=== PATIENT | male | born 1965 | race Caucasian/White ===

== ENCOUNTER 2019-03-22 14:48 | Inpatient (IN) | payer MEDICAID ==
[~2019-03-22] VITALS: Ht 182.9 cm; Wt 105.2 kg
[2019-03-22 15:35] LABS: BASOPHILS % (AUTO) 0.5 % (0.0-2.0); EOSINOPHILS % (AUTO) 0.4 % (1.0-6.0); HEMATOCRIT 45.2 % (41-53); HEMOGLOBIN 15.3 g/dL (13.5-17.5); LYMPHOCYTES # (AUTO) 1.2 K/uL (1.0-4.8); LYMPHOCYTES % (AUTO) 19.8 % (22.0-44.0); MEAN CORPUSCULAR HEMOGLOBIN 32.3 pg (26.0-34.0); MEAN CORPUSCULAR HGB CONC 33.9 G/dL (31.0-37.0); MEAN CORPUSCULAR VOLUME 95 fL (80-100); MONOCYTES # (AUTO) 0.5 K/uL (0.1-1.0); MONOCYTES % (AUTO) 7.8 % (2.0-9.0); NEUTROPHILS # (AUTO) 4.4 K/uL (1.8-7.7); NEUTROPHILS % (AUTO) 71.5 % (40.0-70.0); PLATELET COUNT (AUTO) 285 K/uL (150-450); RED BLOOD CELL COUNT(AUTO) 4.73 MIL/uL (4.50-5.90); RED CELL DISTRIBUTION WIDTH 13.4 % (11.5-14.5)
[2019-03-22] MEDS ORDERED: ALPR0.5T8 PO (15:43)
[2019-03-22 15:44] LABS: ANION GAP 12 mmol/L (8-16); CALCIUM, TOTAL 9.4 mg/dL (8.8-10.5); CARBON DIOXIDE 21 mmol/L (22-29); CHLORIDE 101 mmol/L (98-107); CREATININE 1.02 mg/dL (0.60-1.30); GLOMERULAR FILTR. RATE CALC > 60 mL/min (>60); GLUCOSE,RANDOM 221 mg/dL (70-110); POTASSIUM 3.9 mmol/L (3.5-5.1); SODIUM SERUM 134 mmol/L (136-145); UREA NITROGEN, BLOOD 9 mg/dL (7-18)
[2019-03-22 15:49] LABS: ALANINE AMINOTRANSFERASE 33 U/L (12-78); ALBUMIN 4.2 g/dL (3.4-5.0); ALKALINE PHOSPHATASE 105 U/L (46-116); ASPARTATE AMINOTRANSFERASE 20 U/L (15-37); BILIRUBIN,TOTAL 0.6 mg/dL (0.1-1.0); TOTAL PROTEIN, SERUM 7.5 g/dL (6.4-8.2)
[2019-03-22] MEDS ORDERED: LORazepam 2 MG TABLET PO ONE (16:00)
[2019-03-22 16:34] LABS: AMPHET/METH SCREEN,URINE NEGATIVE (NEGATIVE); BARBITURATE SCREEN, URINE NEGATIVE (NEGATIVE); BENZODIAZEPINES SCREEN,URINE POSITIVE (NEGATIVE); CANNABINOID SCREEN,URINE NEGATIVE (NEGATIVE); COCAINE SCREEN,URINE NEGATIVE (NEGATIVE); METHADONE SCREEN, URINE NEGATIVE (NEGATIVE); OPIATE SCREEN,URINE NEGATIVE (NEGATIVE)
[2019-03-22 16:35] LABS: PHENCYCLIDINE SCREEN,URINE NEGATIVE (NEGATIVE)
[2019-03-22] MEDS ORDERED: HALOPERIDOL 5 MG TABLET PO PRN (17:15)
[2019-03-22] MEDS ORDERED: LORazepam 2 MG TABLET PO PRN (17:15)
[2019-03-22] MEDS ORDERED: ACETAMINOPHEN 500 MG TABLET PO ONE (19:45)
[2019-03-22 20:00] VITALS: BP 139/92
[2019-03-22] MEDS ORDERED: ALBUTEROL SULFATE HFA 90 MCG/PUFF 8 GM INHALER IH PRN (20:45)
[2019-03-22] MEDS ORDERED: GuaiFENesin/D-METHORPHAN [SUGAR-FREE] 200-20MG/10 ML SYRUP UDCUP PO PRN (20:45)
[2019-03-22] MEDS ORDERED: DOCUSATE SODIUM 100 MG CAPSULE PO PRN (20:45)
[2019-03-22] MEDS ORDERED: PETROLATUM,WHITE 28 GM JELLY TP PRN (20:45)
[2019-03-22] MEDS ORDERED: IBUPROFEN 400 MG TABLET PO PRN (20:45)
[2019-03-22] MEDS ORDERED: CloNIDine HCL 0.1 MG TABLET PO PRN (20:45)
[2019-03-22] MEDS ORDERED: MAGNESIUM HYDROXIDE SUSPENSION 30 ML UDCUP PO PRN (20:45)
[2019-03-22 21:00] VITALS: BP 138/89
[2019-03-22 22:07] VITALS: BP 132/94
[2019-03-22 23:00] VITALS: BP 142/92
[2019-03-23] VITALS (7 sets, daily range): BP systolic 110–160; BP diastolic 75–98
[2019-03-23] MEDS: ONDANSETRON HCL 4 MG TABLET PO PRN (05:29)
[2019-03-23 06:29] LABS: BASOPHILS % (AUTO) 0.4 % (0.0-2.0); EOSINOPHILS % (AUTO) 1.3 % (1.0-6.0); HEMATOCRIT 45.1 % (41-53); HEMOGLOBIN 15.2 g/dL (13.5-17.5); LYMPHOCYTES # (AUTO) 1.3 K/uL (1.0-4.8); LYMPHOCYTES % (AUTO) 23.2 % (22.0-44.0); MEAN CORPUSCULAR HEMOGLOBIN 32.4 pg (26.0-34.0); MEAN CORPUSCULAR HGB CONC 33.6 G/dL (31.0-37.0); MEAN CORPUSCULAR VOLUME 96 fL (80-100); MONOCYTES # (AUTO) 0.6 K/uL (0.1-1.0); MONOCYTES % (AUTO) 9.9 % (2.0-9.0); NEUTROPHILS # (AUTO) 3.7 K/uL (1.8-7.7); NEUTROPHILS % (AUTO) 65.2 % (40.0-70.0); PLATELET COUNT (AUTO) 249 K/uL (150-450); RED BLOOD CELL COUNT(AUTO) 4.68 MIL/uL (4.50-5.90); RED CELL DISTRIBUTION WIDTH 13.3 % (11.5-14.5)
[2019-03-23 06:33] LABS: HEMOGLOBIN A1C 6.9 % (4.5-6.2)
[2019-03-23 06:49] LABS: ALANINE AMINOTRANSFERASE 31 U/L (12-78); ALBUMIN 3.8 g/dL (3.4-5.0); ALKALINE PHOSPHATASE 99 U/L (46-116); ANION GAP 13 mmol/L (8-16); ASPARTATE AMINOTRANSFERASE 16 U/L (15-37); BILIRUBIN,TOTAL 0.9 mg/dL (0.1-1.0); CALCIUM, TOTAL 9.2 mg/dL (8.8-10.5); CARBON DIOXIDE 25 mmol/L (22-29); CHLORIDE 101 mmol/L (98-107); CREATININE 0.91 mg/dL (0.60-1.30); GLOMERULAR FILTR. RATE CALC > 60 mL/min (>60); GLUCOSE,RANDOM 193 mg/dL (70-110); POTASSIUM 4.2 mmol/L (3.5-5.1); SODIUM SERUM 139 mmol/L (136-145); THYROID STIMULATING HORMONE 1.67 uIU/mL (0.36-3.74); TOTAL PROTEIN, SERUM 6.6 g/dL (6.4-8.2); UREA NITROGEN, BLOOD 9 mg/dL (7-18)
[2019-03-23] MEDS ORDERED: LORazepam 2 MG TABLET PO PRN (07:00)
[2019-03-23] MEDS: THIAMINE HCL 100 MG TABLET PO SCH (08:00)
[2019-03-23] MEDS: FOLIC ACID 1 MG TABLET PO SCH (08:00)
[2019-03-23] MEDS: MULTIVITAMINS, THERAPEUTIC TABLET PO SCH (08:00)
[2019-03-23] MEDS: LORazepam 2 MG TABLET PO SCH ×4 (08:03→20:14)
[2019-03-23 09:00] LABS: CHOL/HDL RATIO 5.4 (4.2-7.3); CHOLESTEROL 190 mg/dL (131-200); HDL CHOLESTEROL 35 mg/dL (40-60); TRIGLYCERIDES 480 mg/dL (15-150)
[2019-03-23] MEDS: LOPERAMIDE HCL 2 MG CAPSULE PO PRN (12:34)
[2019-03-24] MEDS: ZOLPIDEM TARTRATE 10 MG TABLET PO PRN ×2 (00:23→22:40)
[2019-03-24 00:45] VITALS: BP 128/101
[2019-03-24 00:47] VITALS: BP 128/101
[2019-03-24 06:35] VITALS: BP 109/86
[2019-03-24] MEDS: ACETAMINOPHEN 325 MG TABLET PO PRN (06:40)
[2019-03-24] MEDS: MetFORMIN HCL 500 MG TABLET PO SCH (06:46)
[2019-03-24] MEDS: ONDANSETRON HCL 4 MG TABLET PO PRN (08:03)
[2019-03-24] MEDS: MULTIVITAMINS, THERAPEUTIC TABLET PO SCH (08:03)
[2019-03-24] MEDS: PARoxetine HCL 20 MG TABLET PO SCH (08:04)
[2019-03-24] MEDS: LORazepam 2 MG TABLET PO SCH ×4 (08:04→20:28)
[2019-03-24] MEDS: FOLIC ACID 1 MG TABLET PO SCH (08:04)
[2019-03-24] MEDS: THIAMINE HCL 100 MG TABLET PO SCH (08:04)
[2019-03-24] MEDS: AmLODIPine BESYLATE 5 MG TABLET PO SCH (08:04)
[2019-03-24] MEDS: MAG HYDROX/AL HYDROX/SIMETH ES 30 ML SUSPENSION UDCUP PO PRN (08:06)
[2019-03-24 08:43] VITALS: BP 145/89
[2019-03-24] MEDS: ONDANSETRON HCL 4 MG/2 ML VIAL IM PRN (11:47)
[2019-03-24 16:30] VITALS: BP 146/99
[2019-03-24 18:00] VITALS: BP 140/94
[2019-03-25 01:15] VITALS: BP 126/89
[2019-03-25] MEDS: ONDANSETRON HCL 4 MG/2 ML VIAL IM PRN ×2 (01:17→10:39)
[2019-03-25] MEDS: LOPERAMIDE HCL 2 MG CAPSULE PO PRN ×2 (01:17→05:25)
[2019-03-25 06:35] LABS: GLUCOMETER DEV NAME(LOC) 3E.I; GLUCOSE,POINT OF CARE 205 MG/DL (70-110)
[2019-03-25] MEDS ORDERED: LORazepam 1 MG TABLET PO PRN (07:00)
[2019-03-25] MEDS: MetFORMIN HCL 500 MG TABLET PO SCH (07:01)
[2019-03-25 08:05] VITALS: BP 135/81
[2019-03-25] MEDS: FOLIC ACID 1 MG TABLET PO SCH (08:05)
[2019-03-25] MEDS: AmLODIPine BESYLATE 5 MG TABLET PO SCH (08:05)
[2019-03-25] MEDS: PARoxetine HCL 20 MG TABLET PO SCH (08:05)
[2019-03-25] MEDS: MULTIVITAMINS, THERAPEUTIC TABLET PO SCH (08:05)
[2019-03-25] MEDS: THIAMINE HCL 100 MG TABLET PO SCH (08:05)
[2019-03-25] MEDS: LORazepam 1 MG TABLET PO SCH ×4 (08:05→21:02)
[2019-03-25] MEDS: NICOTINE 14 MG/24 HOUR PATCH TD PRN (09:26)
[2019-03-25 12:51] VITALS: BP 130/85
[2019-03-25 12:52] VITALS: BP 130/85
[2019-03-25 16:56] LABS: GLUCOMETER DEV NAME(LOC) 3E.I; GLUCOSE,POINT OF CARE 193 MG/DL (70-110)
[2019-03-25 17:18] VITALS: BP 129/76
[2019-03-25] MEDS: ZOLPIDEM TARTRATE 10 MG TABLET PO PRN (23:16)
[2019-03-26 00:27] VITALS: BP 122/85
[2019-03-26 00:30] VITALS: BP 122/85
[2019-03-26 05:46] LABS: GLUCOMETER DEV NAME(LOC) 3E.I; GLUCOSE,POINT OF CARE 184 MG/DL (70-110)
[2019-03-26] MEDS: ONDANSETRON HCL 4 MG/2 ML VIAL IM PRN ×2 (06:26→06:27)
[2019-03-26] MEDS: MetFORMIN HCL 500 MG TABLET PO SCH (06:59)
[2019-03-26] MEDS: THIAMINE HCL 100 MG TABLET PO SCH (08:53)
[2019-03-26] MEDS: FOLIC ACID 1 MG TABLET PO SCH (08:54)
[2019-03-26] MEDS: MULTIVITAMINS, THERAPEUTIC TABLET PO SCH (08:54)
[2019-03-26] MEDS: AmLODIPine BESYLATE 5 MG TABLET PO SCH (08:54)
[2019-03-26] MEDS: PARoxetine HCL 20 MG TABLET PO SCH (08:54)
[2019-03-26] MEDS: MAG HYDROX/AL HYDROX/SIMETH ES 30 ML SUSPENSION UDCUP PO PRN (09:33)
[2019-03-26 09:39] VITALS: BP 134/68
[2019-03-26] MEDS: NICOTINE 14 MG/24 HOUR PATCH TD PRN (10:02)
[2019-03-26 10:19] VITALS: BP 131/68
[2019-03-26] MEDS: LORazepam 1 MG TABLET PO PRN ×2 (16:16→20:31)
[2019-03-26 16:30] VITALS: BP 135/86
[2019-03-26 16:45] LABS: GLUCOMETER DEV NAME(LOC) 3E.I; GLUCOSE,POINT OF CARE 190 MG/DL (70-110)
[2019-03-26 18:57] VITALS: BP 129/81
[2019-03-26 19:05] LABS: GLUCOMETER DEV NAME(LOC) 3E.I; GLUCOSE,POINT OF CARE 136 MG/DL (70-110)
[2019-03-27] MEDS: MAG HYDROX/AL HYDROX/SIMETH ES 30 ML SUSPENSION UDCUP PO PRN ×3 (03:19→14:30)
[2019-03-27 03:28] VITALS: BP 124/75
[2019-03-27 06:11] LABS: GLUCOMETER DEV NAME(LOC) 3E.I; GLUCOSE,POINT OF CARE 249 MG/DL (70-110)
[2019-03-27] MEDS: MetFORMIN HCL 500 MG TABLET PO SCH (07:04)
[2019-03-27] MEDS: THIAMINE HCL 100 MG TABLET PO SCH (09:04)
[2019-03-27] MEDS: FOLIC ACID 1 MG TABLET PO SCH (09:04)
[2019-03-27] MEDS: MULTIVITAMINS, THERAPEUTIC TABLET PO SCH (09:04)
[2019-03-27] MEDS: NICOTINE 14 MG/24 HOUR PATCH TD PRN (09:04)
[2019-03-27] MEDS: PARoxetine HCL 20 MG TABLET PO SCH (09:04)
[2019-03-27] MEDS: AmLODIPine BESYLATE 5 MG TABLET PO SCH (09:04)
[2019-03-27 09:36] VITALS: BP 134/68
[2019-03-27] MEDS: ONDANSETRON HCL 4 MG/2 ML VIAL IM PRN (10:38)
[2019-03-27] MEDS ORDERED: HydrOXYzine PAMOATE 50 MG CAPSULE PO PRN (11:45)
[2019-03-27] MEDS ORDERED: PARO-37 PO (13:27)
[2019-03-27] MEDS ORDERED: AMLO5TAB9 PO (14:35)
[2019-03-27] MEDS ORDERED: METF-960 PO (14:36)
[2019-03-27] MEDS ORDERED: MULT-1303 PO (14:36)
[2019-03-27] MEDS ORDERED: FOLI1 PO (14:36)
[2019-03-27] MEDS ORDERED: THIA100T67 PO (14:37)
[2019-03-27 16:31] LABS: GLUCOMETER DEV NAME(LOC) 3E.I; GLUCOSE,POINT OF CARE 199 MG/DL (70-110)
[2019-03-27] MEDS: ACETAMINOPHEN 325 MG TABLET PO PRN (17:22)
[2019-03-28] MEDS ORDERED: MetFORMIN HCL 500 MG TABLET PO SCH (07:30)
== END 2019-03-27 18:15 | disposition home or self-care (01) | DRG 751 ==
LOC: EMS 14:50 → 3EI 21:16
DX: F33.2 Major depressive disorder, recurrent severe without psychotic features (principal); E11.9 Type 2 diabetes mellitus without complications; R45.851 Suicidal ideations; E78.5 Hyperlipidemia, unspecified; F10.20 Alcohol dependence, uncomplicated; F41.9 Anxiety disorder, unspecified; I10 Essential (primary) hypertension; F17.210 Nicotine dependence, cigarettes, uncomplicated; F19.10 Other psychoactive substance abuse, uncomplicated; Z79.899 Other long term (current) drug therapy
CPT/HCPCS: 83036; 84443; G0480; J2405; Q0162

== ENCOUNTER 2019-12-08 09:16 | Inpatient (IN) | payer MEDICAID, OTHER ==
[~2019-12-08] VITALS: Ht 177.8 cm; Wt 90.7 kg
[~2019-12-08 09:16] MED LIST: AMLO5TAB9 PO; FOLI-130 PO; METF-960 PO; MULT-1303 PO; PARO-37 PO; THIA100T67 PO
[2019-12-08] MEDS ORDERED: TRAZ-257 PO (09:52)
[2019-12-08] MEDS ORDERED: OMEP20 PO (09:52)
[2019-12-08] MEDS ORDERED: PANT-31 PO ×2 (09:52→13:54)
[2019-12-08] MEDS ORDERED: IBUPROFEN 600 MG TABLET PO ONE (10:15)
[2019-12-08 10:26] LABS: BASOPHILS % (AUTO) 0.2 % (0.0-2.0); EOSINOPHILS % (AUTO) 0.3 % (1.0-6.0); HEMOGLOBIN 14.5 g/dL (13.5-17.5); LYMPHOCYTES # (AUTO) 0.9 K/uL (1.0-4.8); LYMPHOCYTES % (AUTO) 12.7 % (22.0-44.0); MEAN CORPUSCULAR HEMOGLOBIN 32.6 pg (26.0-34.0); MEAN CORPUSCULAR HGB CONC 34.6 G/dL (31.0-37.0); MEAN CORPUSCULAR VOLUME 94 fL (80-100); MONOCYTES # (AUTO) 0.4 K/uL (0.1-1.0); NEUTROPHILS # (AUTO) 5.6 K/uL (1.8-7.7); NEUTROPHILS % (AUTO) 80.8 % (40.0-70.0); PLATELET COUNT (AUTO) 265 K/uL (150-450); RED BLOOD CELL COUNT(AUTO) 4.46 MIL/uL (4.50-5.90); RED CELL DISTRIBUTION WIDTH 13.7 % (11.5-14.5)
[2019-12-08 10:27] LABS: GLUCOSE,POINT OF CARE 120 MG/DL (70-110)
[2019-12-08 10:44] LABS: ANION GAP 10 mmol/L (8-16); CALCIUM, TOTAL 9.8 mg/dL (8.8-10.5); CARBON DIOXIDE 25 mmol/L (22-29); CHLORIDE 103 mmol/L (98-107); CREATININE 0.83 mg/dL (0.60-1.30); GLOMERULAR FILTR. RATE CALC > 60 mL/min (>60); GLUCOSE,RANDOM 118 mg/dL (70-110); POTASSIUM 3.7 mmol/L (3.5-5.1); SODIUM SERUM 138 mmol/L (136-145); UREA NITROGEN, BLOOD 14 mg/dL (7-18)
[2019-12-08 10:49] LABS: ALANINE AMINOTRANSFERASE 17 U/L (12-78); ALBUMIN 4.3 g/dL (3.4-5.0); ALKALINE PHOSPHATASE 99 U/L (46-116); ASPARTATE AMINOTRANSFERASE 7 U/L (15-37); BILIRUBIN,TOTAL 0.7 mg/dL (0.1-1.0); TOTAL PROTEIN, SERUM 7.3 g/dL (6.4-8.2)
[2019-12-08 10:51] LABS: AMPHET/METH SCREEN,URINE NEGATIVE (NEGATIVE); BARBITURATE SCREEN, URINE NEGATIVE (NEGATIVE); BENZODIAZEPINES SCREEN,URINE NEGATIVE (NEGATIVE); CANNABINOID SCREEN,URINE NEGATIVE (NEGATIVE); COCAINE SCREEN,URINE NEGATIVE (NEGATIVE); METHADONE SCREEN, URINE NEGATIVE (NEGATIVE); OPIATE SCREEN,URINE NEGATIVE (NEGATIVE)
[2019-12-08 10:52] LABS: PHENCYCLIDINE SCREEN,URINE NEGATIVE (NEGATIVE)
[2019-12-08] MEDS ORDERED: LORazepam 1 MG TABLET PO ONE (11:45)
[2019-12-08] MEDS ORDERED: HALOPERIDOL 5 MG TABLET PO ONE (11:45)
[2019-12-08] MEDS ORDERED: TRAZ150 PO (13:54)
[2019-12-08] MEDS ORDERED: METF-911 PO (13:54)
[2019-12-08] MEDS ORDERED: SERT100T12 PO (13:54)
[2019-12-08] MEDS ORDERED: ACETAMINOPHEN 500 MG TABLET PO ONE (14:00)
[2019-12-08 14:35] VITALS: BP 119/73
[2019-12-08 14:45] VITALS: BP 119/73
[2019-12-08] MEDS ORDERED: ZOLPIDEM TARTRATE 10 MG TABLET PO PRN (14:45)
[2019-12-08] MEDS: NICOTINE 7 MG/24 HOUR PATCH TD SCH (16:23)
[2019-12-08 17:00] VITALS: BP 103/61
[2019-12-08] MEDS ORDERED: LOPERAMIDE HCL 2 MG CAPSULE PO PRN (17:00)
[2019-12-08] MEDS ORDERED: ALBUTEROL SULFATE HFA 90 MCG/PUFF 8 GM INHALER IH PRN (17:00)
[2019-12-08] MEDS ORDERED: MAGNESIUM HYDROXIDE SUSPENSION 30 ML UDCUP PO PRN (17:00)
[2019-12-08] MEDS ORDERED: NICOTINE 14 MG/24 HOUR PATCH TD PRN (17:00)
[2019-12-08] MEDS ORDERED: DOCUSATE SODIUM 100 MG CAPSULE PO PRN (17:00)
[2019-12-08] MEDS ORDERED: CloNIDine HCL 0.1 MG TABLET PO PRN (17:00)
[2019-12-08] MEDS ORDERED: MAG HYDROX/AL HYDROX/SIMETH ES 30 ML SUSPENSION UDCUP PO PRN (17:00)
[2019-12-08] MEDS ORDERED: GuaiFENesin/D-METHORPHAN [SUGAR-FREE] 200-20MG/10 ML SYRUP UDCUP PO PRN (17:00)
[2019-12-08] MEDS ORDERED: ONDANSETRON HCL 4 MG TABLET PO PRN (17:00)
[2019-12-08] MEDS ORDERED: PETROLATUM,WHITE 28 GM JELLY TP PRN (17:00)
[2019-12-09] MEDS: HALOPERIDOL 5 MG TABLET PO PRN ×2 (03:29→08:58)
[2019-12-09] MEDS: LORazepam 2 MG TABLET PO PRN ×3 (03:29→18:45)
[2019-12-09 03:52] VITALS: BP 114/72
[2019-12-09] MEDS: MetFORMIN HCL 500 MG ER TABLET PO SCH (06:44)
[2019-12-09 08:00] VITALS: BP 127/69
[2019-12-09] MEDS: PANTOPRAZOLE SODIUM 40 MG DR TABLET PO SCH (08:26)
[2019-12-09] MEDS: NICOTINE 7 MG/24 HOUR PATCH TD SCH (08:28)
[2019-12-09] MEDS: SERTRALINE HCL 100 MG TABLET PO SCH (13:41)
[2019-12-09 16:42] VITALS: BP 110/69
[2019-12-09] MEDS: IBUPROFEN 400 MG TABLET PO PRN (16:42)
[2019-12-09] MEDS: TraZODone HCL 150 MG TABLET PO SCH (20:05)
[2019-12-10 05:36] LABS: GLUCOMETER DEV NAME(LOC) 3E.I 2; GLUCOSE,POINT OF CARE 141 MG/DL (70-110)
[2019-12-10] MEDS: MetFORMIN HCL 500 MG ER TABLET PO SCH (06:33)
[2019-12-10] MEDS: HALOPERIDOL 5 MG TABLET PO PRN ×2 (07:06→12:52)
[2019-12-10] MEDS: LORazepam 2 MG TABLET PO PRN ×2 (07:06→12:52)
[2019-12-10] MEDS: PANTOPRAZOLE SODIUM 40 MG DR TABLET PO SCH (08:35)
[2019-12-10] MEDS: SERTRALINE HCL 100 MG TABLET PO SCH (08:36)
[2019-12-10] MEDS: NICOTINE 7 MG/24 HOUR PATCH TD SCH (08:45)
[2019-12-10 09:09] VITALS: BP 124/76
[2019-12-10 11:28] VITALS: BP 124/86
[2019-12-10] MEDS: ACETAMINOPHEN 325 MG TABLET PO PRN (11:29)
[2019-12-10 16:02] VITALS: BP 92/66
[2019-12-10 16:20] LABS: GLUCOMETER DEV NAME(LOC) 3E.I 2; GLUCOSE,POINT OF CARE 123 MG/DL (70-110)
[2019-12-10] MEDS: TraZODone HCL 150 MG TABLET PO SCH (21:01)
[2019-12-11 05:38] LABS: GLUCOMETER DEV NAME(LOC) 3E.I 2; GLUCOSE,POINT OF CARE 130 MG/DL (70-110)
[2019-12-11] MEDS: LORazepam 2 MG TABLET PO PRN (05:51)
[2019-12-11] MEDS: HALOPERIDOL 5 MG TABLET PO PRN (05:51)
[2019-12-11] MEDS: MetFORMIN HCL 500 MG ER TABLET PO SCH (06:28)
[2019-12-11 08:39] VITALS: BP 102/63
[2019-12-11] MEDS: SERTRALINE HCL 100 MG TABLET PO SCH (09:34)
[2019-12-11] MEDS: PANTOPRAZOLE SODIUM 40 MG DR TABLET PO SCH (09:34)
[2019-12-11] MEDS: NICOTINE 7 MG/24 HOUR PATCH TD SCH (09:35)
[2019-12-11 12:14] VITALS: BP 115/70
[2019-12-11] MEDS: ACETAMINOPHEN 325 MG TABLET PO PRN (12:14)
[2019-12-11 16:46] VITALS: BP 128/79
[2019-12-11] MEDS: IBUPROFEN 400 MG TABLET PO PRN (16:46)
[2019-12-11 17:09] LABS: GLUCOMETER DEV NAME(LOC) 3E.I 2; GLUCOSE,POINT OF CARE 120 MG/DL (70-110)
[2019-12-11] MEDS: QUEtiapine FUMARATE 200 MG TABLET PO SCH (20:03)
[2019-12-11] MEDS: TraZODone HCL 150 MG TABLET PO SCH (20:04)
[2019-12-12 05:22] LABS: GLUCOMETER DEV NAME(LOC) 3E.I 2; GLUCOSE,POINT OF CARE 126 MG/DL (70-110)
[2019-12-12] MEDS: MetFORMIN HCL 500 MG ER TABLET PO SCH (07:00)
[2019-12-12 08:00] VITALS: BP 110/71
[2019-12-12 08:34] VITALS: BP 110/71
[2019-12-12] MEDS: HALOPERIDOL 5 MG TABLET PO PRN (08:34)
[2019-12-12] MEDS: PANTOPRAZOLE SODIUM 40 MG DR TABLET PO SCH (08:34)
[2019-12-12] MEDS: LORazepam 2 MG TABLET PO PRN (08:34)
[2019-12-12] MEDS: SERTRALINE HCL 100 MG TABLET PO SCH (08:34)
[2019-12-12] MEDS: NICOTINE 7 MG/24 HOUR PATCH TD SCH (08:34)
[2019-12-12] MEDS: ACETAMINOPHEN 325 MG TABLET PO PRN (08:34)
[2019-12-12 17:07] LABS: GLUCOMETER DEV NAME(LOC) 3E.I 2; GLUCOSE,POINT OF CARE 173 MG/DL (70-110)
[2019-12-12 17:48] VITALS: BP 93/60
[2019-12-12] MEDS: QUEtiapine FUMARATE 200 MG TABLET PO SCH (20:14)
[2019-12-12] MEDS: TraZODone HCL 150 MG TABLET PO SCH (20:14)
[2019-12-13 05:32] LABS: GLUCOMETER DEV NAME(LOC) 3E.I 2; GLUCOSE,POINT OF CARE 122 MG/DL (70-110)
[2019-12-13] MEDS: HALOPERIDOL 5 MG TABLET PO PRN (06:03)
[2019-12-13] MEDS: LORazepam 2 MG TABLET PO PRN (06:03)
[2019-12-13 06:10] VITALS: BP 116/60
[2019-12-13] MEDS: ACETAMINOPHEN 325 MG TABLET PO PRN ×2 (06:33→20:03)
[2019-12-13] MEDS: MetFORMIN HCL 500 MG ER TABLET PO SCH (06:39)
[2019-12-13] MEDS: PANTOPRAZOLE SODIUM 40 MG DR TABLET PO SCH (08:20)
[2019-12-13] MEDS: SERTRALINE HCL 100 MG TABLET PO SCH (08:20)
[2019-12-13] MEDS: NICOTINE 7 MG/24 HOUR PATCH TD SCH (08:26)
[2019-12-13 10:00] VITALS: BP 103/72
[2019-12-13] MEDS: IBUPROFEN 400 MG TABLET PO PRN (13:58)
[2019-12-13 16:30] LABS: GLUCOMETER DEV NAME(LOC) 3E.I 2; GLUCOSE,POINT OF CARE 121 MG/DL (70-110)
[2019-12-13 17:11] VITALS: BP 102/62
[2019-12-13 20:00] VITALS: BP 110/60
[2019-12-13] MEDS: QUEtiapine FUMARATE 200 MG TABLET PO SCH (20:02)
[2019-12-13] MEDS: TraZODone HCL 150 MG TABLET PO SCH (20:02)
[2019-12-14 05:42] LABS: GLUCOMETER DEV NAME(LOC) 3E.I 2; GLUCOSE,POINT OF CARE 120 MG/DL (70-110)
[2019-12-14 06:10] VITALS: BP 117/71
[2019-12-14] MEDS: IBUPROFEN 400 MG TABLET PO PRN (06:17)
[2019-12-14] MEDS: HALOPERIDOL 5 MG TABLET PO PRN ×2 (06:17→18:48)
[2019-12-14] MEDS: LORazepam 2 MG TABLET PO PRN ×2 (06:18→18:48)
[2019-12-14] MEDS: MetFORMIN HCL 500 MG ER TABLET PO SCH (06:36)
[2019-12-14 09:13] VITALS: BP 135/57
[2019-12-14] MEDS: SERTRALINE HCL 100 MG TABLET PO SCH (09:22)
[2019-12-14] MEDS: PANTOPRAZOLE SODIUM 40 MG DR TABLET PO SCH (09:24)
[2019-12-14] MEDS: NICOTINE 7 MG/24 HOUR PATCH TD SCH (09:27)
[2019-12-14] MEDS: ACETAMINOPHEN 325 MG TABLET PO PRN (12:56)
[2019-12-14 16:00] VITALS: BP 102/61
[2019-12-14 16:21] LABS: GLUCOMETER DEV NAME(LOC) 3E.I 2; GLUCOSE,POINT OF CARE 150 MG/DL (70-110)
[2019-12-14] MEDS: TraZODone HCL 150 MG TABLET PO SCH (20:14)
[2019-12-14] MEDS: QUEtiapine FUMARATE 300 MG TABLET PO SCH (20:14)
[2019-12-15 05:23] LABS: GLUCOMETER DEV NAME(LOC) 3E.I 2; GLUCOSE,POINT OF CARE 129 MG/DL (70-110)
[2019-12-15 06:38] VITALS: BP 106/78
[2019-12-15] MEDS: MetFORMIN HCL 500 MG ER TABLET PO SCH (06:38)
[2019-12-15] MEDS: HALOPERIDOL 5 MG TABLET PO PRN (06:38)
[2019-12-15] MEDS: LORazepam 2 MG TABLET PO PRN ×2 (06:38→16:16)
[2019-12-15] MEDS: ACETAMINOPHEN 325 MG TABLET PO PRN ×2 (06:39→16:16)
[2019-12-15] MEDS: SERTRALINE HCL 100 MG TABLET PO SCH (08:50)
[2019-12-15] MEDS: PANTOPRAZOLE SODIUM 40 MG DR TABLET PO SCH (08:50)
[2019-12-15] MEDS: NICOTINE 7 MG/24 HOUR PATCH TD SCH (08:52)
[2019-12-15 09:00] VITALS: BP 105/77
[2019-12-15] MEDS: IBUPROFEN 400 MG TABLET PO PRN (09:00)
[2019-12-15 09:08] VITALS: BP 105/77
[2019-12-15 16:00] VITALS: BP 125/69
[2019-12-15 16:17] VITALS: BP 127/65
[2019-12-15 16:32] LABS: GLUCOMETER DEV NAME(LOC) 3E.I 2; GLUCOSE,POINT OF CARE 161 MG/DL (70-110)
[2019-12-15] MEDS: QUEtiapine FUMARATE 300 MG TABLET PO SCH (19:59)
[2019-12-15] MEDS: TraZODone HCL 150 MG TABLET PO SCH (20:00)
[2019-12-16 04:02] VITALS: BP 115/74
[2019-12-16] MEDS: HALOPERIDOL 5 MG TABLET PO PRN (04:05)
[2019-12-16] MEDS: ACETAMINOPHEN 325 MG TABLET PO PRN (04:06)
[2019-12-16] MEDS: LORazepam 2 MG TABLET PO PRN (04:10)
[2019-12-16] MEDS: MetFORMIN HCL 500 MG ER TABLET PO SCH (06:32)
[2019-12-16 09:13] VITALS: BP 108/71
[2019-12-16] MEDS: NICOTINE 7 MG/24 HOUR PATCH TD SCH (10:12)
[2019-12-16] MEDS: SERTRALINE HCL 100 MG TABLET PO SCH (10:13)
[2019-12-16] MEDS: PANTOPRAZOLE SODIUM 40 MG DR TABLET PO SCH (10:13)
[2019-12-16] MEDS ORDERED: TRAZ150 PO (11:20)
[2019-12-16] MEDS ORDERED: QUET300T18 PO (11:20)
[2019-12-16] MEDS ORDERED: SERT100T12 PO (11:20)
[2019-12-16 17:44] LABS: GLUCOMETER DEV NAME(LOC) 3E.I 2; GLUCOSE,POINT OF CARE 162 MG/DL (70-110)
== END 2019-12-16 16:45 | disposition home or self-care (01) | DRG 885 ==
LOC: EMS 09:17 → 3EI 13:44
DX: F33.3 Major depressive disorder, recurrent, severe with psychotic symptoms (principal); R45.851 Suicidal ideations; I10 Essential (primary) hypertension; K21.9 Gastro-esophageal reflux disease without esophagitis; F41.9 Anxiety disorder, unspecified; R51 Headache; E11.9 Type 2 diabetes mellitus without complications; F10.10 Alcohol abuse, uncomplicated; F19.10 Other psychoactive substance abuse, uncomplicated; F99 Mental disorder, not otherwise specified; E78.5 Hyperlipidemia, unspecified; Z59.0 Homelessness; Z79.899 Other long term (current) drug therapy; Z87.891 Personal history of nicotine dependence; Z91.5 Personal history of self-harm; Z98.890 Other specified postprocedural states
CPT/HCPCS: 82948; 83036; 93005; G0480

== ENCOUNTER 2023-03-23 10:35 | Emergency (ER) | payer MEDICARE, OTHER ==
[~2023-03-23] VITALS: Ht 185.4 cm; Wt 111.4 kg
[~2023-03-23 10:35] MED LIST changes: -AMLO5TAB9 PO; -FOLI-130 PO; +METF-81 PO; -METF-960 PO; -MULT-1303 PO; +PANT-31 PO; -PARO-37 PO; +QUET300T19 PO; +SERT-440 PO; -THIA100T67 PO; +TRAZ-283 PO
[2023-03-23] MEDS ORDERED: METF-1185 PO (10:49)
[2023-03-23] MEDS ORDERED: PYRI-9 PO (10:49)
[2023-03-23] MEDS ORDERED: GABA-1201 PO (10:49)
[2023-03-23] MEDS ORDERED: MELA3TAB89 PO (10:49)
[2023-03-23] MEDS ORDERED: PROC5TAB54 PO (10:49)
[2023-03-23] MEDS ORDERED: TRAZ-257 PO (10:49)
[2023-03-23] MEDS ORDERED: DULO20CA71 PO (10:49)
[2023-03-23] MEDS ORDERED: PANT-31 PO (10:49)
[2023-03-23] MEDS ORDERED: HYDR-4584 PO (10:49)
[2023-03-23] MEDS ORDERED: MIRT-149 PO (10:49)
[2023-03-23] MEDS ORDERED: ALOG25TA PO (10:49)
[2023-03-23] MEDS ORDERED: LOSA-381 PO (10:49)
[2023-03-23] MEDS ORDERED: CLON-592 PO (10:49)
[2023-03-23] MEDS ORDERED: SODIUM CHLORIDE 0.9% 1,000 ML IV ONE (11:30)
[2023-03-23] MEDS ORDERED: MORPHINE SULFATE 2 MG/ML SYRINGE IVP ONE (11:30)
[2023-03-23] MEDS ORDERED: ONDANSETRON HCL 4 MG/2 ML VIAL IVP ONE (11:30)
[2023-03-23] MEDS ORDERED: LOPERAMIDE HCL 2 MG CAPSULE PO ONE (11:30)
[2023-03-23 11:51] LABS: BASOPHILS % (AUTO) 0.6 % (0.0-2.0); HEMATOCRIT 39.8 % (41-53); HEMOGLOBIN 13.6 g/dL (13.5-17.5); LYMPHOCYTES # (AUTO) 1.1 K/uL (1.0-4.8); LYMPHOCYTES % (AUTO) 14.6 % (22.0-44.0); MEAN CORPUSCULAR HEMOGLOBIN 30.5 pg (26.0-34.0); MEAN CORPUSCULAR HGB CONC 34.3 G/dL (31.0-37.0); MEAN CORPUSCULAR VOLUME 89 fL (80-100); MONOCYTES # (AUTO) 0.6 K/uL (0.1-1.0); MONOCYTES % (AUTO) 8.2 % (2.0-9.0); NEUTROPHILS # (AUTO) 5.9 K/uL (1.8-7.7); NEUTROPHILS % (AUTO) 75.6 % (40.0-70.0); PLATELET COUNT (AUTO) 230 K/uL (150-450); RED BLOOD CELL COUNT(AUTO) 4.46 MIL/uL (4.50-5.90); RED CELL DISTRIBUTION WIDTH 13.2 % (11.5-14.5); WHITE BLOOD COUNT (AUTO) 7.8 K/uL (4.5-11.0)
[2023-03-23 12:01] LABS: ANION GAP 14 mmol/L (8-16); CALCIUM, TOTAL 8.7 mg/dL (8.8-10.5); CARBON DIOXIDE 20 mmol/L (22-29); CHLORIDE 99 mmol/L (98-107); CREATININE 0.95 mg/dL (0.60-1.30); GLOMERULAR FILTR. RATE CALC > 60 mL/min (>60); GLUCOSE,RANDOM 135 mg/dL (70-110); POTASSIUM 3.8 mmol/L (3.5-5.1); SODIUM SERUM 133 mmol/L (136-145); UREA NITROGEN, BLOOD 13 mg/dL (7-18)
[2023-03-23 12:07] LABS: ALANINE AMINOTRANSFERASE 62 U/L (12-78); ALBUMIN 3.7 g/dL (3.4-5.0); ALKALINE PHOSPHATASE 84 U/L (46-116); ASPARTATE AMINOTRANSFERASE 27 U/L (15-37); BILIRUBIN,TOTAL 0.4 mg/dL (0.1-1.0); LIPASE 58 U/L (16-77); TOTAL PROTEIN, SERUM 6.5 g/dL (6.4-8.2); TROPONIN I-HIGH SENSITIVITY 5 ng/L (<76)
[2023-03-23 12:31] LABS: APPEARANCE,URINE CLEAR (CLEAR); BILIRUBIN,URINE NEGATIVE (NEGATIVE); COLOR,URINE LIGHT YELLOW (YELLOW); GLUCOSE, URINE (UA) NEGATIVE (NEGATIVE); KETONES,URINE TRACE mg/dL (NEGATIVE); LEUKOCYTE ESTERASE ,URINE NEGATIVE (NEGATIVE); NITRATE,URINE NEGATIVE (NEGATIVE); OCCULT BLOOD,URINE NEGATIVE (NEGATIVE); PROTEIN,URINE NEGATIVE (NEGATIVE); SPECIFIC GRAVITIY, URINE 1.012 (1.003-1.030); UROBILINOGEN,URINE <=1.0 mg/dL (<=1.0)
[2023-03-23] MEDS ORDERED: ONDA-104 PO (13:12)
[2023-03-23] MEDS ORDERED: LOPE-232 PO (13:12)
[2023-03-23] MEDS ORDERED: KETOROLAC TROMETHAMINE 30 MG/ML VIAL IVP ONE (13:15)
[2023-03-23] MEDS ORDERED: METOCLOPRAMIDE HCL 5 MG/ML 2 ML VIAL IVP ONE (13:15)
[2023-03-23 13:25] VITALS: BP 116/76; PULSE 81; RESP 20; TEMP 98
== END 2023-03-23 13:51 | disposition home or self-care (01) ==
LOC: EMS 10:52
DX: K52.9 Noninfective gastroenteritis and colitis, unspecified (principal); F10.20 Alcohol dependence, uncomplicated; F41.9 Anxiety disorder, unspecified; F32.A Depression, unspecified; E11.9 Type 2 diabetes mellitus without complications; F20.9 Schizophrenia, unspecified; Z87.891 Personal history of nicotine dependence; Z90.49 Acquired absence of other specified parts of digestive tract; Z98.890 Other specified postprocedural states; Y90.9 Presence of alcohol in blood, level not specified
CPT/HCPCS: 99285; 74176; 96374; 96375; 71045; 96361; 80053; 81003; 82962; 83690; 84484; 85025; 36415; 93005; J1885; J2765; J2270; J2405; J7030

== ENCOUNTER 2023-04-26 06:43 | Emergency (ER) | payer MEDICARE, OTHER ==
[~2023-04-26] VITALS: Ht 180.3 cm; Wt 104.5 kg
[~2023-04-26 06:43] MED LIST changes: +ALOG25TA PO; +CLON-592 PO; +DULO20CA71 PO; +GABA-1201 PO; +HYDR-4584 PO; +LOPE-232 PO; +LOSA-381 PO; +MELA3TAB89 PO; +METF-1185 PO; -METF-81 PO; +MIRT-149 PO; +ONDA-104 PO; +PROC5TAB54 PO; +PYRI-9 PO; -QUET300T19 PO; -SERT-440 PO; +TRAZ-257 PO; -TRAZ-283 PO
[2023-04-26 06:49] VITALS: TEMP 98.5
[2023-04-26 07:15] LABS: BASOPHILS % (AUTO) 0.4 % (0.0-2.0); EOSINOPHILS % (AUTO) 1.1 % (1.0-6.0); HEMATOCRIT 42.9 % (41-53); HEMOGLOBIN 14.9 g/dL (13.5-17.5); LYMPHOCYTES # (AUTO) 1.3 K/uL (1.0-4.8); LYMPHOCYTES % (AUTO) 16.7 % (22.0-44.0); MEAN CORPUSCULAR HEMOGLOBIN 30.7 pg (26.0-34.0); MEAN CORPUSCULAR HGB CONC 34.7 G/dL (31.0-37.0); MEAN CORPUSCULAR VOLUME 89 fL (80-100); MONOCYTES # (AUTO) 0.4 K/uL (0.1-1.0); MONOCYTES % (AUTO) 5.2 % (2.0-9.0); NEUTROPHILS # (AUTO) 5.9 K/uL (1.8-7.7); NEUTROPHILS % (AUTO) 76.6 % (40.0-70.0); PLATELET COUNT (AUTO) 232 K/uL (150-450); RED BLOOD CELL COUNT(AUTO) 4.84 MIL/uL (4.50-5.90); RED CELL DISTRIBUTION WIDTH 12.5 % (11.5-14.5); WHITE BLOOD COUNT (AUTO) 7.7 K/uL (4.5-11.0)
[2023-04-26] MEDS ORDERED: SODIUM CHLORIDE 0.9% 1,000 ML IV ONE ×2 (07:15→08:00)
[2023-04-26] MEDS ORDERED: METOCLOPRAMIDE HCL 5 MG/ML 2 ML VIAL IVP ONE (07:15)
[2023-04-26] MEDS ORDERED: MORPHINE SULFATE 2 MG/ML SYRINGE IVP ONE (07:15)
[2023-04-26] MEDS ORDERED: DiphenhydrAMINE HCL 50 MG/ML VIAL IVP ONE (07:15)
[2023-04-26] MEDS ORDERED: KETOROLAC TROMETHAMINE 30 MG/ML VIAL IVP ONE (07:15)
[2023-04-26 07:27] LABS: ANION GAP 18 mmol/L (8-16); CALCIUM, TOTAL 8.5 mg/dL (8.8-10.5); CARBON DIOXIDE 19 mmol/L (22-29); CHLORIDE 96 mmol/L (98-107); CREATININE 1.35 mg/dL (0.60-1.30); GLOMERULAR FILTR. RATE CALC 54 mL/min (>60); GLUCOSE,RANDOM 293 mg/dL (70-110); POTASSIUM 3.7 mmol/L (3.5-5.1); SODIUM SERUM 133 mmol/L (136-145); UREA NITROGEN, BLOOD 10 mg/dL (7-18)
[2023-04-26 07:30] LABS: ALCOHOL, BLOOD (SERUM) < 3 mg/dL (0-10)
[2023-04-26 07:31] LABS: ALANINE AMINOTRANSFERASE 31 U/L (12-78); ALBUMIN 3.8 g/dL (3.4-5.0); ALKALINE PHOSPHATASE 100 U/L (46-116); ASPARTATE AMINOTRANSFERASE 15 U/L (15-37); BILIRUBIN,TOTAL 0.3 mg/dL (0.1-1.0); LIPASE 71 U/L (16-77); TOTAL PROTEIN, SERUM 7.2 g/dL (6.4-8.2)
[2023-04-26] MEDS ORDERED: SODIUM CHLORIDE 0.9% 100 ML ONE (07:44)
[2023-04-26] MEDS ORDERED: IOHEXOL 350 MG/ML 100 ML VIAL ONE (07:44)
[2023-04-26 07:59] LABS: LACTIC ACID 5.5 mmol/L (0.4-2.0)
[2023-04-26 08:44] LABS: COVID AG,FIA SOURCE NASAL SWAB
[2023-04-26] MEDS ORDERED: HALOPERIDOL LACTATE 5 MG/ML VIAL IVP ONE (09:00)
[2023-04-26 09:41] LABS: SARS-COV2 (COVID) ANTIGEN,FIA Negative (Negative)
[2023-04-26] MEDS ORDERED: HydrOXYzine HCL 25 MG TABLET PO ONE ×2 (11:00→11:45)
[2023-04-26 11:35] LABS: ANION GAP 12 mmol/L (8-16); CALCIUM, TOTAL 7.9 mg/dL (8.8-10.5); CARBON DIOXIDE 22 mmol/L (22-29); CHLORIDE 103 mmol/L (98-107); CREATININE 1.15 mg/dL (0.60-1.30); GLOMERULAR FILTR. RATE CALC > 60 mL/min (>60); GLUCOSE,RANDOM 111 mg/dL (70-110); POTASSIUM 3.7 mmol/L (3.5-5.1); SODIUM SERUM 137 mmol/L (136-145); UREA NITROGEN, BLOOD 10 mg/dL (7-18)
[2023-04-26 11:37] LABS: APPEARANCE,URINE CLEAR (CLEAR); BILIRUBIN,URINE NEGATIVE (NEGATIVE); COLOR,URINE COLORLESS (YELLOW); GLUCOSE, URINE (UA) 300-500 mg/dL (NEGATIVE); KETONES,URINE NEGATIVE (NEGATIVE); LEUKOCYTE ESTERASE ,URINE NEGATIVE (NEGATIVE); NITRATE,URINE NEGATIVE (NEGATIVE); OCCULT BLOOD,URINE NEGATIVE (NEGATIVE); PROTEIN,URINE NEGATIVE (NEGATIVE); SPECIFIC GRAVITIY, URINE 1.021 (1.003-1.030); UROBILINOGEN,URINE <=1.0 mg/dL (<=1.0)
[2023-04-26 11:53] LABS: BACTERIA,URINE None Seen /HPF (None Seen); RBC,URINE None Seen /HPF (0-2); SQUAMOUS EPITHELIAL CELL,UR None Seen /LPF (None Seen); WBC,URINE None Seen /HPF (0-5)
[2023-04-26 11:55] LABS: ALCOHOL, URINE DRUG SCREEN NEGATIVE (NEGATIVE); AMPHET/METH SCREEN,URINE NEGATIVE (NEGATIVE); BARBITURATE SCREEN, URINE NEGATIVE (NEGATIVE); BENZODIAZEPINES SCREEN,URINE NEGATIVE (NEGATIVE); CANNABINOID SCREEN,URINE NEGATIVE (NEGATIVE); COCAINE SCREEN,URINE NEGATIVE (NEGATIVE); METHADONE SCREEN, URINE NEGATIVE (NEGATIVE); OPIATE SCREEN,URINE POSITIVE (NEGATIVE); PHENCYCLIDINE SCREEN,URINE NEGATIVE (NEGATIVE)
[2023-04-26 12:00] VITALS: BP 134/88; PULSE 80; RESP 18
== END 2023-04-26 12:35 | disposition home or self-care (01) ==
LOC: EMS 06:44
DX: R19.7 Diarrhea, unspecified (principal); R11.2 Nausea with vomiting, unspecified; R10.33 Periumbilical pain; F10.20 Alcohol dependence, uncomplicated; F41.9 Anxiety disorder, unspecified; F32.A Depression, unspecified; E11.9 Type 2 diabetes mellitus without complications; F20.9 Schizophrenia, unspecified; Z90.49 Acquired absence of other specified parts of digestive tract; Z87.891 Personal history of nicotine dependence; Z98.890 Other specified postprocedural states; Z20.822 Contact with and (suspected) exposure to COVID-19
CPT/HCPCS: 99285; 74177; 96361; 96374; 96375; 87426; 80053; 83605; 83690; 87045; 85025; 93005; 80307; 81001; 80048; 36415; J1200; J1630; J1885; J2765; J2270; Q9967; J7030; J7050; G0480

== ENCOUNTER 2023-05-24 05:41 | Emergency (ER) | payer MEDICARE, OTHER ==
[~2023-05-24] VITALS: Ht 180.3 cm; Wt 106.8 kg
[~2023-05-24 05:41] MED LIST changes: -CLON-592 PO; +DEXA4 PO; -HYDR-4584 PO; -LOSA-381 PO; -MIRT-149 PO; +MIRT-89 PO; +QUET25TA36 PO
[2023-05-24 05:56] VITALS: TEMP 99.3
[2023-05-24] MEDS: LORazepam 1 MG TABLET PO ONE (06:38)
[2023-05-24 07:09] VITALS: BP 125/81; PULSE 108; RESP 20
[2023-05-25] MEDS ORDERED: HYDR50CA7 PO (07:54)
== END 2023-05-24 07:36 | disposition home or self-care (01) ==
LOC: EMS 05:47
DX: F41.9 Anxiety disorder, unspecified (principal); F10.20 Alcohol dependence, uncomplicated; F32.A Depression, unspecified; E11.9 Type 2 diabetes mellitus without complications; E78.00 Pure hypercholesterolemia, unspecified; I10 Essential (primary) hypertension; F20.9 Schizophrenia, unspecified; Z87.891 Personal history of nicotine dependence; Z90.49 Acquired absence of other specified parts of digestive tract; Z98.890 Other specified postprocedural states
CPT/HCPCS: 99283

== ENCOUNTER 2023-05-24 20:59 | Emergency (ER) | payer MEDICARE, OTHER ==
[~2023-05-24] VITALS: Ht 177.8 cm; Wt 106.8 kg
[2023-05-24 21:40] LABS: BASOPHILS % (AUTO) 1.1 % (0.0-2.0); EOSINOPHILS % (AUTO) 1.4 % (1.0-6.0); HEMATOCRIT 38.5 % (41-53); HEMOGLOBIN 13.2 g/dL (13.5-17.5); LYMPHOCYTES # (AUTO) 1.6 K/uL (1.0-4.8); LYMPHOCYTES % (AUTO) 18.4 % (22.0-44.0); MEAN CORPUSCULAR HEMOGLOBIN 29.6 pg (26.0-34.0); MEAN CORPUSCULAR HGB CONC 34.2 G/dL (31.0-37.0); MEAN CORPUSCULAR VOLUME 86 fL (80-100); MONOCYTES # (AUTO) 0.8 K/uL (0.1-1.0); MONOCYTES % (AUTO) 8.6 % (2.0-9.0); NEUTROPHILS # (AUTO) 6.3 K/uL (1.8-7.7); NEUTROPHILS % (AUTO) 70.5 % (40.0-70.0); PLATELET COUNT (AUTO) 286 K/uL (150-450); RED BLOOD CELL COUNT(AUTO) 4.46 MIL/uL (4.50-5.90); RED CELL DISTRIBUTION WIDTH 12.1 % (11.5-14.5); WHITE BLOOD COUNT (AUTO) 8.9 K/uL (4.5-11.0)
[2023-05-24 21:52] LABS: ANION GAP 10 mmol/L (8-16); CALCIUM, TOTAL 8.4 mg/dL (8.8-10.5); CARBON DIOXIDE 23 mmol/L (22-29); CHLORIDE 98 mmol/L (98-107); CREATININE 1.08 mg/dL (0.60-1.30); GLOMERULAR FILTR. RATE CALC > 60 mL/min (>60); GLUCOSE,RANDOM 226 mg/dL (70-110); POTASSIUM 3.7 mmol/L (3.5-5.1); SODIUM SERUM 131 mmol/L (136-145); UREA NITROGEN, BLOOD 6 mg/dL (7-18)
[2023-05-24 21:55] LABS: ALANINE AMINOTRANSFERASE 40 U/L (12-78); ALBUMIN 3.4 g/dL (3.4-5.0); ALKALINE PHOSPHATASE 113 U/L (46-116); ASPARTATE AMINOTRANSFERASE 15 U/L (15-37); BILIRUBIN,TOTAL 0.3 mg/dL (0.1-1.0); TOTAL PROTEIN, SERUM 6.7 g/dL (6.4-8.2)
[2023-05-24 21:57] LABS: ALCOHOL, BLOOD (SERUM) < 3 mg/dL (0-10); TROPONIN I-HIGH SENSITIVITY 4 ng/L (<76)
[2023-05-24 22:51] VITALS: TEMP 98.2
[2023-05-24] MEDS ORDERED: MAG HYDROX/ALUMINUM HYD/SIMETH 30 ML SUSPENSION UDCUP PO ONE (23:15)
[2023-05-24] MEDS ORDERED: LORazepam 1 MG TABLET PO ONE (23:15)
[2023-05-24] MEDS ORDERED: FAMOTIDINE 20 MG TABLET PO ONE (23:15)
[2023-05-25] MEDS ORDERED: ONDANSETRON HCL 4 MG TABLET PO ONE (00:15)
[2023-05-25 00:45] VITALS: BP 122/84; PULSE 98; RESP 20
[2023-05-25 01:12] LABS: AMPHET/METH SCREEN,URINE NEGATIVE (NEGATIVE); BARBITURATE SCREEN, URINE NEGATIVE (NEGATIVE); BENZODIAZEPINES SCREEN,URINE NEGATIVE (NEGATIVE); CANNABINOID SCREEN,URINE NEGATIVE (NEGATIVE); COCAINE SCREEN,URINE NEGATIVE (NEGATIVE); METHADONE SCREEN, URINE NEGATIVE (NEGATIVE); OPIATE SCREEN,URINE NEGATIVE (NEGATIVE); PHENCYCLIDINE SCREEN,URINE NEGATIVE (NEGATIVE)
[2023-05-25 01:22] LABS: ALCOHOL, URINE DRUG SCREEN NEGATIVE (NEGATIVE)
[2023-05-25] MEDS ORDERED: HYDR50CA7 PO (07:54)
== END 2023-05-25 00:45 | disposition home or self-care (01) ==
LOC: EMS 21:00
DX: F41.9 Anxiety disorder, unspecified (principal); F10.20 Alcohol dependence, uncomplicated; F32.A Depression, unspecified; E11.9 Type 2 diabetes mellitus without complications; E78.00 Pure hypercholesterolemia, unspecified; I10 Essential (primary) hypertension; F20.9 Schizophrenia, unspecified; Z87.891 Personal history of nicotine dependence; Z90.49 Acquired absence of other specified parts of digestive tract; Z98.890 Other specified postprocedural states
CPT/HCPCS: 99284; 80053; 84484; 85025; 36415; 80307; G0480; Q0162

== ENCOUNTER 2023-05-25 06:07 | Emergency (ER) | payer MEDICARE, OTHER ==
[~2023-05-25] VITALS: Ht 177.8 cm; Wt 106.8 kg
[2023-05-25 06:23] VITALS: TEMP 100
[2023-05-25] MEDS ORDERED: LORazepam 1 MG TABLET PO ONE (07:45)
[2023-05-25] MEDS ORDERED: HYDR50CA7 PO (07:54)
[2023-05-25 08:09] VITALS: BP 116/82; PULSE 98; RESP 20
== END 2023-05-25 08:10 | disposition home or self-care (01) ==
LOC: EMS 06:31
DX: F41.9 Anxiety disorder, unspecified (principal); F10.20 Alcohol dependence, uncomplicated; F32.A Depression, unspecified; E11.9 Type 2 diabetes mellitus without complications; E78.00 Pure hypercholesterolemia, unspecified; I10 Essential (primary) hypertension; F20.9 Schizophrenia, unspecified; Z90.49 Acquired absence of other specified parts of digestive tract; Z87.891 Personal history of nicotine dependence; Z98.890 Other specified postprocedural states
CPT/HCPCS: 99283

== ENCOUNTER 2023-05-29 10:12 | Emergency (ER) | payer MEDICARE, OTHER ==
[~2023-05-29] VITALS: Ht 177.8 cm; Wt 106.8 kg
[~2023-05-29 10:12] MED LIST changes: +HYDR50CA7 PO
[2023-05-29 10:17] VITALS: TEMP 98.8
[2023-05-29] MEDS ORDERED: SODIUM CHLORIDE 0.9% 1,000 ML IV ONE ×2 (10:45→12:00)
[2023-05-29] MEDS ORDERED: AMPICILLIN SODIUM/SULBACTAM NA 3 GM in SODIUM CHLORIDE 0.9% 100 ML IV ONE (10:45)
[2023-05-29 11:05] LABS: BASOPHILS % (AUTO) 0.3 % (0.0-2.0); EOSINOPHILS % (AUTO) 0.3 % (1.0-6.0); HEMATOCRIT 35.5 % (41-53); HEMOGLOBIN 12.1 g/dL (13.5-17.5); LYMPHOCYTES # (AUTO) 1.3 K/uL (1.0-4.8); LYMPHOCYTES % (AUTO) 9.8 % (22.0-44.0); MEAN CORPUSCULAR HEMOGLOBIN 30.2 pg (26.0-34.0); MEAN CORPUSCULAR HGB CONC 34.1 G/dL (31.0-37.0); MEAN CORPUSCULAR VOLUME 89 fL (80-100); MONOCYTES % (AUTO) 7.7 % (2.0-9.0); NEUTROPHILS # (AUTO) 11.1 K/uL (1.8-7.7); NEUTROPHILS % (AUTO) 81.9 % (40.0-70.0); PLATELET COUNT (AUTO) 243 K/uL (150-450); RED CELL DISTRIBUTION WIDTH 12.4 % (11.5-14.5); WHITE BLOOD COUNT (AUTO) 13.5 K/uL (4.5-11.0)
[2023-05-29 11:25] LABS: CALCIUM, TOTAL 8.7 mg/dL (8.8-10.5); CREATININE 1.24 mg/dL (0.60-1.30); POTASSIUM 4.5 mmol/L (3.5-5.1)
[2023-05-29] MEDS ORDERED: INSULIN REGULAR, HUMAN 100 UNITS/ML IVP ONE (12:00)
[2023-05-29] MEDS ORDERED: AMOX1TAB16 PO (12:43)
[2023-05-29 13:18] VITALS: BP 138/84; PULSE 94; RESP 20
[2023-05-29 14:21] LABS: GLUCOMETER DEV NAME(LOC) ER.6; GLUCOSE,POINT OF CARE 219 MG/DL (70-110)
== END 2023-05-29 13:24 | disposition home or self-care (01) ==
LOC: EMS 10:16
DX: K13.0 Diseases of lips (principal); E11.65 Type 2 diabetes mellitus with hyperglycemia; F10.20 Alcohol dependence, uncomplicated; F41.9 Anxiety disorder, unspecified; F32.A Depression, unspecified; E78.00 Pure hypercholesterolemia, unspecified; I10 Essential (primary) hypertension; F20.9 Schizophrenia, unspecified; Z87.891 Personal history of nicotine dependence; Z90.49 Acquired absence of other specified parts of digestive tract; Z98.890 Other specified postprocedural states
CPT/HCPCS: 99284; 96365; 96375; 80048; 82962; 85025; 36415; J1815; J0295; J7050

== ENCOUNTER → 2023-05-30 | Emergency (ER) | payer MEDICARE, OTHER ==
[~2023-05-30] VITALS: Ht 177.8 cm; Wt 110.0 kg
[~2023-05-30] MED LIST changes: +AMOX1TAB16 PO; +IOHEXOL 350 MG/ML 100 ML VIAL ONE; -LOPE-232 PO; +SODIUM CHLORIDE 0.9% 100 ML ONE
[2023-05-30 04:54] VITALS: TEMP 99
[2023-05-30] MEDS: LORazepam 1 MG TABLET PO ONE (05:51)
[2023-05-30 05:54] LABS: BASOPHILS % (AUTO) 0.5 % (0.0-2.0); EOSINOPHILS % (AUTO) 1.6 % (1.0-6.0); HEMATOCRIT 36.1 % (41-53); HEMOGLOBIN 12.2 g/dL (13.5-17.5); LYMPHOCYTES # (AUTO) 1.8 K/uL (1.0-4.8); LYMPHOCYTES % (AUTO) 15.5 % (22.0-44.0); MEAN CORPUSCULAR HEMOGLOBIN 29.9 pg (26.0-34.0); MEAN CORPUSCULAR HGB CONC 33.8 G/dL (31.0-37.0); MEAN CORPUSCULAR VOLUME 88 fL (80-100); MONOCYTES # (AUTO) 0.8 K/uL (0.1-1.0); MONOCYTES % (AUTO) 6.5 % (2.0-9.0); NEUTROPHILS # (AUTO) 8.8 K/uL (1.8-7.7); NEUTROPHILS % (AUTO) 75.9 % (40.0-70.0); PLATELET COUNT (AUTO) 212 K/uL (150-450); RED BLOOD CELL COUNT(AUTO) 4.08 MIL/uL (4.50-5.90); RED CELL DISTRIBUTION WIDTH 12.5 % (11.5-14.5); WHITE BLOOD COUNT (AUTO) 11.6 K/uL (4.5-11.0)
[2023-05-30 06:16] LABS: ALANINE AMINOTRANSFERASE 30 U/L (12-78); ALBUMIN 3.1 g/dL (3.4-5.0); ALKALINE PHOSPHATASE 129 U/L (46-116); ANION GAP 9 mmol/L (8-16); ASPARTATE AMINOTRANSFERASE 10 U/L (15-37); BILIRUBIN,TOTAL 0.5 mg/dL (0.1-1.0); CALCIUM, TOTAL 8.8 mg/dL (8.8-10.5); CARBON DIOXIDE 24 mmol/L (22-29); CHLORIDE 99 mmol/L (98-107); CREATININE 1.06 mg/dL (0.60-1.30); GLOMERULAR FILTR. RATE CALC > 60 mL/min (>60); POTASSIUM 3.9 mmol/L (3.5-5.1); SODIUM SERUM 132 mmol/L (136-145); TOTAL PROTEIN, SERUM 6.9 g/dL (6.4-8.2); UREA NITROGEN, BLOOD 10 mg/dL (7-18)
[2023-05-30 06:19] LABS: GLUCOSE,RANDOM 407 mg/dL (70-110); LACTIC ACID 2.6 mmol/L (0.4-2.0)
[2023-05-30] MEDS: SODIUM CHLORIDE 0.9% 3,300 ML IV ONE (06:42)
[2023-05-30] MEDS: DiphenhydrAMINE HCL 50 MG/ML VIAL IVP ONE (06:54)
[2023-05-30] MEDS: KETOROLAC TROMETHAMINE 30 MG/ML VIAL IVP ONE (06:54)
[2023-05-30] MEDS: CEFTAROLINE 600 MG/D5W 250 ML IV ONE (06:55)
[2023-05-30 09:30] VITALS: BP 140/85; PULSE 70; RESP 12
[2023-05-30 09:45] LABS: GLUCOMETER DEV NAME(LOC) ER.6; GLUCOSE,POINT OF CARE 258 MG/DL (70-110)
== END | disposition still patient (30) ==
LOC: EMS 04:53 → UNDOADMIN 07:49 → AHU 07:49 → 6S 07:55
DX: K13.0 Diseases of lips (principal); E11.65 Type 2 diabetes mellitus with hyperglycemia; F10.20 Alcohol dependence, uncomplicated; F41.9 Anxiety disorder, unspecified; F32.A Depression, unspecified; E78.00 Pure hypercholesterolemia, unspecified; I10 Essential (primary) hypertension; F20.9 Schizophrenia, unspecified; Z87.891 Personal history of nicotine dependence; Z90.49 Acquired absence of other specified parts of digestive tract; Z98.890 Other specified postprocedural states
CPT/HCPCS: 99285; 96365; 70487; 96375; 80053; 82962; 83605; 85025; 87040; 36415; J0712; J1200; J1885; Q9967; J7050

== ENCOUNTER 2023-06-04 05:21 | Emergency (ER) | payer MEDICARE, OTHER ==
[~2023-06-04] VITALS: Ht 177.8 cm; Wt 116.0 kg
[~2023-06-04 05:21] MED LIST changes: -IOHEXOL 350 MG/ML 100 ML VIAL ONE; -SODIUM CHLORIDE 0.9% 100 ML ONE
[2023-06-04 05:30] VITALS: BP 146/78; PULSE 105; RESP 20; TEMP 98.7
[2023-06-04] MEDS ORDERED: LORazepam 2 MG TABLET PO ONE (06:15)
== END 2023-06-04 06:20 | disposition left against medical advice (07) ==
LOC: EMS 05:22
DX: F41.9 Anxiety disorder, unspecified (principal); F10.20 Alcohol dependence, uncomplicated; F32.A Depression, unspecified; E78.00 Pure hypercholesterolemia, unspecified; I10 Essential (primary) hypertension; F20.9 Schizophrenia, unspecified; E11.40 Type 2 diabetes mellitus with diabetic neuropathy, unspecified; Z90.49 Acquired absence of other specified parts of digestive tract; Z87.891 Personal history of nicotine dependence; Z98.890 Other specified postprocedural states
CPT/HCPCS: 82948; 99283

== ENCOUNTER 2023-08-03 01:32 | Emergency (ER) | payer MEDICARE, OTHER ==
[~2023-08-03] VITALS: Ht 182.9 cm; Wt 106.0 kg
[~2023-08-03 01:32] MED LIST changes: -ALOG25TA PO; -AMOX1TAB16 PO; -DEXA4 PO; +HYDR-4808 PO; -HYDR50CA7 PO; -MELA3TAB89 PO; +OMEP20 PO; -ONDA-104 PO; -PANT-31 PO; -PROC5TAB54 PO; +PROP10TA72 PO; -PYRI-9 PO; +QUET100T34 PO; -QUET25TA36 PO
[2023-08-03 01:34] VITALS: BP 156/90; PULSE 112; RESP 26; TEMP 97.5
[2023-08-03] MEDS ORDERED: LORazepam 2 MG/ML VIAL IM ONE (02:00)
[2023-08-03 02:28] LABS: BASOPHILS % (AUTO) 0.7 % (0.0-2.0); EOSINOPHILS % (AUTO) 1.5 % (1.0-6.0); HEMATOCRIT 39.3 % (41-53); HEMOGLOBIN 13.4 g/dL (13.5-17.5); LYMPHOCYTES # (AUTO) 1.6 K/uL (1.0-4.8); LYMPHOCYTES % (AUTO) 17.1 % (22.0-44.0); MEAN CORPUSCULAR HEMOGLOBIN 28.8 pg (26.0-34.0); MEAN CORPUSCULAR VOLUME 85 fL (80-100); MONOCYTES # (AUTO) 0.8 K/uL (0.1-1.0); MONOCYTES % (AUTO) 8.3 % (2.0-9.0); NEUTROPHILS # (AUTO) 6.6 K/uL (1.8-7.7); NEUTROPHILS % (AUTO) 72.4 % (40.0-70.0); PLATELET COUNT (AUTO) 234 K/uL (150-450); RED BLOOD CELL COUNT(AUTO) 4.63 MIL/uL (4.50-5.90); RED CELL DISTRIBUTION WIDTH 14.2 % (11.5-14.5); WHITE BLOOD COUNT (AUTO) 9.1 K/uL (4.5-11.0)
[2023-08-03 02:46] LABS: ANION GAP 16 mmol/L (8-16); CALCIUM, TOTAL 8.9 mg/dL (8.8-10.5); CARBON DIOXIDE 19 mmol/L (22-29); CHLORIDE 92 mmol/L (98-107); CREATININE 1.05 mg/dL (0.60-1.30); GLOMERULAR FILTR. RATE CALC > 60 mL/min (>60); GLUCOSE,RANDOM 233 mg/dL (70-110); POTASSIUM 3.9 mmol/L (3.5-5.1); SODIUM SERUM 127 mmol/L (136-145); UREA NITROGEN, BLOOD 10 mg/dL (7-18)
[2023-08-03 02:52] LABS: ALANINE AMINOTRANSFERASE 26 U/L (12-78); ALKALINE PHOSPHATASE 96 U/L (46-116); ASPARTATE AMINOTRANSFERASE 20 U/L (15-37); BILIRUBIN,TOTAL 0.3 mg/dL (0.1-1.0); TOTAL PROTEIN, SERUM 6.8 g/dL (6.4-8.2)
[2023-08-03 03:04] LABS: PH,URINE DRUG SCREEN 7.5 (5.0-8.0)
[2023-08-03 03:05] LABS: ALCOHOL, BLOOD (SERUM) < 3 mg/dL (0-10)
[2023-08-03 03:08] LABS: AMPHET/METH SCREEN,URINE NEGATIVE (NEGATIVE); BARBITURATE SCREEN, URINE NEGATIVE (NEGATIVE); BENZODIAZEPINES SCREEN,URINE NEGATIVE (NEGATIVE); CANNABINOID SCREEN,URINE NEGATIVE (NEGATIVE); COCAINE SCREEN,URINE NEGATIVE (NEGATIVE); METHADONE SCREEN, URINE NEGATIVE (NEGATIVE); OPIATE SCREEN,URINE NEGATIVE (NEGATIVE); PHENCYCLIDINE SCREEN,URINE NEGATIVE (NEGATIVE)
[2023-08-03 03:10] LABS: ALCOHOL, URINE DRUG SCREEN NEGATIVE (NEGATIVE)
== END 2023-08-03 03:00 | disposition home or self-care (01) ==
LOC: EMS 01:53
DX: F41.9 Anxiety disorder, unspecified (principal); E87.1 Hypo-osmolality and hyponatremia; E11.65 Type 2 diabetes mellitus with hyperglycemia; F10.20 Alcohol dependence, uncomplicated; F32.A Depression, unspecified; E11.9 Type 2 diabetes mellitus without complications; E78.00 Pure hypercholesterolemia, unspecified; I10 Essential (primary) hypertension; F20.9 Schizophrenia, unspecified; Z87.891 Personal history of nicotine dependence; Z90.49 Acquired absence of other specified parts of digestive tract; Z98.890 Other specified postprocedural states; Y90.9 Presence of alcohol in blood, level not specified
CPT/HCPCS: 99283; 80053; 85025; 36415; 96372; 80307; G0480; J2060

== ENCOUNTER 2023-08-08 03:42 | Emergency (ER) | payer MEDICARE, OTHER ==
[~2023-08-08] VITALS: Ht 177.8 cm; Wt 106.8 kg
[2023-08-08 03:43] VITALS: TEMP 98
[2023-08-08] MEDS ORDERED: LORazepam 2 MG TABLET PO ONE (04:30)
[2023-08-08 04:43] VITALS: BP 152/99; PULSE 100; RESP 20
== END 2023-08-08 04:56 | disposition home or self-care (01) ==
LOC: EMS 03:42
DX: F41.9 Anxiety disorder, unspecified (principal); F32.9 Major depressive disorder, single episode, unspecified; E11.65 Type 2 diabetes mellitus with hyperglycemia; F10.20 Alcohol dependence, uncomplicated; E78.00 Pure hypercholesterolemia, unspecified; I10 Essential (primary) hypertension; F20.9 Schizophrenia, unspecified; Z87.891 Personal history of nicotine dependence; Z90.49 Acquired absence of other specified parts of digestive tract; Z98.890 Other specified postprocedural states
CPT/HCPCS: 82962; 99283

== ENCOUNTER 2023-08-10 05:05 | Emergency (ER) | payer MEDICARE, OTHER ==
[~2023-08-10] VITALS: Ht 180.3 cm; Wt 104.5 kg
[2023-08-10 05:11] VITALS: TEMP 98.5
[2023-08-10 05:21] LABS: GLUCOMETER DEV NAME(LOC) ER.6; GLUCOSE,POINT OF CARE 193 MG/DL (70-110)
[2023-08-10 06:26] VITALS: BP 121/40; PULSE 114; RESP 28
[2023-08-10] MEDS ORDERED: LORazepam 2 MG/ML VIAL IM ONE (06:45)
== END 2023-08-10 07:14 | disposition home or self-care (01) ==
LOC: EMS 05:06
DX: F41.9 Anxiety disorder, unspecified (principal); F10.20 Alcohol dependence, uncomplicated; F32.A Depression, unspecified; E11.9 Type 2 diabetes mellitus without complications; E78.00 Pure hypercholesterolemia, unspecified; I10 Essential (primary) hypertension; F20.9 Schizophrenia, unspecified; Z87.891 Personal history of nicotine dependence; Z90.49 Acquired absence of other specified parts of digestive tract; Z98.890 Other specified postprocedural states
CPT/HCPCS: 99283; 82962; 96372; J2060

== ENCOUNTER 2023-08-18 02:57 | Emergency (ER) | payer MEDICARE, OTHER ==
[~2023-08-18] VITALS: Ht 180.3 cm; Wt 106.8 kg
[2023-08-18 03:09] VITALS: BP 140/93; PULSE 117; RESP 15; TEMP 98.4
[2023-08-18] MEDS: LORazepam 2 MG/ML VIAL IM ONE (04:10)
== END 2023-08-18 04:11 | disposition home or self-care (01) ==
LOC: EMS 03:11
DX: F41.9 Anxiety disorder, unspecified (principal); F10.20 Alcohol dependence, uncomplicated; F32.A Depression, unspecified; E78.00 Pure hypercholesterolemia, unspecified; I10 Essential (primary) hypertension; F20.9 Schizophrenia, unspecified; E11.40 Type 2 diabetes mellitus with diabetic neuropathy, unspecified; Z90.49 Acquired absence of other specified parts of digestive tract; Z98.890 Other specified postprocedural states; Z87.891 Personal history of nicotine dependence
CPT/HCPCS: 99283; 82962; 96372; J2060

== ENCOUNTER 2023-08-27 12:37 | Emergency (ER) | payer MEDICARE, OTHER ==
[~2023-08-27] VITALS: Ht 180.3 cm; Wt 106.8 kg
[2023-08-27 12:46] VITALS: TEMP 97.9
[2023-08-27 13:01] LABS: GLUCOMETER DEV NAME(LOC) ER.6; GLUCOSE,POINT OF CARE 212 MG/DL (70-110)
[2023-08-27] MEDS: LORazepam 1 MG TABLET PO ONE ×2 (13:14→14:42)
[2023-08-27 13:38] LABS: ANION GAP 15 mmol/L (8-16); CALCIUM, TOTAL 9.1 mg/dL (8.8-10.5); CARBON DIOXIDE 20 mmol/L (22-29); CHLORIDE 94 mmol/L (98-107); CREATININE 0.98 mg/dL (0.60-1.30); GLOMERULAR FILTR. RATE CALC > 60 mL/min (>60); GLUCOSE,RANDOM 163 mg/dL (70-110); POTASSIUM 3.9 mmol/L (3.5-5.1); SODIUM SERUM 129 mmol/L (136-145); UREA NITROGEN, BLOOD 6 mg/dL (7-18)
[2023-08-27 13:44] LABS: ALANINE AMINOTRANSFERASE 31 U/L (12-78); ALKALINE PHOSPHATASE 93 U/L (46-116); ASPARTATE AMINOTRANSFERASE 18 U/L (15-37); BILIRUBIN,TOTAL 0.4 mg/dL (0.1-1.0); TOTAL PROTEIN, SERUM 6.9 g/dL (6.4-8.2)
[2023-08-27 13:48] LABS: BASOPHILS % (AUTO) 0.3 % (0.0-2.0); HEMATOCRIT 38.1 % (41-53); HEMOGLOBIN 12.9 g/dL (13.5-17.5); LYMPHOCYTES % (AUTO) 11.6 % (22.0-44.0); MEAN CORPUSCULAR HEMOGLOBIN 28.8 pg (26.0-34.0); MEAN CORPUSCULAR VOLUME 85 fL (80-100); MONOCYTES % (AUTO) 12.2 % (2.0-9.0); NEUTROPHILS # (AUTO) 6.4 K/uL (1.8-7.7); NEUTROPHILS % (AUTO) 74.9 % (40.0-70.0); PLATELET COUNT (AUTO) 239 K/uL (150-450); RED BLOOD CELL COUNT(AUTO) 4.49 MIL/uL (4.50-5.90); RED CELL DISTRIBUTION WIDTH 14.6 % (11.5-14.5); WHITE BLOOD COUNT (AUTO) 8.5 K/uL (4.5-11.0)
[2023-08-27 13:59] LABS: ALCOHOL, URINE DRUG SCREEN NEGATIVE (NEGATIVE); AMPHET/METH SCREEN,URINE NEGATIVE (NEGATIVE); BARBITURATE SCREEN, URINE NEGATIVE (NEGATIVE); BENZODIAZEPINES SCREEN,URINE NEGATIVE (NEGATIVE); CANNABINOID SCREEN,URINE NEGATIVE (NEGATIVE); COCAINE SCREEN,URINE NEGATIVE (NEGATIVE); METHADONE SCREEN, URINE NEGATIVE (NEGATIVE); OPIATE SCREEN,URINE NEGATIVE (NEGATIVE); PHENCYCLIDINE SCREEN,URINE NEGATIVE (NEGATIVE)
[2023-08-27 14:02] LABS: ALCOHOL, BLOOD (SERUM) < 3 mg/dL (0-10)
[2023-08-27 14:09] LABS: COVID AG,FIA SOURCE NASAL SWAB
[2023-08-27 14:33] LABS: SARS-COV2 (COVID) ANTIGEN,FIA Positive (Negative)
[2023-08-27] MEDS: HALOPERIDOL 5 MG TABLET PO ONE (14:42)
[2023-08-27 14:59] VITALS: BP 146/79; PULSE 96; RESP 20
== END 2023-08-27 14:59 | disposition home or self-care (01) ==
LOC: EMS 12:37
DX: F41.9 Anxiety disorder, unspecified (principal); F10.20 Alcohol dependence, uncomplicated; F32.A Depression, unspecified; E11.9 Type 2 diabetes mellitus without complications; E78.00 Pure hypercholesterolemia, unspecified; I10 Essential (primary) hypertension; F20.9 Schizophrenia, unspecified; Z87.891 Personal history of nicotine dependence; Z90.49 Acquired absence of other specified parts of digestive tract; Z98.890 Other specified postprocedural states; Z20.822 Contact with and (suspected) exposure to COVID-19
CPT/HCPCS: 99284; 87426; 80053; 82962; 85025; 36415; 80307; G0480

== ENCOUNTER 2023-08-27 15:48 | Emergency (ER) | payer MEDICARE, OTHER | END 2023-08-27 15:55 | disposition left against medical advice (07) | LOC: EMS 15:55 | DX: Z53.21 Procedure and treatment not carried out due to patient leaving prior to being seen by health care provider (principal) ==

== ENCOUNTER 2023-08-31 06:35 | Emergency (ER) | payer MEDICARE, OTHER ==
[~2023-08-31] VITALS: Ht 180.3 cm; Wt 106.8 kg
[2023-08-31 06:38] VITALS: BP 154/66; PULSE 113; RESP 24; TEMP 98.1
[2023-08-31] MEDS: LORazepam 1 MG TABLET PO ONE (07:51)
== END 2023-08-31 08:35 | disposition home or self-care (01) ==
LOC: EMS 06:36
DX: F41.9 Anxiety disorder, unspecified (principal); E11.9 Type 2 diabetes mellitus without complications; F32.A Depression, unspecified; E78.00 Pure hypercholesterolemia, unspecified; K21.9 Gastro-esophageal reflux disease without esophagitis; I10 Essential (primary) hypertension; F20.9 Schizophrenia, unspecified; Z87.891 Personal history of nicotine dependence; Z90.49 Acquired absence of other specified parts of digestive tract
CPT/HCPCS: 99283

== ENCOUNTER 2023-09-05 13:35 | Emergency (ER) | payer MEDICARE, OTHER ==
[~2023-09-05] VITALS: Ht 180.3 cm; Wt 106.8 kg
[2023-09-05 13:58] VITALS: BP 104/51; PULSE 109; RESP 17; TEMP 97.3
[2023-09-05] MEDS: LORazepam 1 MG TABLET PO ONE (14:30)
== END 2023-09-05 14:40 | disposition home or self-care (01) ==
LOC: EMS 13:50
DX: F41.9 Anxiety disorder, unspecified (principal); E11.9 Type 2 diabetes mellitus without complications; E78.00 Pure hypercholesterolemia, unspecified; I10 Essential (primary) hypertension; F32.A Depression, unspecified; F20.9 Schizophrenia, unspecified; K21.9 Gastro-esophageal reflux disease without esophagitis; Z87.891 Personal history of nicotine dependence; Z90.49 Acquired absence of other specified parts of digestive tract
CPT/HCPCS: 82962; 99283

== ENCOUNTER 2023-09-08 14:13 | Emergency (ER) | payer MEDICARE, OTHER ==
[~2023-09-08] VITALS: Ht 180.3 cm; Wt 86.4 kg
[2023-09-08 14:29] VITALS: BP 123/78; PULSE 118; RESP 18; TEMP 98.5
[2023-09-08] MEDS ORDERED: RISP0.5T39 PO (14:29)
[2023-09-08] MEDS: LORazepam 1 MG TABLET PO ONE (14:57)
[2023-09-08] MEDS: HALOPERIDOL 5 MG TABLET PO ONE (14:57)
== END 2023-09-08 15:36 | disposition home or self-care (01) ==
LOC: EMS 14:15
DX: F41.9 Anxiety disorder, unspecified (principal); F10.20 Alcohol dependence, uncomplicated; F32.A Depression, unspecified; E78.00 Pure hypercholesterolemia, unspecified; I10 Essential (primary) hypertension; F20.9 Schizophrenia, unspecified; E11.40 Type 2 diabetes mellitus with diabetic neuropathy, unspecified; Z87.891 Personal history of nicotine dependence; Z90.49 Acquired absence of other specified parts of digestive tract; Z98.890 Other specified postprocedural states
CPT/HCPCS: 99283

== ENCOUNTER 2023-09-10 07:22 | Emergency (ER) | payer MEDICARE, OTHER ==
[~2023-09-10] VITALS: Ht 180.3 cm; Wt 106.8 kg
[~2023-09-10 07:22] MED LIST changes: -QUET100T34 PO; +RISP0.5T39 PO
[2023-09-10 07:46] VITALS: TEMP 98.7
[2023-09-10] MEDS: LORazepam 1 MG TABLET PO ONE (12:23)
[2023-09-10] MEDS: HALOPERIDOL 5 MG TABLET PO ONE (12:23)
[2023-09-10 12:30] VITALS: BP 130/97; PULSE 99; RESP 20
== END 2023-09-10 12:54 | disposition home or self-care (01) ==
LOC: EMS 07:22
DX: F41.9 Anxiety disorder, unspecified (principal); F10.20 Alcohol dependence, uncomplicated; F32.A Depression, unspecified; E11.9 Type 2 diabetes mellitus without complications; E78.00 Pure hypercholesterolemia, unspecified; I10 Essential (primary) hypertension; F20.9 Schizophrenia, unspecified; Z87.891 Personal history of nicotine dependence; Z90.49 Acquired absence of other specified parts of digestive tract; Z98.890 Other specified postprocedural states
CPT/HCPCS: 82962; 99283

== ENCOUNTER 2023-10-03 18:10 | Inpatient (IN) | payer MEDICARE, OTHER ==
[~2023-10-03] VITALS: Ht 180.3 cm; Wt 103.2 kg
[~2023-10-03 18:10] MED LIST changes: +DULO-114 PO; -DULO20CA71 PO; -METF-1185 PO; +METF-1211 PO; -MIRT-89 PO; -OMEP20 PO; +PROP20TA18 PO; -RISP0.5T39 PO; -TRAZ-257 PO; +TRAZ-283 PO
[2023-10-03 19:53] LABS: BASOPHILS % (AUTO) 0.2 % (0.0-2.0); EOSINOPHILS % (AUTO) 0.2 % (1.0-6.0); HEMATOCRIT 38.2 % (41-53); LYMPHOCYTES # (AUTO) 1.6 K/uL (1.0-4.8); LYMPHOCYTES % (AUTO) 8.6 % (22.0-44.0); MEAN CORPUSCULAR HEMOGLOBIN 28.9 pg (26.0-34.0); MEAN CORPUSCULAR HGB CONC 34.1 G/dL (31.0-37.0); MEAN CORPUSCULAR VOLUME 85 fL (80-100); MONOCYTES # (AUTO) 1.9 K/uL (0.1-1.0); MONOCYTES % (AUTO) 9.6 % (2.0-9.0); NEUTROPHILS # (AUTO) 15.6 K/uL (1.8-7.7); NEUTROPHILS % (AUTO) 81.4 % (40.0-70.0); PLATELET COUNT (AUTO) 318 K/uL (150-450); RED BLOOD CELL COUNT(AUTO) 4.51 MIL/uL (4.50-5.90); WHITE BLOOD COUNT (AUTO) 19.2 K/uL (4.5-11.0)
[2023-10-03 20:12] LABS: ALANINE AMINOTRANSFERASE 33 U/L (12-78); ALBUMIN 3.8 g/dL (3.4-5.0); ALKALINE PHOSPHATASE 93 U/L (46-116); ASPARTATE AMINOTRANSFERASE 24 U/L (15-37); BILIRUBIN,TOTAL 0.9 mg/dL (0.1-1.0); CALCIUM, TOTAL 8.4 mg/dL (8.8-10.5); CARBON DIOXIDE 21 mmol/L (22-29); CREATININE 1.08 mg/dL (0.60-1.30); GLOMERULAR FILTR. RATE CALC > 60 mL/min (>60); GLUCOSE,RANDOM 193 mg/dL (70-110); LIPASE 64 U/L (16-77); TOTAL PROTEIN, SERUM 6.9 g/dL (6.4-8.2); UREA NITROGEN, BLOOD 4 mg/dL (7-18)
[2023-10-03 20:14] LABS: TROPONIN I-HIGH SENSITIVITY 9 ng/L (<76)
[2023-10-03 20:21] LABS: APPEARANCE,URINE CLEAR (CLEAR); BILIRUBIN,URINE NEGATIVE (NEGATIVE); COLOR,URINE COLORLESS (YELLOW); GLUCOSE, URINE (UA) TRACE mg/dL (NEGATIVE); KETONES,URINE NEGATIVE (NEGATIVE); LEUKOCYTE ESTERASE ,URINE NEGATIVE (NEGATIVE); NITRATE,URINE NEGATIVE (NEGATIVE); OCCULT BLOOD,URINE NEGATIVE (NEGATIVE); PROTEIN,URINE NEGATIVE (NEGATIVE); SPECIFIC GRAVITIY, URINE 1.003 (1.003-1.030); UROBILINOGEN,URINE <=1.0 mg/dL (<=1.0)
[2023-10-03 20:23] LABS: ANION GAP 15 mmol/L (8-16); CHLORIDE 89 mmol/L (98-107); POTASSIUM 3.6 mmol/L (3.5-5.1); SODIUM SERUM 125 mmol/L (136-145)
[2023-10-03 20:43] LABS: BACTERIA,URINE None Seen /HPF (None Seen); RBC,URINE None Seen /HPF (0-2); WBC,URINE None Seen /HPF (0-5)
[2023-10-03] MEDS: LORazepam 2 MG/ML VIAL IVP ONE (21:46)
[2023-10-03] MEDS ORDERED: 0.9% SODIUM CHLORIDE 10 ML SYRINGE IVP PRN (22:00)
[2023-10-03] MEDS: SODIUM CHLORIDE 0.9% 3,350 ML IV ONE (22:16)
[2023-10-03] MEDS: CefTRIAXone 1 GM/DEXTROSE 50 ML IV ONE (22:37)
[2023-10-03 22:45] LABS: LACTATE DEHYDROGENASE 227 U/L (85-227)
[2023-10-03 22:55] LABS: LACTIC ACID 4.8 mmol/L (0.4-2.0)
[2023-10-03 23:39] VITALS: BP 123/83; PULSE 97; RESP 18; TEMP 98.2; O2SAT 98
[2023-10-03] MEDS ORDERED: DEXTROSE 50%-WATER 25 GM/50 ML SYRINGE IVP PRN (23:45)
[2023-10-03] MEDS ORDERED: LORazepam 2 MG TABLET PO PRN (23:45)
[2023-10-04] VITALS (7 sets, daily range): BP systolic 109–137; BP diastolic 60–92; PULSE 81–102; RESP 18–20; TEMP 98–99; O2SAT 97
[2023-10-04] MEDS: MAGNESIUM SULFATE 2 GM, MVI, ADULT NO.1 WITH VIT K 10 ML, THIAMINE 100 MG, FOLIC ACID 1... IV SCH (01:18)
[2023-10-04] MEDS: INSULIN LISPRO 100 UNITS/ML SQ PRN (05:49)
[2023-10-04 08:09] LABS: PH,URINE DRUG SCREEN 7.5 (5.0-8.0)
[2023-10-04 08:17] LABS: ALCOHOL, URINE DRUG SCREEN NEGATIVE (NEGATIVE); AMPHET/METH SCREEN,URINE NEGATIVE (NEGATIVE); BARBITURATE SCREEN, URINE NEGATIVE (NEGATIVE); BENZODIAZEPINES SCREEN,URINE NEGATIVE (NEGATIVE); CANNABINOID SCREEN,URINE NEGATIVE (NEGATIVE); COCAINE SCREEN,URINE NEGATIVE (NEGATIVE); METHADONE SCREEN, URINE NEGATIVE (NEGATIVE); OPIATE SCREEN,URINE NEGATIVE (NEGATIVE); PHENCYCLIDINE SCREEN,URINE NEGATIVE (NEGATIVE)
[2023-10-04] MEDS: LORazepam 2 MG TABLET PO SCH (09:01)
[2023-10-04] MEDS: DULoxetine HCL 30 MG CAPSULE PO SCH (09:02)
[2023-10-04] MEDS: PROPRANOLOL HCL 20 MG TABLET PO SCH (09:03)
[2023-10-04] MEDS: HydrOXYzine PAMOATE 25 MG CAPSULE PO SCH (09:12)
[2023-10-04] MEDS: GABAPENTIN 400 MG CAPSULE PO SCH (09:14)
[2023-10-04 10:06] LABS: GLUCOMETER DEV NAME(LOC) 5S.1B; GLUCOSE,POINT OF CARE 185 MG/DL (70-110)
[2023-10-04 10:06] LABS: GLUCOMETER DEV NAME(LOC) 5S.1B; GLUCOSE,POINT OF CARE 199 MG/DL (70-110)
[2023-10-04] MEDS ORDERED: IOHEXOL 350 MG/ML 100 ML VIAL ONE (10:14)
[2023-10-04] MEDS ORDERED: SODIUM CHLORIDE 0.9% 100 ML ONE (10:14)
[2023-10-04 12:55] LABS: GLUCOMETER DEV NAME(LOC) 5N.2C; GLUCOSE,POINT OF CARE 162 MG/DL (70-110)
[2023-10-04] MEDS: TraZODone HCL 150 MG TABLET PO SCH (20:57)
[2023-10-04] MEDS: INSULIN GLARGINE,HUM.REC.ANLOG 100 UNITS/ML SQ SCH (21:06)
[2023-10-05 00:35] VITALS: BP 120/86; PULSE 84; RESP 19; TEMP 98.3
[2023-10-05 05:38] VITALS: BP 117/67; PULSE 89; RESP 20; TEMP 98
[2023-10-05 07:10] LABS: GLUCOMETER DEV NAME(LOC) 5N.1D; GLUCOSE,POINT OF CARE 188 MG/DL (70-110)
[2023-10-05 07:11] LABS: GLUCOMETER DEV NAME(LOC) 5N.1D; GLUCOSE,POINT OF CARE 161 MG/DL (70-110)
[2023-10-05 08:00] VITALS: BP 121/84; PULSE 94; RESP 20; TEMP 97.7
[2023-10-05] MEDS: LORazepam 2 MG TABLET PO PRN (10:23)
[2023-10-05 11:33] LABS: BASOPHILS % (AUTO) 0.3 % (0.0-2.0); EOSINOPHILS % (AUTO) 2.9 % (1.0-6.0); HEMATOCRIT 39.2 % (41-53); HEMOGLOBIN 13.2 g/dL (13.5-17.5); LYMPHOCYTES # (AUTO) 1.3 K/uL (1.0-4.8); LYMPHOCYTES % (AUTO) 10.9 % (22.0-44.0); MEAN CORPUSCULAR HEMOGLOBIN 29.2 pg (26.0-34.0); MEAN CORPUSCULAR HGB CONC 33.6 G/dL (31.0-37.0); MEAN CORPUSCULAR VOLUME 87 fL (80-100); MONOCYTES # (AUTO) 0.9 K/uL (0.1-1.0); MONOCYTES % (AUTO) 7.8 % (2.0-9.0); NEUTROPHILS # (AUTO) 9.5 K/uL (1.8-7.7); NEUTROPHILS % (AUTO) 78.1 % (40.0-70.0); PLATELET COUNT (AUTO) 279 K/uL (150-450); RED BLOOD CELL COUNT(AUTO) 4.52 MIL/uL (4.50-5.90); RED CELL DISTRIBUTION WIDTH 14.5 % (11.5-14.5); WHITE BLOOD COUNT (AUTO) 12.1 K/uL (4.5-11.0)
[2023-10-05 12:34] LABS: ANION GAP 16 mmol/L (8-16); CALCIUM, TOTAL 8.8 mg/dL (8.8-10.5); CARBON DIOXIDE 19 mmol/L (22-29); CHLORIDE 99 mmol/L (98-107); CREATININE 0.97 mg/dL (0.60-1.30); GLOMERULAR FILTR. RATE CALC > 60 mL/min (>60); GLUCOSE,RANDOM 152 mg/dL (70-110); POTASSIUM 4.1 mmol/L (3.5-5.1); SODIUM SERUM 134 mmol/L (136-145); UREA NITROGEN, BLOOD 9 mg/dL (7-18)
[2023-10-05] MEDS: ACETAMINOPHEN 325 MG TABLET PO PRN (14:33)
[2023-10-05 15:39] VITALS: BP 142/72; PULSE 96; RESP 22; TEMP 98.5
[2023-10-05 17:30] LABS: GLUCOMETER DEV NAME(LOC) 5N.1D; GLUCOSE,POINT OF CARE 145 MG/DL (70-110)
[2023-10-05 19:41] VITALS: BP 130/94; PULSE 93; RESP 22; TEMP 97.6
[2023-10-05 21:40] LABS: GLUCOMETER DEV NAME(LOC) 5S.1B; GLUCOSE,POINT OF CARE 122 MG/DL (70-110)
[2023-10-05 21:41] LABS: GLUCOMETER DEV NAME(LOC) 5S.1B; GLUCOSE,POINT OF CARE 177 MG/DL (70-110)
[2023-10-05 22:11] LABS: GLUCOMETER DEV NAME(LOC) 5N.1D; GLUCOSE,POINT OF CARE 124 MG/DL (70-110)
[2023-10-06 01:41] VITALS: BP 110/80; PULSE 73; RESP 20; TEMP 97.7
[2023-10-06 04:41] VITALS: BP 122/83; PULSE 90; RESP 20; TEMP 98.1
[2023-10-06 06:51] LABS: GLUCOMETER DEV NAME(LOC) 5N.1D; GLUCOSE,POINT OF CARE 160 MG/DL (70-110)
[2023-10-06 09:28] VITALS: BP 141/78; PULSE 103; RESP 22; TEMP 98
[2023-10-06 11:02] VITALS: BP 132/82; PULSE 102; RESP 24; TEMP 98.4
[2023-10-06] MEDS: LORazepam 1 MG TABLET PO SCH (11:32)
[2023-10-06] MEDS: LORazepam 1 MG TABLET PO PRN (11:34)
[2023-10-06 15:49] VITALS: BP 128/75; PULSE 99; RESP 20; TEMP 97.5
[2023-10-06] MEDS: HALOPERIDOL LACTATE 5 MG/ML VIAL IM ONE (21:43)
[2023-10-06 21:50] VITALS: BP 117/63; PULSE 72; RESP 22; TEMP 98.4
[2023-10-06 21:55] LABS: GLUCOMETER DEV NAME(LOC) 5N.1D; GLUCOSE,POINT OF CARE 142 MG/DL (70-110)
[2023-10-06 21:55] LABS: GLUCOMETER DEV NAME(LOC) 5N.1D; GLUCOSE,POINT OF CARE 154 MG/DL (70-110)
[2023-10-06 21:56] LABS: GLUCOMETER DEV NAME(LOC) 5N.1D; GLUCOSE,POINT OF CARE 131 MG/DL (70-110)
[2023-10-07 03:47] VITALS: BP 105/70; PULSE 81; RESP 20; TEMP 98.7
[2023-10-07 08:10] VITALS: BP 145/103; PULSE 102; RESP 20; TEMP 97.8
[2023-10-07] MEDS: LORazepam 1 MG TABLET PO PRN (08:46)
[2023-10-07] MEDS: ChlordiazePOXIDE HCL 10 MG CAPSULE PO PRN (10:15)
[2023-10-07] MEDS: LORazepam 2 MG/ML VIAL IVP PRN (12:47)
[2023-10-07 13:20] VITALS: BP 136/66; PULSE 107; RESP 20; TEMP 99.8
[2023-10-07] MEDS: LORazepam 2 MG TABLET PO ONE (13:27)
[2023-10-07] MEDS: ChlordiazePOXIDE HCL 25 MG CAPSULE PO SCH (15:34)
[2023-10-07 15:42] VITALS: BP 140/86; PULSE 113; RESP 22; TEMP 97.7
[2023-10-07 19:18] VITALS: BP 130/70; PULSE 95; RESP 20; TEMP 97.7
[2023-10-07 23:06] VITALS: BP 109/74; PULSE 80; RESP 20; TEMP 98.5
[2023-10-08 03:06] VITALS: BP 102/57; PULSE 79; RESP 18; TEMP 97.7
[2023-10-08 04:11] LABS: GLUCOMETER DEV NAME(LOC) 5N.2C; GLUCOSE,POINT OF CARE 260 MG/DL (70-110)
[2023-10-08 05:21] LABS: GLUCOMETER DEV NAME(LOC) 5N.1D; GLUCOSE,POINT OF CARE 84 MG/DL (70-110)
[2023-10-08 05:21] LABS: GLUCOMETER DEV NAME(LOC) 5N.1D; GLUCOSE,POINT OF CARE 207 MG/DL (70-110)
[2023-10-08 06:38] LABS: BASOPHILS % (AUTO) 0.5 % (0.0-2.0); EOSINOPHILS % (AUTO) 3.6 % (1.0-6.0); HEMATOCRIT 34.1 % (41-53); LYMPHOCYTES # (AUTO) 1.3 K/uL (1.0-4.8); LYMPHOCYTES % (AUTO) 23.3 % (22.0-44.0); MEAN CORPUSCULAR HEMOGLOBIN 29.6 pg (26.0-34.0); MEAN CORPUSCULAR HGB CONC 34.9 G/dL (31.0-37.0); MEAN CORPUSCULAR VOLUME 85 fL (80-100); MONOCYTES # (AUTO) 0.7 K/uL (0.1-1.0); MONOCYTES % (AUTO) 13.1 % (2.0-9.0); NEUTROPHILS # (AUTO) 3.4 K/uL (1.8-7.7); NEUTROPHILS % (AUTO) 59.5 % (40.0-70.0); PLATELET COUNT (AUTO) 267 K/uL (150-450); RED BLOOD CELL COUNT(AUTO) 4.03 MIL/uL (4.50-5.90); RED CELL DISTRIBUTION WIDTH 13.9 % (11.5-14.5); WHITE BLOOD COUNT (AUTO) 5.7 K/uL (4.5-11.0)
[2023-10-08 06:50] LABS: HEMOGLOBIN 11.9 g/dL (13.5-17.5)
[2023-10-08 07:15] LABS: GLUCOMETER DEV NAME(LOC) 5N.2C; GLUCOSE,POINT OF CARE 190 MG/DL (70-110)
[2023-10-08 07:22] LABS: ALANINE AMINOTRANSFERASE 44 U/L (12-78); ALBUMIN 3.1 g/dL (3.4-5.0); ALKALINE PHOSPHATASE 76 U/L (46-116); ANION GAP 9 mmol/L (8-16); ASPARTATE AMINOTRANSFERASE 27 U/L (15-37); BILIRUBIN,TOTAL 0.6 mg/dL (0.1-1.0); CALCIUM, TOTAL 8.2 mg/dL (8.8-10.5); CARBON DIOXIDE 26 mmol/L (22-29); CHLORIDE 104 mmol/L (98-107); GLOMERULAR FILTR. RATE CALC > 60 mL/min (>60); GLUCOSE,RANDOM 172 mg/dL (70-110); POTASSIUM 3.7 mmol/L (3.5-5.1); SODIUM SERUM 139 mmol/L (136-145); TOTAL PROTEIN, SERUM 6.1 g/dL (6.4-8.2); UREA NITROGEN, BLOOD 7 mg/dL (7-18)
[2023-10-08 08:34] VITALS: BP 159/102; PULSE 101; RESP 20; TEMP 98.3
[2023-10-08 12:04] VITALS: BP 146/82; PULSE 88; RESP 20; TEMP 98
[2023-10-08] MEDS: LORazepam 2 MG TABLET PO SCH (12:24)
[2023-10-08] MEDS: LORazepam 2 MG TABLET PO PRN (13:03)
[2023-10-08 16:04] VITALS: BP 160/102; PULSE 121; RESP 20; TEMP 98.3
[2023-10-08] MEDS: ChlordiazePOXIDE HCL 25 MG CAPSULE PO SCH (16:25)
[2023-10-08 19:13] VITALS: BP 136/90; PULSE 82; RESP 20; TEMP 97.4
[2023-10-08 22:21] LABS: GLUCOMETER DEV NAME(LOC) 5S.1B; GLUCOSE,POINT OF CARE 140 MG/DL (70-110)
[2023-10-08 23:07] VITALS: BP 113/75; PULSE 73; RESP 20; TEMP 97.5
[2023-10-09 04:38] VITALS: BP 119/73; PULSE 84; RESP 20; TEMP 97.8
[2023-10-09 06:15] LABS: GLUCOMETER DEV NAME(LOC) 5N.1D; GLUCOSE,POINT OF CARE 218 MG/DL (70-110)
[2023-10-09 06:15] LABS: GLUCOMETER DEV NAME(LOC) 5N.1D; GLUCOSE,POINT OF CARE 251 MG/DL (70-110)
[2023-10-09 06:16] LABS: GLUCOMETER DEV NAME(LOC) 5N.1D; GLUCOSE,POINT OF CARE 138 MG/DL (70-110)
[2023-10-09 08:08] VITALS: BP 136/95; PULSE 95; RESP 20; TEMP 97.3
[2023-10-09 16:02] VITALS: BP 152/83; PULSE 104; RESP 20; TEMP 98
[2023-10-09 16:51] LABS: COVID AG,FIA SOURCE NASAL SWAB
[2023-10-09 17:09] LABS: SARS-COV2 (COVID) ANTIGEN,FIA Negative (Negative)
[2023-10-09 19:10] VITALS: BP 145/78; PULSE 104; RESP 20; TEMP 97.6
[2023-10-09 20:26] LABS: GLUCOMETER DEV NAME(LOC) 5S.2C; GLUCOSE,POINT OF CARE 166 MG/DL (70-110)
[2023-10-09 20:50] LABS: GLUCOMETER DEV NAME(LOC) 5S.1B; GLUCOSE,POINT OF CARE 137 MG/DL (70-110)
[2023-10-10 05:01] LABS: GLUCOMETER DEV NAME(LOC) 5N.2C; GLUCOSE,POINT OF CARE 193 MG/DL (70-110)
== END 2023-10-09 22:31 | DRG 871 ==
LOC: EMS 18:10 → 5S 21:39
PROVIDERS: ADMIT Internal Medicine; ATTEND Internal Medicine
DX: A41.9 Sepsis, unspecified organism (principal); G92.8 Other toxic encephalopathy; E87.1 Hypo-osmolality and hyponatremia; F33.2 Major depressive disorder, recurrent severe without psychotic features; F10.939 Alcohol use, unspecified with withdrawal, unspecified; E11.40 Type 2 diabetes mellitus with diabetic neuropathy, unspecified; Z20.822 Contact with and (suspected) exposure to COVID-19; F41.0 Panic disorder [episodic paroxysmal anxiety]; Y90.9 Presence of alcohol in blood, level not specified; K21.9 Gastro-esophageal reflux disease without esophagitis; I10 Essential (primary) hypertension; D18.03 Hemangioma of intra-abdominal structures; E66.01 Morbid (severe) obesity due to excess calories; E78.00 Pure hypercholesterolemia, unspecified; F20.9 Schizophrenia, unspecified; Z79.84 Long term (current) use of oral hypoglycemic drugs; Z83.3 Family history of diabetes mellitus; Z87.891 Personal history of nicotine dependence; Z90.49 Acquired absence of other specified parts of digestive tract; Z91.51 Personal history of suicidal behavior; Z79.899 Other long term (current) drug therapy; Z68.31 Body mass index [BMI] 31.0-31.9, adult; Z98.1 Arthrodesis status
CPT/HCPCS: 70450; 71045; 71260; 72193; 74160; 74176; 80048; 80053; 80307; 81001; 82140; 82962; 83605; 83615; 83690; 83930; 83935; 84145; 84300; 84484; 85025; 85730; 87040; 93005; 99291; G0378; J0696; J1630; J1815; J2060; J3411; J3475; J3490; J7030; J7050; Q9967; 36415-L1; 36415-TC

== ENCOUNTER 2023-10-09 17:50 | Inpatient (IN) | payer MEDICARE, MEDICAID ==
[~2023-10-09 17:50] MED LIST changes: -PROP20TA18 PO
[2023-10-09] MEDS ORDERED: GuaiFENesin/D-METHORPHAN [SUGAR-FREE] 200-20MG/10 ML SYRUP UDCUP PO PRN (18:45)
[2023-10-09] MEDS ORDERED: LORazepam 2 MG TABLET PO PRN (18:45)
[2023-10-09] MEDS ORDERED: MAGNESIUM HYDROXIDE SUSPENSION 30 ML UDCUP PO PRN (18:45)
[2023-10-09] MEDS ORDERED: ZOLPIDEM TARTRATE 10 MG TABLET PO PRN (18:45)
[2023-10-09] MEDS ORDERED: TUBERCULIN, PURIFIED PROTEIN DERIVATIVE 5 TU/0.1 ML SYRINGE ID ONE (18:45)
[2023-10-09] MEDS ORDERED: LOPERAMIDE HCL 2 MG CAPSULE PO PRN (18:45)
[2023-10-09] MEDS: GABAPENTIN 400 MG CAPSULE PO SCH (21:00)
[2023-10-09 22:45] VITALS: BP 127/75; PULSE 87; RESP 18; TEMP 98.2; O2SAT 94
[2023-10-09 23:45] VITALS: BP 140/103; PULSE 95; RESP 18; TEMP 97.8; O2SAT 95
[2023-10-10 00:45] VITALS: BP 131/87; PULSE 99; RESP 18; TEMP 97.3; O2SAT 97
[2023-10-10 00:52] VITALS: BP 127/75; PULSE 87; RESP 17; TEMP 98.2; O2SAT 94
[2023-10-10 01:26] VITALS: BP 127/75; PULSE 87; RESP 17; TEMP 98.2; O2SAT 94
[2023-10-10 02:45] VITALS: BP 135/89; PULSE 88; RESP 18; TEMP 97.8; O2SAT 95
[2023-10-10] MEDS ORDERED: LORazepam 2 MG TABLET PO PRN (07:00)
[2023-10-10 08:30] VITALS: BP 144/78; PULSE 108; RESP 20; TEMP 97.9; O2SAT 96
[2023-10-10] MEDS: PROPRANOLOL HCL 20 MG TABLET PO SCH ×2 (08:33→17:00)
[2023-10-10] MEDS: MULTIVITAMINS WITH MINERALS, THERAPEUTIC TABLET PO SCH (08:33)
[2023-10-10] MEDS: OMEGA-3/DHA/EPA/FISH OIL 1,000 MG CAPSULE PO SCH (08:34)
[2023-10-10] MEDS: DULoxetine HCL 30 MG CAPSULE PO SCH (08:34)
[2023-10-10] MEDS: FOLIC ACID 1 MG TABLET PO SCH (08:35)
[2023-10-10] MEDS: THIAMINE 100 MG TABLET PO SCH (08:35)
[2023-10-10] MEDS: NALTREXONE HCL 50 MG TABLET PO SCH (08:36)
[2023-10-10] MEDS: LORazepam 2 MG TABLET PO PRN (08:39)
[2023-10-10 08:41] LABS: HEMOGLOBIN A1C 6.9 % (3.8-5.6)
[2023-10-10 08:49] LABS: CHOL/HDL RATIO 4.3 (4.2-7.3); FREE T4 (FREE THYROXINE) 1.4 ng/dL (0.76-1.46); THYROID STIMULATING HORMONE 0.44 uIU/mL (0.36-3.74)
[2023-10-10] MEDS: OLANZapine 5 MG RAPDIS TABLET PO PRN (09:25)
[2023-10-10 16:31] LABS: GLUCOMETER DEV NAME(LOC) 3EX.2; GLUCOSE,POINT OF CARE 166 MG/DL (70-110)
[2023-10-10] MEDS: MetFORMIN HCL 500 MG TABLET PO SCH (17:28)
[2023-10-10] MEDS: INSULIN LISPRO 100 UNITS/ML SQ PRN (17:49)
[2023-10-10] MEDS: TraZODone HCL 150 MG TABLET PO SCH (21:24)
[2023-10-10] MEDS: OLANZapine 5 MG RAPDIS TABLET PO SCH (21:25)
[2023-10-10 22:44] VITALS: RESP 18
[2023-10-11] VITALS (11 sets, daily range): BP systolic 124–145; BP diastolic 48–92; PULSE 92–110; RESP 18–19; TEMP 97.5–98.3; O2SAT 97–99
[2023-10-11 06:01] LABS: GLUCOMETER DEV NAME(LOC) 3E.I 2; GLUCOSE,POINT OF CARE 180 MG/DL (70-110)
[2023-10-11 16:46] LABS: GLUCOMETER DEV NAME(LOC) 3E.I 2; GLUCOSE,POINT OF CARE 227 MG/DL (70-110)
[2023-10-11] MEDS ORDERED: CYANOCOBALAMIN 1,000 MCG/ML VIAL ONE (20:45)
[2023-10-11] MEDS: CYANOCOBALAMIN 1,000 MCG/ML VIAL IM ONE (20:47)
[2023-10-12 05:46] LABS: GLUCOMETER DEV NAME(LOC) 3E.I 2; GLUCOSE,POINT OF CARE 201 MG/DL (70-110)
[2023-10-12] MEDS ORDERED: LORazepam 1 MG TABLET PO PRN (07:00)
[2023-10-12] MEDS: LORazepam 1 MG TABLET PO SCH (09:22)
[2023-10-12 10:10] VITALS: BP 162/95; PULSE 96; RESP 16; TEMP 96.8; O2SAT 100
[2023-10-12 12:15] VITALS: BP 150/95; PULSE 96; RESP 18
[2023-10-12 13:36] VITALS: BP 150/95; PULSE 96; RESP 18; TEMP 98; O2SAT 99
[2023-10-12 16:36] LABS: GLUCOMETER DEV NAME(LOC) 3E.I 2; GLUCOSE,POINT OF CARE 227 MG/DL (70-110)
[2023-10-12 17:23] VITALS: BP 113/87; PULSE 92; RESP 18; O2SAT 95
[2023-10-12 20:05] VITALS: BP 119/75; PULSE 88; RESP 18; TEMP 97.8; O2SAT 93
[2023-10-12 21:35] LABS: GLUCOMETER DEV NAME(LOC) 3E.I 2; GLUCOSE,POINT OF CARE 220 MG/DL (70-110)
[2023-10-12] MEDS: HydrOXYzine PAMOATE 50 MG CAPSULE PO PRN (22:45)
[2023-10-12 22:59] VITALS: BP 119/75; PULSE 88; RESP 18; TEMP 98.7; O2SAT 94
[2023-10-13] VITALS (7 sets, daily range): BP systolic 108–128; BP diastolic 72–97; PULSE 70–92; RESP 18; TEMP 97.1–97.4; O2SAT 95–98
[2023-10-13 05:41] LABS: GLUCOMETER DEV NAME(LOC) 3E.I 2; GLUCOSE,POINT OF CARE 223 MG/DL (70-110)
[2023-10-13] MEDS ORDERED: LORazepam 1 MG TABLET PO PRN (07:00)
[2023-10-13] MEDS: MENTHOL/ZINC OXIDE 113 GM OINTMENT TP SCH (10:06)
[2023-10-13 16:40] LABS: GLUCOMETER DEV NAME(LOC) 3EX.2; GLUCOSE,POINT OF CARE 210 MG/DL (70-110)
[2023-10-13] MEDS: ACETAMINOPHEN 325 MG TABLET PO PRN (21:31)
[2023-10-14 07:10] LABS: GLUCOMETER DEV NAME(LOC) 3E.I 2; GLUCOSE,POINT OF CARE 204 MG/DL (70-110)
[2023-10-14 08:51] VITALS: BP 135/82; PULSE 98; RESP 20; TEMP 98
[2023-10-14 10:44] VITALS: BP 135/82; PULSE 98; RESP 18; TEMP 98; O2SAT 98
[2023-10-14 16:11] LABS: GLUCOMETER DEV NAME(LOC) 3EX.2; GLUCOSE,POINT OF CARE 242 MG/DL (70-110)
[2023-10-14 16:20] VITALS: BP 112/76; RESP 18
[2023-10-14 21:49] VITALS: BP 125/72; PULSE 91; RESP 18; TEMP 98.1
[2023-10-14 22:05] VITALS: RESP 18
[2023-10-15 05:31] LABS: GLUCOMETER DEV NAME(LOC) 3E.I 2; GLUCOSE,POINT OF CARE 247 MG/DL (70-110)
[2023-10-15] MEDS: DULoxetine HCL 60 MG CAPSULE PO SCH (09:37)
[2023-10-15 09:51] VITALS: BP 136/83; PULSE 96; RESP 20; TEMP 96.8; O2SAT 95
[2023-10-15 17:31] LABS: GLUCOMETER DEV NAME(LOC) 3E.I 2; GLUCOSE,POINT OF CARE 262 MG/DL (70-110)
[2023-10-15] MEDS: GABAPENTIN 100 MG CAPSULE PO SCH (18:03)
[2023-10-15 21:48] VITALS: BP 104/74; PULSE 76; RESP 18; TEMP 97.2; O2SAT 98
[2023-10-15 22:20] VITALS: BP 110/80; PULSE 83; RESP 18; TEMP 97.2; O2SAT 97
[2023-10-16 05:25] LABS: GLUCOMETER DEV NAME(LOC) 3E.I 2; GLUCOSE,POINT OF CARE 185 MG/DL (70-110)
[2023-10-16 09:06] VITALS: BP 112/78; PULSE 79; RESP 18; TEMP 97; O2SAT 97
[2023-10-16 12:50] VITALS: BP 116/72; PULSE 85; RESP 18; TEMP 97.4
[2023-10-16 13:50] VITALS: BP 122/76; PULSE 82; RESP 18; TEMP 97.6
[2023-10-16 15:41] LABS: GLUCOMETER DEV NAME(LOC) 3EX.2; GLUCOSE,POINT OF CARE 275 MG/DL (70-110)
[2023-10-16 15:42] VITALS: BP 116/82; PULSE 89; RESP 18
[2023-10-16 22:08] VITALS: BP 112/75; PULSE 79; RESP 18; TEMP 97; O2SAT 97
[2023-10-17 05:31] LABS: GLUCOMETER DEV NAME(LOC) 3E.I 2; GLUCOSE,POINT OF CARE 206 MG/DL (70-110)
[2023-10-17 08:33] VITALS: BP 112/83; PULSE 97; RESP 16; TEMP 97.3; O2SAT 96
[2023-10-17] MEDS: GABAPENTIN 400 MG CAPSULE PO SCH (08:44)
[2023-10-17 13:02] VITALS: BP 128/84; PULSE 106; RESP 18; O2SAT 99
[2023-10-17 17:21] LABS: GLUCOMETER DEV NAME(LOC) 3EX.2; GLUCOSE,POINT OF CARE 270 MG/DL (70-110)
[2023-10-17 21:22] VITALS: BP 110/72; PULSE 99; RESP 18; TEMP 97.2; O2SAT 97
[2023-10-17] MEDS: TraZODone HCL 50 MG TABLET PO SCH (21:30)
[2023-10-17] MEDS ORDERED: BISACODYL 5 MG EC TABLET PO PRN (21:45)
[2023-10-18 07:05] LABS: GLUCOMETER DEV NAME(LOC) 3E.I 2; GLUCOSE,POINT OF CARE 220 MG/DL (70-110)
[2023-10-18 09:00] VITALS: BP 106/74; PULSE 79; RESP 17; TEMP 98; O2SAT 96
[2023-10-18] MEDS: PROPRANOLOL HCL 10 MG TABLET PO SCH (09:19)
[2023-10-18] MEDS: LOPERAMIDE HCL 2 MG CAPSULE PO PRN (09:23)
[2023-10-18 13:31] VITALS: BP 137/83; PULSE 95; RESP 18
[2023-10-18 16:31] LABS: GLUCOMETER DEV NAME(LOC) 3E.I 2; GLUCOSE,POINT OF CARE 245 MG/DL (70-110)
[2023-10-18 16:57] VITALS: BP 134/78; PULSE 92; RESP 18; TEMP 97.4
[2023-10-18 17:57] VITALS: BP 132/76; PULSE 86; RESP 18; TEMP 97.6
[2023-10-18 20:00] VITALS: BP 111/73; PULSE 75; RESP 18; TEMP 98.1
[2023-10-18] MEDS: MAG HYDROX/ALUMINUM HYD/SIMETH ES 30 ML SUSPENSION UDCUP PO PRN (21:23)
[2023-10-19 05:31] LABS: GLUCOMETER DEV NAME(LOC) 3E.I 2; GLUCOSE,POINT OF CARE 187 MG/DL (70-110)
[2023-10-19 10:13] VITALS: BP 109/75; PULSE 103; RESP 21; TEMP 98.1
[2023-10-19] MEDS: PROMETHAZINE HCL 25 MG TABLET PO PRN (13:24)
[2023-10-19 17:51] LABS: GLUCOMETER DEV NAME(LOC) 3E.I 2; GLUCOSE,POINT OF CARE 233 MG/DL (70-110)
[2023-10-19 20:15] LABS: APPEARANCE,URINE CLEAR (CLEAR); BILIRUBIN,URINE NEGATIVE (NEGATIVE); COLOR,URINE COLORLESS (YELLOW); GLUCOSE, URINE (UA) 70-100 mg/dL (NEGATIVE); KETONES,URINE NEGATIVE (NEGATIVE); LEUKOCYTE ESTERASE ,URINE NEGATIVE (NEGATIVE); NITRATE,URINE NEGATIVE (NEGATIVE); OCCULT BLOOD,URINE NEGATIVE (NEGATIVE); PROTEIN,URINE NEGATIVE (NEGATIVE); SPECIFIC GRAVITIY, URINE 1.005 (1.003-1.030); UROBILINOGEN,URINE <=1.0 mg/dL (<=1.0)
[2023-10-19 20:33] VITALS: BP 102/67; PULSE 96; RESP 18; TEMP 97.2
[2023-10-19 20:34] LABS: RBC,URINE None Seen /HPF (0-2)
[2023-10-19 20:35] LABS: BACTERIA,URINE None Seen /HPF (None Seen); WBC,URINE None Seen /HPF (0-5)
[2023-10-20] MEDS: MELATONIN 5 MG TABLET PO PRN (00:42)
[2023-10-20 05:40] LABS: GLUCOMETER DEV NAME(LOC) 3E.I 2; GLUCOSE,POINT OF CARE 215 MG/DL (70-110)
[2023-10-20 09:07] VITALS: BP 110/89; PULSE 79; RESP 18; TEMP 97.9; O2SAT 97
[2023-10-20 17:21] LABS: GLUCOMETER DEV NAME(LOC) 3E.I 2; GLUCOSE,POINT OF CARE 170 MG/DL (70-110)
[2023-10-20 20:55] VITALS: BP 120/80; PULSE 81; RESP 19; TEMP 97.3; O2SAT 97
[2023-10-20 21:24] VITALS: BP 120/80; PULSE 81; RESP 19; TEMP 97.3; O2SAT 97
[2023-10-20 21:58] VITALS: RESP 18
[2023-10-21 07:16] LABS: GLUCOMETER DEV NAME(LOC) 3E.I 2; GLUCOSE,POINT OF CARE 161 MG/DL (70-110)
[2023-10-21] MEDS: LinaGLIPtin 5 MG TABLET PO SCH (08:40)
[2023-10-21 08:46] VITALS: BP 120/82; PULSE 60; RESP 17; TEMP 97.6; O2SAT 100
[2023-10-21 09:07] VITALS: BP 120/82; PULSE 6; PULSE 60; RESP 17; TEMP 97.6; O2SAT 100
[2023-10-21 09:42] VITALS: BP 126/89; PULSE 66; RESP 19; TEMP 97.8; O2SAT 98
[2023-10-21 17:41] LABS: GLUCOMETER DEV NAME(LOC) 3EX.2; GLUCOSE,POINT OF CARE 119 MG/DL (70-110)
[2023-10-21 20:45] VITALS: BP 107/78; PULSE 87; RESP 18; TEMP 97.1; O2SAT 97
[2023-10-21] MEDS: LORazepam 1 MG TABLET PO PRN (21:37)
[2023-10-22 06:10] LABS: GLUCOMETER DEV NAME(LOC) 3E.I 2; GLUCOSE,POINT OF CARE 185 MG/DL (70-110)
[2023-10-22] MEDS: MetFORMIN HCL 850 MG TABLET PO SCH (06:34)
[2023-10-22] MEDS: TraZODone HCL 50 MG TABLET PO SCH (08:41)
[2023-10-22 09:47] VITALS: BP 135/72; PULSE 96; RESP 18; TEMP 97.1; O2SAT 98
[2023-10-22 17:01] LABS: GLUCOMETER DEV NAME(LOC) 3E.I 2; GLUCOSE,POINT OF CARE 167 MG/DL (70-110)
[2023-10-22 21:25] LABS: GLUCOMETER DEV NAME(LOC) 3E.I 2; GLUCOSE,POINT OF CARE 181 MG/DL (70-110)
[2023-10-22] MEDS: QUEtiapine FUMARATE 200 MG TABLET PO SCH (22:21)
[2023-10-22 22:58] VITALS: BP 131/79; PULSE 76; RESP 18; TEMP 97.9; O2SAT 97
[2023-10-23 06:16] LABS: GLUCOMETER DEV NAME(LOC) 3E.I 2; GLUCOSE,POINT OF CARE 160 MG/DL (70-110)
[2023-10-23 07:39] VITALS: BP 121/70; PULSE 100; RESP 19; TEMP 97.4
[2023-10-23] MEDS: QUEtiapine FUMARATE 25 MG TABLET PO SCH (08:28)
[2023-10-23 09:00] VITALS: BP 121/70; PULSE 100; RESP 19; TEMP 97.4; O2SAT 96
[2023-10-23 13:18] VITALS: BP 92/62; PULSE 80; RESP 17; TEMP 98
[2023-10-23] MEDS: GuanFACINE HCL 1 MG TABLET PO SCH (17:15)
[2023-10-23 17:26] LABS: GLUCOMETER DEV NAME(LOC) 3EX.2; GLUCOSE,POINT OF CARE 149 MG/DL (70-110)
[2023-10-23 17:36] VITALS: BP 92/60; RESP 18; O2SAT 97
[2023-10-23 20:02] VITALS: BP 121/83; PULSE 86; RESP 18; TEMP 97.1; O2SAT 98
[2023-10-23 21:16] LABS: GLUCOMETER DEV NAME(LOC) 3E.I 2; GLUCOSE,POINT OF CARE 149 MG/DL (70-110)
[2023-10-23] MEDS: TraZODone HCL 100 MG TABLET PO SCH (21:29)
[2023-10-24 06:30] LABS: GLUCOMETER DEV NAME(LOC) 3E.I 2; GLUCOSE,POINT OF CARE 154 MG/DL (70-110)
[2023-10-24] MEDS: QUEtiapine FUMARATE 25 MG TABLET PO SCH (08:06)
[2023-10-24 09:27] VITALS: BP 106/76; PULSE 110; RESP 20; TEMP 97.3; O2SAT 99
[2023-10-24] MEDS: QUEtiapine FUMARATE 100 MG TABLET PO PRN (10:07)
[2023-10-24 14:23] VITALS: BP 112/74; PULSE 84; RESP 18; TEMP 97.4
[2023-10-24 15:23] VITALS: BP 116/78; PULSE 82; RESP 18; TEMP 97.2
[2023-10-24] MEDS ORDERED: DULO-113 PO (16:38)
[2023-10-24] MEDS ORDERED: QUET200T30 PO (16:38)
[2023-10-24] MEDS ORDERED: GUAN1TAB2 PO (16:38)
[2023-10-24] MEDS ORDERED: NALT50TA33 PO (16:38)
[2023-10-24] MEDS ORDERED: PROP10TA72 PO (16:38)
[2023-10-24] MEDS ORDERED: OMEG-135 PO (16:38)
[2023-10-24] MEDS ORDERED: TRAZ-257 PO (16:38)
[2023-10-24] MEDS ORDERED: GABA-1201 PO (16:38)
[2023-10-24 17:55] LABS: GLUCOMETER DEV NAME(LOC) 3EX.2; GLUCOSE,POINT OF CARE 183 MG/DL (70-110)
[2023-10-24 20:06] VITALS: BP 131/78; PULSE 78; RESP 18; TEMP 98.1; O2SAT 98
[2023-10-25 06:33] VITALS: RESP 18
[2023-10-25 07:16] LABS: GLUCOMETER DEV NAME(LOC) 3E.I 2; GLUCOSE,POINT OF CARE 143 MG/DL (70-110)
[2023-10-25 07:36] VITALS: RESP 18
[2023-10-25 08:33] VITALS: BP 101/70; PULSE 84; RESP 18; TEMP 97.1; O2SAT 99
[2023-10-25 10:14] VITALS: BP 126/71
[2023-10-25] MEDS ORDERED: METF-1185 PO (12:19)
[2023-10-25] MEDS ORDERED: LINA5TAB PO (12:19)
== END 2023-10-25 16:15 | disposition home or self-care (01) | DRG 885 ==
LOC: 3EX 20:30
PROVIDERS: ADMIT Psychiatry & Neurology Psychiatry; ATTEND Psychiatry & Neurology Psychiatry
PROC: GZHZZZZ Group Psychotherapy (ICD-10-PCS; principal; 2023-10-25)
PROC: GZ51ZZZ Individual Psychotherapy, Behavioral (ICD-10-PCS; 2023-10-25)
DX: F25.0 Schizoaffective disorder, bipolar type (principal); K21.9 Gastro-esophageal reflux disease without esophagitis; I10 Essential (primary) hypertension; K52.9 Noninfective gastroenteritis and colitis, unspecified; E78.00 Pure hypercholesterolemia, unspecified; F10.20 Alcohol dependence, uncomplicated; F41.9 Anxiety disorder, unspecified; J44.9 Chronic obstructive pulmonary disease, unspecified; E11.42 Type 2 diabetes mellitus with diabetic polyneuropathy; F17.200 Nicotine dependence, unspecified, uncomplicated; Z74.01 Bed confinement status; Z90.49 Acquired absence of other specified parts of digestive tract
CPT/HCPCS: 80061; 81001; 81003; 82962; 83036; 84153; 84439; 84443; 87081; 97110; 97116; 97162; 97167; 97530; 97535; G0378; J3420; Q9967

== ENCOUNTER → 2023-10-26 | Emergency (ER) | payer MEDICARE, MEDICAID ==
[~2023-10-26] VITALS: Ht 180.3 cm; Wt 104.5 kg
[~2023-10-26] MED LIST changes: +DULO-113 PO; +GUAN1TAB2 PO; +LINA5TAB PO; +LORA-1000 PO; +METF-1185 PO; +NALT50TA33 PO; +OMEG-135 PO; +QUET200T30 PO; +TRAZ-257 PO
[2023-10-26 19:08] VITALS: BP 130/76; PULSE 115; RESP 20; TEMP 98
== END | disposition still patient (30) ==
LOC: EMS 19:11
DX: F41.9 Anxiety disorder, unspecified (principal); Z53.21 Procedure and treatment not carried out due to patient leaving prior to being seen by health care provider
CPT/HCPCS: 82962; 99281

== ENCOUNTER 2023-10-27 00:53 | Emergency (ER) | payer MEDICARE, OTHER ==
[~2023-10-27] VITALS: Ht 180.3 cm; Wt 104.5 kg
[~2023-10-27 00:53] MED LIST changes: -DULO-114 PO; -HYDR-4808 PO; -LORA-1000 PO; -METF-1211 PO; -TRAZ-283 PO
[2023-10-27 00:57] VITALS: TEMP 98.1
[2023-10-27] MEDS: HydrOXYzine PAMOATE 50 MG CAPSULE PO ONE (03:12)
[2023-10-27 03:15] VITALS: BP 144/76; PULSE 98; RESP 16
[2023-10-27] MEDS ORDERED: LORA-1000 PO (08:08)
== END 2023-10-27 03:45 | disposition home or self-care (01) ==
LOC: EMS 00:56
DX: F41.9 Anxiety disorder, unspecified (principal); F25.9 Schizoaffective disorder, unspecified; F10.20 Alcohol dependence, uncomplicated; F32.A Depression, unspecified; E11.9 Type 2 diabetes mellitus without complications; E78.00 Pure hypercholesterolemia, unspecified; I10 Essential (primary) hypertension; Z87.891 Personal history of nicotine dependence; Z90.49 Acquired absence of other specified parts of digestive tract; Z98.890 Other specified postprocedural states
CPT/HCPCS: 82962; 99283

== ENCOUNTER 2023-10-27 07:15 | Emergency (ER) | payer MEDICARE, OTHER ==
[~2023-10-27] VITALS: Ht 180.3 cm; Wt 104.5 kg
[2023-10-27 07:21] VITALS: TEMP 97.9
[2023-10-27 07:30] VITALS: BP 140/73; PULSE 114; RESP 20
[2023-10-27 07:36] LABS: GLUCOMETER DEV NAME(LOC) ER.6; GLUCOSE,POINT OF CARE 265 MG/DL (70-110)
[2023-10-27] MEDS ORDERED: LORA-1000 PO (08:08)
[2023-10-27] MEDS: LORazepam 1 MG TABLET PO ONE (08:15)
== END 2023-10-27 08:19 | disposition home or self-care (01) ==
LOC: EMS 07:15
DX: F41.9 Anxiety disorder, unspecified (principal); E11.9 Type 2 diabetes mellitus without complications; E78.00 Pure hypercholesterolemia, unspecified; I10 Essential (primary) hypertension; K21.9 Gastro-esophageal reflux disease without esophagitis; F20.9 Schizophrenia, unspecified; F32.A Depression, unspecified; Z87.891 Personal history of nicotine dependence; Z90.49 Acquired absence of other specified parts of digestive tract
CPT/HCPCS: 82962; 99283

== ENCOUNTER 2023-11-04 16:26 | Emergency (ER) | payer MEDICARE, MEDICAID, OTHER ==
[~2023-11-04] VITALS: Ht 180.3 cm; Wt 104.5 kg
[~2023-11-04 16:26] MED LIST changes: +LORA-1000 PO
[2023-11-04 17:51] VITALS: TEMP 97.9
[2023-11-04 20:11] LABS: BASOPHILS % (AUTO) 0.9 % (0.0-2.0); EOSINOPHILS % (AUTO) 1.3 % (1.0-6.0); HEMATOCRIT 37.3 % (41-53); HEMOGLOBIN 12.6 g/dL (13.5-17.5); LYMPHOCYTES # (AUTO) 2.1 K/uL (1.0-4.8); LYMPHOCYTES % (AUTO) 19.6 % (22.0-44.0); MEAN CORPUSCULAR HEMOGLOBIN 29.8 pg (26.0-34.0); MEAN CORPUSCULAR HGB CONC 33.8 G/dL (31.0-37.0); MEAN CORPUSCULAR VOLUME 88 fL (80-100); MONOCYTES # (AUTO) 1.1 K/uL (0.1-1.0); MONOCYTES % (AUTO) 10.7 % (2.0-9.0); NEUTROPHILS # (AUTO) 7.2 K/uL (1.8-7.7); NEUTROPHILS % (AUTO) 67.5 % (40.0-70.0); PLATELET COUNT (AUTO) 352 K/uL (150-450); RED BLOOD CELL COUNT(AUTO) 4.24 MIL/uL (4.50-5.90); RED CELL DISTRIBUTION WIDTH 14.6 % (11.5-14.5); WHITE BLOOD COUNT (AUTO) 10.6 K/uL (4.5-11.0)
[2023-11-04] MEDS: MAG HYDROX/ALUMINUM HYD/SIMETH ES 30 ML SUSPENSION UDCUP PO ONE (20:20)
[2023-11-04 20:21] LABS: CALCIUM, TOTAL 9.3 mg/dL (8.8-10.5); CREATININE 1.28 mg/dL (0.60-1.30); POTASSIUM 3.6 mmol/L (3.5-5.1)
[2023-11-04] MEDS: OMEPRAZOLE 20 MG CAPSULE PO ONE (20:21)
[2023-11-04] MEDS: ACETAMINOPHEN 500 MG TABLET PO ONE (20:22)
[2023-11-04 20:26] LABS: ALBUMIN 3.8 g/dL (3.4-5.0); BILIRUBIN,TOTAL 0.7 mg/dL (0.1-1.0); TOTAL PROTEIN, SERUM 7.4 g/dL (6.4-8.2)
[2023-11-04 20:28] LABS: TROPONIN I-HIGH SENSITIVITY 4 ng/L (<76)
[2023-11-04 21:28] VITALS: BP 138/76; PULSE 95; RESP 20
== END 2023-11-04 21:30 | disposition short-term general hospital (02) ==
LOC: EMS 16:26
DX: F25.1 Schizoaffective disorder, depressive type (principal); R10.11 Right upper quadrant pain; F10.20 Alcohol dependence, uncomplicated; F41.9 Anxiety disorder, unspecified; E11.9 Type 2 diabetes mellitus without complications; E78.00 Pure hypercholesterolemia, unspecified; I10 Essential (primary) hypertension; Z87.891 Personal history of nicotine dependence; Z90.49 Acquired absence of other specified parts of digestive tract; Z98.890 Other specified postprocedural states
CPT/HCPCS: 80053; 83690; 84484; 85025; 93005; 99285

== ENCOUNTER 2023-12-11 02:07 | Emergency (ER) | payer MEDICARE, OTHER ==
[~2023-12-11] VITALS: Ht 180.3 cm; Wt 106.8 kg
[~2023-12-11 02:07] MED LIST changes: +DULO-114 PO; +HYDR50CA7 PO; -LORA-1000 PO; +MELA5TAB40 PO; +PARO-37 PO; +PREG50 PO
[2023-12-11 03:55] VITALS: BP 124/63; PULSE 92; RESP 18; TEMP 98.3
[2023-12-11] MEDS: LORazepam 2 MG TABLET PO ONE (04:40)
== END 2023-12-11 04:43 | disposition home or self-care (01) ==
LOC: EMS 02:08
DX: F41.9 Anxiety disorder, unspecified (principal); E11.9 Type 2 diabetes mellitus without complications; K21.9 Gastro-esophageal reflux disease without esophagitis; I10 Essential (primary) hypertension
CPT/HCPCS: 99283

== ENCOUNTER 2023-12-11 12:28 | Emergency (ER) | payer MEDICARE, OTHER ==
[~2023-12-11] VITALS: Ht 175.3 cm; Wt 104.0 kg
[2023-12-11 12:34] VITALS: TEMP 98
[2023-12-11 14:10] VITALS: BP 122/76; PULSE 94; RESP 18
[2023-12-11] MEDS: HydrOXYzine HCL 50 MG TABLET PO ONE (14:48)
== END 2023-12-11 15:01 | disposition home or self-care (01) ==
LOC: EMS 12:28
DX: F41.9 Anxiety disorder, unspecified (principal); E11.9 Type 2 diabetes mellitus without complications; I10 Essential (primary) hypertension; K21.9 Gastro-esophageal reflux disease without esophagitis
CPT/HCPCS: 99283

== ENCOUNTER 2023-12-11 17:24 | Emergency (ER) | payer MEDICARE, OTHER | END 2023-12-11 18:52 | disposition left against medical advice (07) | LOC: EMS 17:30 | DX: F41.9 Anxiety disorder, unspecified (principal); Z53.21 Procedure and treatment not carried out due to patient leaving prior to being seen by health care provider ==

== ENCOUNTER 2023-12-25 09:22 | Emergency (ER) | payer MEDICARE, OTHER ==
[~2023-12-25] VITALS: Ht 180.3 cm; Wt 102.3 kg
[2023-12-25 09:25] VITALS: BP 104/65; PULSE 98; RESP 20; TEMP 97.9
[2023-12-25] MEDS ORDERED: RISP4TAB94 PO (09:27)
[2023-12-25] MEDS ORDERED: METF-1211 PO (09:27)
[2023-12-25] MEDS ORDERED: HYDR50CA6 PO (09:27)
[2023-12-25] MEDS ORDERED: CLON-595 PO (11:05)
[2023-12-25] MEDS: LORazepam 2 MG/ML VIAL IM ONE (11:11)
== END 2023-12-25 11:20 | disposition home or self-care (01) ==
LOC: EMS 09:22
DX: F41.9 Anxiety disorder, unspecified (principal); E11.9 Type 2 diabetes mellitus without complications; I10 Essential (primary) hypertension; K21.9 Gastro-esophageal reflux disease without esophagitis
CPT/HCPCS: 99283; 82962; 96372; J2060

== ENCOUNTER 2024-01-07 11:43 | Emergency (ER) | payer MEDICARE, OTHER ==
[~2024-01-07] VITALS: Ht 180.3 cm; Wt 102.3 kg
[~2024-01-07 11:43] MED LIST changes: +CLON-595 PO; -DULO-113 PO; -DULO-114 PO; -GABA-1201 PO; -GUAN1TAB2 PO; +HYDR50CA6 PO; -HYDR50CA7 PO; -LINA5TAB PO; -MELA5TAB40 PO; -METF-1185 PO; +METF-1211 PO; -NALT50TA33 PO; -OMEG-135 PO; -PARO-37 PO; -PREG50 PO; -PROP10TA72 PO; -QUET200T30 PO; +RISP4TAB94 PO; -TRAZ-257 PO
[2024-01-07 11:58] VITALS: BP 141/71; PULSE 64; RESP 22; TEMP 98
[2024-01-07] MEDS ORDERED: CLON-595 PO (14:29)
[2024-01-07] MEDS: ClonazePAM 1 MG TABLET PO ONE (14:49)
== END 2024-01-07 14:52 | disposition home or self-care (01) ==
LOC: EMS 11:43
DX: F41.9 Anxiety disorder, unspecified (principal); E11.9 Type 2 diabetes mellitus without complications; E78.00 Pure hypercholesterolemia, unspecified; I10 Essential (primary) hypertension; F32.A Depression, unspecified; F20.9 Schizophrenia, unspecified; K21.9 Gastro-esophageal reflux disease without esophagitis; Z87.891 Personal history of nicotine dependence; Z90.49 Acquired absence of other specified parts of digestive tract
CPT/HCPCS: 99283

== ENCOUNTER 2024-01-12 08:29 | Emergency (ER) | payer MEDICARE, OTHER ==
[~2024-01-12] VITALS: Ht 180.3 cm; Wt 102.0 kg
[2024-01-12 08:33] VITALS: BP 149/96; PULSE 112; RESP 16; TEMP 98.4
[2024-01-12] MEDS ORDERED: CLON-595 PO (08:56)
[2024-01-12] MEDS: LORazepam 1 MG TABLET PO ONE (09:03)
== END 2024-01-12 09:20 | disposition home or self-care (01) ==
LOC: EMS 08:31
DX: F41.9 Anxiety disorder, unspecified (principal); F10.20 Alcohol dependence, uncomplicated; F32.A Depression, unspecified; E11.9 Type 2 diabetes mellitus without complications; E78.00 Pure hypercholesterolemia, unspecified; I10 Essential (primary) hypertension; F20.9 Schizophrenia, unspecified; Z87.891 Personal history of nicotine dependence; Z90.49 Acquired absence of other specified parts of digestive tract; Z98.890 Other specified postprocedural states
CPT/HCPCS: 99283

== ENCOUNTER 2024-01-14 10:01 | Inpatient (IN) | payer MEDICARE, MEDICAID, OTHER ==
[~2024-01-14] VITALS: Ht 180.3 cm; Wt 95.7 kg
[2024-01-14 10:55] LABS: BASOPHILS % (AUTO) 0.3 % (0.0-2.0); EOSINOPHILS % (AUTO) 1.2 % (1.0-6.0); HEMATOCRIT 41.7 % (41-53); HEMOGLOBIN 13.9 g/dL (13.5-17.5); LYMPHOCYTES # (AUTO) 1.2 K/uL (1.0-4.8); LYMPHOCYTES % (AUTO) 12.3 % (22.0-44.0); MEAN CORPUSCULAR HEMOGLOBIN 29.4 pg (26.0-34.0); MEAN CORPUSCULAR HGB CONC 33.4 G/dL (31.0-37.0); MEAN CORPUSCULAR VOLUME 88 fL (80-100); MONOCYTES # (AUTO) 0.7 K/uL (0.1-1.0); MONOCYTES % (AUTO) 7.3 % (2.0-9.0); NEUTROPHILS % (AUTO) 78.9 % (40.0-70.0); PLATELET COUNT (AUTO) 236 K/uL (150-450); RED BLOOD CELL COUNT(AUTO) 4.75 MIL/uL (4.50-5.90); RED CELL DISTRIBUTION WIDTH 13.9 % (11.5-14.5); WHITE BLOOD COUNT (AUTO) 10.1 K/uL (4.5-11.0)
[2024-01-14 11:03] LABS: ANION GAP 13 mmol/L (8-16); CALCIUM, TOTAL 9.4 mg/dL (8.8-10.5); CARBON DIOXIDE 24 mmol/L (22-29); CHLORIDE 97 mmol/L (98-107); CREATININE 1.12 mg/dL (0.60-1.30); GLOMERULAR FILTR. RATE CALC > 60 mL/min (>60); GLUCOSE,RANDOM 252 mg/dL (70-110); POTASSIUM 4.1 mmol/L (3.5-5.1); SODIUM SERUM 134 mmol/L (136-145); UREA NITROGEN, BLOOD 11 mg/dL (7-18)
[2024-01-14 11:12] LABS: ALCOHOL, BLOOD (SERUM) < 3 mg/dL (0-10)
[2024-01-14 11:34] LABS: COVID AG,FIA SOURCE NASAL SWAB
[2024-01-14 11:47] LABS: APPEARANCE,URINE CLEAR (CLEAR); BILIRUBIN,URINE NEGATIVE (NEGATIVE); COLOR,URINE LIGHT YELLOW (YELLOW); GLUCOSE, URINE (UA) 300-500 mg/dL (NEGATIVE); KETONES,URINE NEGATIVE (NEGATIVE); LEUKOCYTE ESTERASE ,URINE NEGATIVE (NEGATIVE); NITRATE,URINE NEGATIVE (NEGATIVE); OCCULT BLOOD,URINE NEGATIVE (NEGATIVE); PH,URINE 5.5 (5.0-8.0); PROTEIN,URINE NEGATIVE (NEGATIVE); SPECIFIC GRAVITIY, URINE 1.014 (1.003-1.030); UROBILINOGEN,URINE <=1.0 mg/dL (<=1.0)
[2024-01-14 11:48] LABS: PH,URINE DRUG SCREEN 5.5 (5.0-8.0)
[2024-01-14] MEDS: LORazepam 1 MG TABLET PO ONE (11:52)
[2024-01-14] MEDS: HALOPERIDOL 5 MG TABLET PO ONE (11:52)
[2024-01-14 11:57] LABS: SARS-COV2 (COVID) ANTIGEN,FIA Negative (Negative)
[2024-01-14 11:58] LABS: ALCOHOL, URINE DRUG SCREEN NEGATIVE (NEGATIVE); AMPHET/METH SCREEN,URINE NEGATIVE (NEGATIVE); BARBITURATE SCREEN, URINE NEGATIVE (NEGATIVE); BENZODIAZEPINES SCREEN,URINE NEGATIVE (NEGATIVE); CANNABINOID SCREEN,URINE NEGATIVE (NEGATIVE); COCAINE SCREEN,URINE NEGATIVE (NEGATIVE); METHADONE SCREEN, URINE NEGATIVE (NEGATIVE); OPIATE SCREEN,URINE NEGATIVE (NEGATIVE); PHENCYCLIDINE SCREEN,URINE NEGATIVE (NEGATIVE)
[2024-01-14 12:17] LABS: BACTERIA,URINE None Seen /HPF (None Seen); RBC,URINE None Seen /HPF (0-2); WBC,URINE 0-2 /HPF (0-5)
[2024-01-14] MEDS: LORazepam 2 MG TABLET PO PRN (15:41)
[2024-01-14] MEDS: HALOPERIDOL 5 MG TABLET PO PRN (15:41)
[2024-01-14] MEDS: MAG HYDROX/ALUMINUM HYD/SIMETH 30 ML SUSPENSION UDCUP PO ONE (18:34)
[2024-01-14] MEDS ORDERED: BENZOCAINE/MENTHOL LOZENGE PO PRN (21:00)
[2024-01-14] MEDS ORDERED: CloNIDine HCL 0.1 MG TABLET PO PRN (21:00)
[2024-01-14] MEDS ORDERED: BACITRACIN 28 GM OINTMENT TP PRN (21:00)
[2024-01-14] MEDS ORDERED: ALBUTEROL SULFATE HFA 90 MCG/PUFF 8 GM INHALER IH PRN (21:00)
[2024-01-14] MEDS ORDERED: LOPERAMIDE HCL 2 MG CAPSULE PO PRN (21:00)
[2024-01-14] MEDS ORDERED: PETROLATUM,WHITE 28 GM JELLY TP PRN (21:00)
[2024-01-14] MEDS ORDERED: DOCUSATE SODIUM 100 MG CAPSULE PO PRN (21:00)
[2024-01-14 21:40] VITALS: BP 132/63; PULSE 107; RESP 18; TEMP 97.2; O2SAT 96
[2024-01-14] MEDS: ZOLPIDEM TARTRATE 10 MG TABLET PO PRN (22:24)
[2024-01-15] MEDS: INSULIN LISPRO 100 UNITS/ML SQ PRN (06:34)
[2024-01-15 06:45] LABS: GLUCOMETER DEV NAME(LOC) 3EX.2; GLUCOSE,POINT OF CARE 188 MG/DL (70-110)
[2024-01-15 10:32] VITALS: BP 114/77; PULSE 98; RESP 17; TEMP 96.1; O2SAT 96
[2024-01-15] MEDS: RisperiDONE 2 MG TABLET PO SCH (11:33)
[2024-01-15] MEDS: CITALOPRAM HYDROBROMIDE 20 MG TABLET PO SCH (11:33)
[2024-01-15 11:35] LABS: GLUCOMETER DEV NAME(LOC) 3EX.2; GLUCOSE,POINT OF CARE 172 MG/DL (70-110)
[2024-01-15 17:21] LABS: GLUCOMETER DEV NAME(LOC) 3EX.2; GLUCOSE,POINT OF CARE 205 MG/DL (70-110)
[2024-01-15 20:26] LABS: GLUCOMETER DEV NAME(LOC) 3EX.2; GLUCOSE,POINT OF CARE 156 MG/DL (70-110)
[2024-01-15 20:50] VITALS: BP 125/93; PULSE 112; RESP 18; TEMP 97.9; O2SAT 97
[2024-01-15] MEDS: TraZODone HCL 50 MG TABLET PO SCH (21:21)
[2024-01-16 06:25] LABS: GLUCOMETER DEV NAME(LOC) 3EX.2; GLUCOSE,POINT OF CARE 180 MG/DL (70-110)
[2024-01-16] MEDS: MAG HYDROX/ALUMINUM HYD/SIMETH ES 30 ML SUSPENSION UDCUP PO PRN (10:12)
[2024-01-16 10:47] VITALS: BP 123/81; PULSE 104; RESP 18; TEMP 97.5; O2SAT 98
[2024-01-16 12:06] LABS: GLUCOMETER DEV NAME(LOC) 3EX.2; GLUCOSE,POINT OF CARE 270 MG/DL (70-110)
[2024-01-16] MEDS: OMEPRAZOLE 20 MG CAPSULE PO PRN (12:19)
[2024-01-16 15:02] VITALS: BP 131/79; RESP 18; TEMP 98
[2024-01-16] MEDS: IBUPROFEN 600 MG TABLET PO PRN (15:02)
[2024-01-16 16:02] VITALS: BP 131/82; PULSE 88; RESP 18; TEMP 97.9
[2024-01-16 17:45] LABS: GLUCOMETER DEV NAME(LOC) 3EX.2; GLUCOSE,POINT OF CARE 226 MG/DL (70-110)
[2024-01-16 20:20] LABS: GLUCOMETER DEV NAME(LOC) 3EX.2; GLUCOSE,POINT OF CARE 163 MG/DL (70-110)
[2024-01-16 20:24] VITALS: BP 147/85; PULSE 97; RESP 18; TEMP 97.2
[2024-01-17 06:16] LABS: GLUCOMETER DEV NAME(LOC) 3EX.2; GLUCOSE,POINT OF CARE 201 MG/DL (70-110)
[2024-01-17 10:18] VITALS: BP 132/78; PULSE 100; RESP 18; TEMP 97.6
[2024-01-17 11:36] LABS: GLUCOMETER DEV NAME(LOC) 3E.I 2; GLUCOSE,POINT OF CARE 261 MG/DL (70-110)
[2024-01-17 16:56] LABS: GLUCOMETER DEV NAME(LOC) 3E.I 2; GLUCOSE,POINT OF CARE 194 MG/DL (70-110)
[2024-01-17 20:23] VITALS: BP 154/91; PULSE 105; RESP 18; TEMP 98.2; O2SAT 98
[2024-01-17 20:25] LABS: GLUCOMETER DEV NAME(LOC) 3EX.2; GLUCOSE,POINT OF CARE 195 MG/DL (70-110)
[2024-01-18 06:16] LABS: GLUCOMETER DEV NAME(LOC) 3E.I 2; GLUCOSE,POINT OF CARE 198 MG/DL (70-110)
[2024-01-18 09:08] VITALS: BP 132/80; PULSE 112; RESP 18; TEMP 97.7; O2SAT 97
[2024-01-18 09:24] VITALS: BP 129/78; PULSE 106; RESP 20; O2SAT 99
[2024-01-18 11:35] LABS: GLUCOMETER DEV NAME(LOC) 3E.I 2; GLUCOSE,POINT OF CARE 210 MG/DL (70-110)
[2024-01-18 16:45] LABS: GLUCOMETER DEV NAME(LOC) 3E.I 2; GLUCOSE,POINT OF CARE 334 MG/DL (70-110)
[2024-01-18 20:40] LABS: GLUCOMETER DEV NAME(LOC) 3EX.2; GLUCOSE,POINT OF CARE 173 MG/DL (70-110)
[2024-01-18 21:04] VITALS: BP 132/83; PULSE 115; RESP 18; TEMP 98.1; O2SAT 96
[2024-01-19 06:26] LABS: GLUCOMETER DEV NAME(LOC) 3EX.2; GLUCOSE,POINT OF CARE 186 MG/DL (70-110)
[2024-01-19 08:30] VITALS: BP 138/77; PULSE 99; RESP 19; TEMP 97.8; O2SAT 96
[2024-01-19] MEDS: MAGNESIUM HYDROXIDE SUSPENSION 30 ML UDCUP PO PRN (11:47)
[2024-01-19 12:00] LABS: GLUCOMETER DEV NAME(LOC) 3E.I 2; GLUCOSE,POINT OF CARE 327 MG/DL (70-110)
[2024-01-19] MEDS: DOCUSATE SODIUM 250 MG CAPSULE PO PRN (15:35)
[2024-01-19] MEDS: ACETAMINOPHEN 325 MG TABLET PO PRN (15:36)
[2024-01-19 15:37] VITALS: BP 142/68; PULSE 76; RESP 18
[2024-01-19 16:36] VITALS: RESP 17
[2024-01-19 17:15] LABS: GLUCOMETER DEV NAME(LOC) 3E.I 2; GLUCOSE,POINT OF CARE 287 MG/DL (70-110)
[2024-01-19 20:11] LABS: GLUCOMETER DEV NAME(LOC) 3EX.2; GLUCOSE,POINT OF CARE 192 MG/DL (70-110)
[2024-01-19 22:03] VITALS: BP 107/64; PULSE 94; RESP 18; TEMP 98.3; O2SAT 96
[2024-01-20 05:31] LABS: GLUCOMETER DEV NAME(LOC) 3EX.2; GLUCOSE,POINT OF CARE 195 MG/DL (70-110)
[2024-01-20 09:51] VITALS: BP 106/64; PULSE 98; RESP 18; TEMP 97.5; O2SAT 96
[2024-01-20 11:56] LABS: GLUCOMETER DEV NAME(LOC) 3E.I 2; GLUCOSE,POINT OF CARE 215 MG/DL (70-110)
[2024-01-20 14:25] VITALS: BP 120/80; PULSE 75; RESP 17; O2SAT 98
[2024-01-20 17:16] LABS: GLUCOMETER DEV NAME(LOC) 3E.I 2; GLUCOSE,POINT OF CARE 264 MG/DL (70-110)
[2024-01-20 20:00] LABS: GLUCOMETER DEV NAME(LOC) 3EX.2; GLUCOSE,POINT OF CARE 187 MG/DL (70-110)
[2024-01-20 20:43] VITALS: BP 130/71; PULSE 76; RESP 18; TEMP 97.4; O2SAT 98
[2024-01-21 06:16] LABS: GLUCOMETER DEV NAME(LOC) 3EX.2; GLUCOSE,POINT OF CARE 211 MG/DL (70-110)
[2024-01-21 09:17] VITALS: BP 140/96; PULSE 108; RESP 18; TEMP 97.2; O2SAT 99
[2024-01-21 12:00] LABS: GLUCOMETER DEV NAME(LOC) 3EX.2; GLUCOSE,POINT OF CARE 246 MG/DL (70-110)
[2024-01-21 16:31] LABS: GLUCOMETER DEV NAME(LOC) 3EX.2; GLUCOSE,POINT OF CARE 298 MG/DL (70-110)
[2024-01-21 20:30] LABS: GLUCOMETER DEV NAME(LOC) 3EX.2; GLUCOSE,POINT OF CARE 252 MG/DL (70-110)
[2024-01-21 21:10] VITALS: BP 129/68; PULSE 91; RESP 18; TEMP 98; O2SAT 96
[2024-01-22 06:26] LABS: GLUCOMETER DEV NAME(LOC) 3EX.2; GLUCOSE,POINT OF CARE 233 MG/DL (70-110)
[2024-01-22] MEDS: ONDANSETRON HCL 4 MG TABLET PO PRN (08:27)
[2024-01-22 09:38] VITALS: BP 105/81; PULSE 100; RESP 18; TEMP 97.7; O2SAT 96
[2024-01-22 11:40] LABS: GLUCOMETER DEV NAME(LOC) 3E.I 2; GLUCOSE,POINT OF CARE 305 MG/DL (70-110)
[2024-01-22 12:41] VITALS: BP 116/80; PULSE 102; RESP 18
[2024-01-22 17:40] LABS: GLUCOMETER DEV NAME(LOC) 3E.I 2; GLUCOSE,POINT OF CARE 319 MG/DL (70-110)
[2024-01-22 20:50] LABS: GLUCOMETER DEV NAME(LOC) 3EX.2; GLUCOSE,POINT OF CARE 218 MG/DL (70-110)
[2024-01-22 20:56] VITALS: BP 121/81; PULSE 105; RESP 18; TEMP 97.5; O2SAT 98
[2024-01-22] MEDS: TraZODone HCL 150 MG TABLET PO SCH (21:09)
[2024-01-23 05:51] LABS: GLUCOMETER DEV NAME(LOC) 3E.I 2; GLUCOSE,POINT OF CARE 278 MG/DL (70-110)
[2024-01-23 11:16] LABS: GLUCOMETER DEV NAME(LOC) 3EX.2; GLUCOSE,POINT OF CARE 271 MG/DL (70-110)
[2024-01-23 12:20] VITALS: RESP 18
[2024-01-23 16:35] LABS: GLUCOMETER DEV NAME(LOC) 3EX.2; GLUCOSE,POINT OF CARE 266 MG/DL (70-110)
[2024-01-23 20:11] LABS: GLUCOMETER DEV NAME(LOC) 3E.I 2; GLUCOSE,POINT OF CARE 163 MG/DL (70-110)
[2024-01-23 23:35] VITALS: BP 135/96; PULSE 86; RESP 18; TEMP 98.4; O2SAT 98
[2024-01-24 06:11] LABS: GLUCOMETER DEV NAME(LOC) 3E.I 2; GLUCOSE,POINT OF CARE 212 MG/DL (70-110)
[2024-01-24 11:26] LABS: GLUCOMETER DEV NAME(LOC) 3EX.2; GLUCOSE,POINT OF CARE 371 MG/DL (70-110)
[2024-01-24] MEDS ORDERED: TRAZ-283 PO (15:07)
[2024-01-24] MEDS ORDERED: RISP-32 PO (15:07)
[2024-01-24] MEDS ORDERED: CITA-144 PO (15:07)
[2024-01-24 15:11] VITALS: RESP 18
== END 2024-01-24 16:01 | disposition home or self-care (01) | DRG 885 ==
LOC: EMS 10:01 → 3EX 14:01
PROVIDERS: ADMIT Psychiatry & Neurology Child & Adolescent Psychiatry; ATTEND Psychiatry & Neurology Child & Adolescent Psychiatry
PROC: GZHZZZZ Group Psychotherapy (ICD-10-PCS; principal; 2024-01-15)
PROC: GZ51ZZZ Individual Psychotherapy, Behavioral (ICD-10-PCS; 2024-01-15)
DX: F25.1 Schizoaffective disorder, depressive type (principal); R45.851 Suicidal ideations; F41.9 Anxiety disorder, unspecified; E11.9 Type 2 diabetes mellitus without complications; I10 Essential (primary) hypertension; K21.9 Gastro-esophageal reflux disease without esophagitis; Z20.822 Contact with and (suspected) exposure to COVID-19; G47.00 Insomnia, unspecified; K59.00 Constipation, unspecified; F15.90 Other stimulant use, unspecified, uncomplicated
CPT/HCPCS: 74019; 80048; 80307; 81001; 82962; 85025; 87081; 99285; G0378; G0480; Q0162

== ENCOUNTER → 2024-01-25 | Emergency (ER) | payer MEDICARE, OTHER ==
[~2024-01-25] VITALS: Ht 172.7 cm; Wt 98.0 kg
[~2024-01-25] MED LIST changes: +CITA-144 PO; -CLON-595 PO; -HYDR50CA6 PO; +RISP-32 PO; -RISP4TAB94 PO; +TRAZ-283 PO; +ZIPRASIDONE MESYLATE 20 MG/VIAL IM ONE
[2024-01-25 11:31] VITALS: BP 128/79; PULSE 112; RESP 16; TEMP 98
[2024-01-25 17:16] LABS: BASOPHILS % (AUTO) 0.4 % (0.0-2.0); EOSINOPHILS % (AUTO) 0.2 % (1.0-6.0); HEMATOCRIT 38.1 % (41-53); HEMOGLOBIN 12.7 g/dL (13.5-17.5); LYMPHOCYTES % (AUTO) 15.5 % (22.0-44.0); MEAN CORPUSCULAR HEMOGLOBIN 29.6 pg (26.0-34.0); MEAN CORPUSCULAR HGB CONC 33.4 G/dL (31.0-37.0); MEAN CORPUSCULAR VOLUME 89 fL (80-100); MONOCYTES # (AUTO) 0.6 K/uL (0.1-1.0); MONOCYTES % (AUTO) 9.8 % (2.0-9.0); NEUTROPHILS # (AUTO) 4.8 K/uL (1.8-7.7); NEUTROPHILS % (AUTO) 74.1 % (40.0-70.0); PLATELET COUNT (AUTO) 274 K/uL (150-450); RED CELL DISTRIBUTION WIDTH 14.1 % (11.5-14.5); WHITE BLOOD COUNT (AUTO) 6.5 K/uL (4.5-11.0)
[2024-01-25 17:22] LABS: ALCOHOL, URINE DRUG SCREEN NEGATIVE (NEGATIVE); AMPHET/METH SCREEN,URINE NEGATIVE (NEGATIVE); BARBITURATE SCREEN, URINE NEGATIVE (NEGATIVE); BENZODIAZEPINES SCREEN,URINE NEGATIVE (NEGATIVE); CANNABINOID SCREEN,URINE NEGATIVE (NEGATIVE); COCAINE SCREEN,URINE NEGATIVE (NEGATIVE); METHADONE SCREEN, URINE NEGATIVE (NEGATIVE); OPIATE SCREEN,URINE NEGATIVE (NEGATIVE); PHENCYCLIDINE SCREEN,URINE NEGATIVE (NEGATIVE)
[2024-01-25 17:36] LABS: ANION GAP 9 mmol/L (8-16); CALCIUM, TOTAL 8.9 mg/dL (8.8-10.5); CARBON DIOXIDE 24 mmol/L (22-29); CHLORIDE 97 mmol/L (98-107); CREATININE 1.09 mg/dL (0.60-1.30); GLOMERULAR FILTR. RATE CALC > 60 mL/min (>60); GLUCOSE,RANDOM 343 mg/dL (70-110); POTASSIUM 3.7 mmol/L (3.5-5.1); SODIUM SERUM 130 mmol/L (136-145); UREA NITROGEN, BLOOD 10 mg/dL (7-18)
[2024-01-25 17:57] LABS: ALCOHOL, BLOOD (SERUM) < 3 mg/dL (0-10)
[2024-01-25] MEDS: LORazepam 2 MG TABLET PO ONE (18:13)
[2024-01-25 18:19] LABS: COVID AG,FIA SOURCE NASAL SWAB
[2024-01-25 18:42] LABS: SARS-COV2 (COVID) ANTIGEN,FIA Negative (Negative)
[2024-01-25] MEDS: ZIPRASIDONE MESYLATE 20 MG/VIAL IM ONE (19:47)
== END | disposition still patient (30) ==
LOC: EMS 11:27
DX: F20.9 Schizophrenia, unspecified (principal); E11.9 Type 2 diabetes mellitus without complications; K21.9 Gastro-esophageal reflux disease without esophagitis; I10 Essential (primary) hypertension; Z79.899 Other long term (current) drug therapy; Z20.822 Contact with and (suspected) exposure to COVID-19
CPT/HCPCS: 99285; 87426; 80048; 85025; 36415; 82962; 96372; 80307; G0480; J3486

== ENCOUNTER 2024-01-26 09:40 | Inpatient (IN) | payer MEDICARE, MEDICAID ==
[~2024-01-26] VITALS: Ht 175.3 cm; Wt 90.7 kg
[~2024-01-26 09:40] MED LIST changes: -ZIPRASIDONE MESYLATE 20 MG/VIAL IM ONE
[2024-01-26] MEDS: LORazepam 1 MG TABLET PO ONE (10:08)
[2024-01-26] MEDS: SODIUM CHLORIDE 0.9% 500 ML IV ONE (10:08)
[2024-01-26 10:10] LABS: BASOPHILS % (AUTO) 0.2 % (0.0-2.0); EOSINOPHILS % (AUTO) 0.4 % (1.0-6.0); HEMATOCRIT 42.1 % (41-53); LYMPHOCYTES # (AUTO) 0.8 K/uL (1.0-4.8); LYMPHOCYTES % (AUTO) 10.8 % (22.0-44.0); MEAN CORPUSCULAR HEMOGLOBIN 29.8 pg (26.0-34.0); MEAN CORPUSCULAR HGB CONC 33.3 G/dL (31.0-37.0); MEAN CORPUSCULAR VOLUME 89 fL (80-100); MONOCYTES # (AUTO) 0.8 K/uL (0.1-1.0); MONOCYTES % (AUTO) 11.1 % (2.0-9.0); NEUTROPHILS # (AUTO) 5.4 K/uL (1.8-7.7); NEUTROPHILS % (AUTO) 77.5 % (40.0-70.0); PLATELET COUNT (AUTO) 295 K/uL (150-450); RED BLOOD CELL COUNT(AUTO) 4.71 MIL/uL (4.50-5.90); RED CELL DISTRIBUTION WIDTH 14.2 % (11.5-14.5)
[2024-01-26] MEDS: DIPHENOXYLATE/ATROP 2.5-0.025 MG/5 ML ORAL.SYG LIQUID PO ONE ×2 (10:12→18:48)
[2024-01-26 10:18] LABS: ANION GAP 10 mmol/L (8-16); CALCIUM, TOTAL 9.2 mg/dL (8.8-10.5); CARBON DIOXIDE 28 mmol/L (22-29); CHLORIDE 95 mmol/L (98-107); CREATININE 1.06 mg/dL (0.60-1.30); GLOMERULAR FILTR. RATE CALC > 60 mL/min (>60); GLUCOSE,RANDOM 352 mg/dL (70-110); SODIUM SERUM 133 mmol/L (136-145); UREA NITROGEN, BLOOD 13 mg/dL (7-18)
[2024-01-26 10:50] LABS: APPEARANCE,URINE CLEAR (CLEAR); BILIRUBIN,URINE NEGATIVE (NEGATIVE); COLOR,URINE LIGHT YELLOW (YELLOW); GLUCOSE, URINE (UA) >=1000 mg/dL (NEGATIVE); KETONES,URINE TRACE mg/dL (NEGATIVE); LEUKOCYTE ESTERASE ,URINE NEGATIVE (NEGATIVE); NITRATE,URINE NEGATIVE (NEGATIVE); OCCULT BLOOD,URINE NEGATIVE (NEGATIVE); PH,URINE 5.5 (5.0-8.0); PH,URINE DRUG SCREEN 5.5 (5.0-8.0); PROTEIN,URINE NEGATIVE (NEGATIVE); SPECIFIC GRAVITIY, URINE 1.024 (1.003-1.030); UROBILINOGEN,URINE <=1.0 mg/dL (<=1.0)
[2024-01-26 11:12] LABS: BACTERIA,URINE None Seen /HPF (None Seen); RBC,URINE None Seen /HPF (0-2); SQUAMOUS EPITHELIAL CELL,UR None Seen /LPF (None Seen); WBC,URINE None Seen /HPF (0-5)
[2024-01-26 11:41] LABS: GLUCOMETER DEV NAME(LOC) ERT.5; GLUCOSE,POINT OF CARE 342 MG/DL (70-110)
[2024-01-26 11:42] LABS: ALCOHOL, URINE DRUG SCREEN NEGATIVE (NEGATIVE); AMPHET/METH SCREEN,URINE NEGATIVE (NEGATIVE); BARBITURATE SCREEN, URINE NEGATIVE (NEGATIVE); BENZODIAZEPINES SCREEN,URINE NEGATIVE (NEGATIVE); CANNABINOID SCREEN,URINE NEGATIVE (NEGATIVE); COCAINE SCREEN,URINE NEGATIVE (NEGATIVE); METHADONE SCREEN, URINE NEGATIVE (NEGATIVE); OPIATE SCREEN,URINE NEGATIVE (NEGATIVE); PHENCYCLIDINE SCREEN,URINE NEGATIVE (NEGATIVE)
[2024-01-26] MEDS: MetFORMIN HCL 500 MG TABLET PO ONE (11:43)
[2024-01-26] MEDS: LORazepam 2 MG TABLET PO ONE (14:45)
[2024-01-26] MEDS ORDERED: LORazepam 2 MG/ML VIAL ONE (19:59)
[2024-01-26] MEDS ORDERED: ZIPRASIDONE MESYLATE 20 MG/VIAL IM ONE (19:59)
[2024-01-26] MEDS: ZIPRASIDONE MESYLATE 20 MG/VIAL IM ONE (20:02)
[2024-01-26] MEDS: LORazepam 2 MG/ML VIAL IVP ONE (20:02)
[2024-01-27 03:18] LABS: COVID AG,FIA SOURCE NASAL SWAB
[2024-01-27 03:39] LABS: SARS-COV2 (COVID) ANTIGEN,FIA Negative (Negative)
[2024-01-27 04:42] VITALS: BP 134/94; PULSE 112; RESP 20; TEMP 97.4; O2SAT 98
[2024-01-27] MEDS ORDERED: PETROLATUM,WHITE 28 GM JELLY TP PRN (06:00)
[2024-01-27] MEDS ORDERED: DEXTROSE 50%-WATER 25 GM/50 ML SYRINGE IVP PRN (06:00)
[2024-01-27] MEDS ORDERED: MAGNESIUM HYDROXIDE SUSPENSION 30 ML UDCUP PO PRN (06:00)
[2024-01-27] MEDS ORDERED: GuaiFENesin/D-METHORPHAN [SUGAR-FREE] 200-20MG/10 ML SYRUP UDCUP PO PRN (06:00)
[2024-01-27] MEDS ORDERED: ALBUTEROL SULFATE HFA 90 MCG/PUFF 8 GM INHALER IH PRN (06:00)
[2024-01-27] MEDS ORDERED: CloNIDine HCL 0.1 MG TABLET PO PRN (06:00)
[2024-01-27] MEDS ORDERED: NICOTINE 14 MG/24 HOUR PATCH TD PRN (06:00)
[2024-01-27] MEDS ORDERED: DOCUSATE SODIUM 100 MG CAPSULE PO PRN (06:00)
[2024-01-27] MEDS: LOPERAMIDE HCL 2 MG CAPSULE PO PRN (06:19)
[2024-01-27] MEDS: MetFORMIN HCL 500 MG TABLET PO SCH (06:33)
[2024-01-27] MEDS: INSULIN LISPRO 100 UNITS/ML SQ PRN (06:52)
[2024-01-27 07:11] LABS: GLUCOMETER DEV NAME(LOC) 3E.I 2; GLUCOSE,POINT OF CARE 262 MG/DL (70-110)
[2024-01-27] MEDS: LORazepam 2 MG TABLET PO PRN (08:51)
[2024-01-27] MEDS: HALOPERIDOL 5 MG TABLET PO PRN (08:51)
[2024-01-27 08:56] VITALS: BP 141/85; PULSE 120; RESP 19; TEMP 97.6; O2SAT 95
[2024-01-27] MEDS: LACTOBACILLUS ACIDOPHILUS/BULGARICUS GRANULES PACKET PO SCH (09:00)
[2024-01-27 11:35] LABS: GLUCOMETER DEV NAME(LOC) 3EX.2; GLUCOSE,POINT OF CARE 204 MG/DL (70-110)
[2024-01-27] MEDS: RisperiDONE 2 MG TABLET PO SCH (12:17)
[2024-01-27] MEDS: CITALOPRAM HYDROBROMIDE 20 MG TABLET PO SCH (12:17)
[2024-01-27 16:35] LABS: GLUCOMETER DEV NAME(LOC) 3EX.2; GLUCOSE,POINT OF CARE 228 MG/DL (70-110)
[2024-01-27 20:15] LABS: GLUCOMETER DEV NAME(LOC) 3E.I 2; GLUCOSE,POINT OF CARE 233 MG/DL (70-110)
[2024-01-27] MEDS: TraZODone HCL 150 MG TABLET PO SCH (21:49)
[2024-01-27] MEDS: ZOLPIDEM TARTRATE 10 MG TABLET PO PRN (22:30)
[2024-01-27 23:18] VITALS: RESP 18
[2024-01-28 06:51] LABS: GLUCOMETER DEV NAME(LOC) 3EX.2; GLUCOSE,POINT OF CARE 297 MG/DL (70-110)
[2024-01-28 08:01] LABS: HEMOGLOBIN A1C 8.3 % (3.8-5.6)
[2024-01-28 08:22] LABS: THYROID STIMULATING HORMONE 0.81 uIU/mL (0.36-3.74)
[2024-01-28 09:00] LABS: CHOL/HDL RATIO 3.4 (4.2-7.3)
[2024-01-28 11:15] VITALS: BP 97/63; PULSE 101; RESP 19; TEMP 97.3; O2SAT 97
[2024-01-28 11:26] LABS: GLUCOMETER DEV NAME(LOC) 3EX.2; GLUCOSE,POINT OF CARE 355 MG/DL (70-110)
[2024-01-28 17:56] LABS: GLUCOMETER DEV NAME(LOC) 3EX.2; GLUCOSE,POINT OF CARE 227 MG/DL (70-110)
[2024-01-28 21:35] LABS: GLUCOMETER DEV NAME(LOC) 3E.I 2; GLUCOSE,POINT OF CARE 216 MG/DL (70-110)
[2024-01-28 21:36] VITALS: BP 107/73; PULSE 104; RESP 18; TEMP 97.6; O2SAT 98
[2024-01-29 06:06] LABS: GLUCOMETER DEV NAME(LOC) 3E.I 2; GLUCOSE,POINT OF CARE 281 MG/DL (70-110)
[2024-01-29 08:16] VITALS: BP 138/80; PULSE 85; RESP 18; TEMP 97.6; O2SAT 96
[2024-01-29] MEDS: ETHYL ALCOHOL 62% ANTISEPTIC NASAL SANITIZER 0.6 ML AMPUL NASAL SCH (10:08)
[2024-01-29 11:51] LABS: GLUCOMETER DEV NAME(LOC) 3EX.2; GLUCOSE,POINT OF CARE 470 MG/DL (70-110)
[2024-01-29] MEDS: INSULIN LISPRO 100 UNITS/ML SQ ONE (13:27)
[2024-01-29 17:20] LABS: GLUCOMETER DEV NAME(LOC) 3EX.2; GLUCOSE,POINT OF CARE 147 MG/DL (70-110)
[2024-01-29 20:01] VITALS: BP 103/68; PULSE 110; RESP 18; TEMP 97.1; O2SAT 94
[2024-01-29 20:15] LABS: GLUCOMETER DEV NAME(LOC) 3E.I 2; GLUCOSE,POINT OF CARE 190 MG/DL (70-110)
[2024-01-30 06:11] LABS: GLUCOMETER DEV NAME(LOC) 3E.I 2; GLUCOSE,POINT OF CARE 337 MG/DL (70-110)
[2024-01-30] MEDS: CHLORHEXIDINE GLUCONATE 2% TOWELETTE [2'S/6'S] TP ONE (11:30)
[2024-01-30 11:40] LABS: GLUCOMETER DEV NAME(LOC) 3EX.2; GLUCOSE,POINT OF CARE 220 MG/DL (70-110)
[2024-01-30 15:37] VITALS: BP 115/78; PULSE 110; RESP 17; TEMP 97.5; O2SAT 95
[2024-01-30] MEDS: ETHYL ALCOHOL 62% ANTISEPTIC NASAL SANITIZER 0.6 ML AMPUL NASAL ONE (16:14)
[2024-01-30 16:56] LABS: GLUCOMETER DEV NAME(LOC) 3EX.2; GLUCOSE,POINT OF CARE 236 MG/DL (70-110)
[2024-01-30 20:06] LABS: GLUCOMETER DEV NAME(LOC) 3E.I 2; GLUCOSE,POINT OF CARE 221 MG/DL (70-110)
[2024-01-30 21:14] VITALS: BP 142/89; PULSE 111; RESP 18; TEMP 98.1; O2SAT 95
[2024-01-31 06:06] LABS: GLUCOMETER DEV NAME(LOC) 3E.I 2; GLUCOSE,POINT OF CARE 230 MG/DL (70-110)
[2024-01-31 08:56] VITALS: BP 146/91; PULSE 116; RESP 20; TEMP 98.2
[2024-01-31 12:41] LABS: GLUCOMETER DEV NAME(LOC) 3EX.2; GLUCOSE,POINT OF CARE 269 MG/DL (70-110)
[2024-01-31 14:14] LABS: APPEARANCE,URINE CLEAR (CLEAR); BILIRUBIN,URINE NEGATIVE (NEGATIVE); COLOR,URINE LIGHT YELLOW (YELLOW); GLUCOSE, URINE (UA) >=1000 mg/dL (NEGATIVE); LEUKOCYTE ESTERASE ,URINE NEGATIVE (NEGATIVE); NITRATE,URINE NEGATIVE (NEGATIVE); OCCULT BLOOD,URINE NEGATIVE (NEGATIVE); PH,URINE 5.5 (5.0-8.0); PROTEIN,URINE NEGATIVE (NEGATIVE); SPECIFIC GRAVITIY, URINE 1.026 (1.003-1.030); UROBILINOGEN,URINE <=1.0 mg/dL (<=1.0)
[2024-01-31 14:28] LABS: BACTERIA,URINE None Seen /HPF (None Seen); RBC,URINE None Seen /HPF (0-2); SQUAMOUS EPITHELIAL CELL,UR Few /LPF (None Seen); WBC,URINE None Seen /HPF (0-5)
[2024-01-31 17:45] LABS: GLUCOMETER DEV NAME(LOC) 3EX.2; GLUCOSE,POINT OF CARE 241 MG/DL (70-110)
[2024-01-31 20:11] VITALS: BP 110/75; PULSE 107; RESP 18; TEMP 98.5; O2SAT 96
[2024-01-31] MEDS: TAMSULOSIN HCL 0.4 MG CAPSULE PO SCH (21:16)
[2024-01-31 21:20] LABS: GLUCOMETER DEV NAME(LOC) 3E.I 2; GLUCOSE,POINT OF CARE 247 MG/DL (70-110)
[2024-02-01 08:00] LABS: GLUCOMETER DEV NAME(LOC) 3E.I 2; GLUCOSE,POINT OF CARE 252 MG/DL (70-110)
[2024-02-01 11:36] LABS: GLUCOMETER DEV NAME(LOC) 3E.I 2; GLUCOSE,POINT OF CARE 209 MG/DL (70-110)
[2024-02-01 14:40] VITALS: BP 127/81; PULSE 97; RESP 20; TEMP 98; O2SAT 96
[2024-02-01] MEDS: ACETAMINOPHEN 325 MG TABLET PO PRN (14:42)
[2024-02-01] MEDS: MAG HYDROX/ALUMINUM HYD/SIMETH ES 30 ML SUSPENSION UDCUP PO PRN (16:17)
[2024-02-01] MEDS: ONDANSETRON HCL 4 MG TABLET PO PRN (16:17)
[2024-02-01 16:30] LABS: GLUCOMETER DEV NAME(LOC) 3E.I 2; GLUCOSE,POINT OF CARE 262 MG/DL (70-110)
[2024-02-01 21:15] LABS: GLUCOMETER DEV NAME(LOC) 3E.I 2; GLUCOSE,POINT OF CARE 259 MG/DL (70-110)
[2024-02-01 22:34] VITALS: BP 115/69; PULSE 105; RESP 20; TEMP 98.1; O2SAT 96
[2024-02-02 06:01] LABS: GLUCOMETER DEV NAME(LOC) 3E.I 2; GLUCOSE,POINT OF CARE 314 MG/DL (70-110)
[2024-02-02 08:35] VITALS: BP 116/67; PULSE 98; RESP 16; TEMP 97.5; O2SAT 96
[2024-02-02] MEDS: LORazepam 1 MG TABLET PO PRN (08:56)
[2024-02-02 12:21] LABS: GLUCOMETER DEV NAME(LOC) 3E.I 2; GLUCOSE,POINT OF CARE 242 MG/DL (70-110)
[2024-02-02] MEDS: BENZTROPINE MESYLATE 0.5 MG TABLET PO SCH (17:08)
[2024-02-02 17:16] LABS: GLUCOMETER DEV NAME(LOC) 3E.I 2; GLUCOSE,POINT OF CARE 205 MG/DL (70-110)
[2024-02-02 20:16] VITALS: BP 148/96; PULSE 96; RESP 17; TEMP 97.5; O2SAT 97
[2024-02-02 21:21] LABS: GLUCOMETER DEV NAME(LOC) 3E.I 2; GLUCOSE,POINT OF CARE 261 MG/DL (70-110)
[2024-02-03 06:51] LABS: GLUCOMETER DEV NAME(LOC) 3E.I 2; GLUCOSE,POINT OF CARE 271 MG/DL (70-110)
[2024-02-03 08:15] VITALS: BP 131/71; PULSE 103; RESP 19; TEMP 97.9; O2SAT 96
[2024-02-03 11:41] LABS: GLUCOMETER DEV NAME(LOC) 3E.I 2; GLUCOSE,POINT OF CARE 272 MG/DL (70-110)
[2024-02-03 17:35] LABS: GLUCOMETER DEV NAME(LOC) 3E.I 2; GLUCOSE,POINT OF CARE 193 MG/DL (70-110)
[2024-02-03 20:00] VITALS: BP 135/81; PULSE 98; RESP 19; TEMP 98.3; O2SAT 98
[2024-02-03 21:01] LABS: GLUCOMETER DEV NAME(LOC) 3E.I 2; GLUCOSE,POINT OF CARE 253 MG/DL (70-110)
[2024-02-04 06:35] LABS: GLUCOMETER DEV NAME(LOC) 3E.I 2; GLUCOSE,POINT OF CARE 224 MG/DL (70-110)
[2024-02-04 08:31] VITALS: BP 150/73; PULSE 110; RESP 18; TEMP 97.6; O2SAT 97
[2024-02-04 11:31] LABS: GLUCOMETER DEV NAME(LOC) 3EX.2; GLUCOSE,POINT OF CARE 273 MG/DL (70-110)
[2024-02-04] MEDS: LACTOBACILLUS ACIDOPHILUS/BULGARICUS GRANULES PACKET PO SCH (12:49)
[2024-02-04 13:05] LABS: ANION GAP 11 mmol/L (8-16); CALCIUM, TOTAL 8.7 mg/dL (8.8-10.5); CARBON DIOXIDE 24 mmol/L (22-29); CHLORIDE 98 mmol/L (98-107); CREATININE 1.01 mg/dL (0.60-1.30); GLOMERULAR FILTR. RATE CALC > 60 mL/min (>60); GLUCOSE,RANDOM 221 mg/dL (70-110); POTASSIUM 4.2 mmol/L (3.5-5.1); SODIUM SERUM 133 mmol/L (136-145); UREA NITROGEN, BLOOD 7 mg/dL (7-18)
[2024-02-04 15:04] VITALS: BP 142/84; PULSE 96; RESP 18
[2024-02-04 16:08] VITALS: RESP 18
[2024-02-04 17:01] LABS: GLUCOMETER DEV NAME(LOC) 3EX.2; GLUCOSE,POINT OF CARE 281 MG/DL (70-110)
[2024-02-04 20:00] VITALS: BP 136/81; PULSE 112; RESP 18; TEMP 97.2
[2024-02-04 20:30] LABS: GLUCOMETER DEV NAME(LOC) 3E.I 2; GLUCOSE,POINT OF CARE 248 MG/DL (70-110)
[2024-02-05 00:10] VITALS: BP 127/82; PULSE 113; RESP 18; TEMP 98.2; O2SAT 97
[2024-02-05 06:25] LABS: GLUCOMETER DEV NAME(LOC) 3E.I 2; GLUCOSE,POINT OF CARE 213 MG/DL (70-110)
[2024-02-05 07:44] LABS: BASOPHILS % (AUTO) 0.2 % (0.0-2.0); EOSINOPHILS % (AUTO) 1.2 % (1.0-6.0); HEMATOCRIT 41.3 % (41-53); LYMPHOCYTES # (AUTO) 1.6 K/uL (1.0-4.8); LYMPHOCYTES % (AUTO) 22.4 % (22.0-44.0); MEAN CORPUSCULAR HEMOGLOBIN 30.4 pg (26.0-34.0); MEAN CORPUSCULAR HGB CONC 33.9 G/dL (31.0-37.0); MEAN CORPUSCULAR VOLUME 90 fL (80-100); MONOCYTES # (AUTO) 0.7 K/uL (0.1-1.0); MONOCYTES % (AUTO) 9.2 % (2.0-9.0); NEUTROPHILS # (AUTO) 4.7 K/uL (1.8-7.7); PLATELET COUNT (AUTO) 318 K/uL (150-450); RED CELL DISTRIBUTION WIDTH 14.7 % (11.5-14.5)
[2024-02-05] MEDS: IBUPROFEN 400 MG TABLET PO PRN (10:48)
[2024-02-05 10:50] VITALS: BP 139/90; PULSE 109; RESP 18; TEMP 98.5; O2SAT 97
[2024-02-05 11:41] LABS: GLUCOMETER DEV NAME(LOC) 3EX.2; GLUCOSE,POINT OF CARE 285 MG/DL (70-110)
[2024-02-05 17:10] LABS: GLUCOMETER DEV NAME(LOC) 3EX.2; GLUCOSE,POINT OF CARE 266 MG/DL (70-110)
[2024-02-05 20:21] LABS: GLUCOMETER DEV NAME(LOC) 3E.I 2; GLUCOSE,POINT OF CARE 156 MG/DL (70-110)
[2024-02-05 20:22] VITALS: BP 132/81; PULSE 113; RESP 18; TEMP 97.5; O2SAT 98
[2024-02-06 05:51] LABS: GLUCOMETER DEV NAME(LOC) 3E.I 2; GLUCOSE,POINT OF CARE 315 MG/DL (70-110)
[2024-02-06 09:31] VITALS: BP 140/90; PULSE 112; RESP 18; TEMP 98.2; O2SAT 96
[2024-02-06 11:45] LABS: GLUCOMETER DEV NAME(LOC) 3EX.2; GLUCOSE,POINT OF CARE 240 MG/DL (70-110)
[2024-02-06 12:50] LABS: ANION GAP 8 mmol/L (8-16); CALCIUM, TOTAL 8.8 mg/dL (8.8-10.5); CARBON DIOXIDE 29 mmol/L (22-29); CHLORIDE 97 mmol/L (98-107); CREATININE 1.01 mg/dL (0.60-1.30); GLOMERULAR FILTR. RATE CALC > 60 mL/min (>60); GLUCOSE,RANDOM 252 mg/dL (70-110); POTASSIUM 4.1 mmol/L (3.5-5.1); SODIUM SERUM 134 mmol/L (136-145); UREA NITROGEN, BLOOD 5 mg/dL (7-18)
[2024-02-06 17:50] LABS: GLUCOMETER DEV NAME(LOC) 3EX.2; GLUCOSE,POINT OF CARE 293 MG/DL (70-110)
[2024-02-06 20:30] LABS: GLUCOMETER DEV NAME(LOC) 3E.I 2; GLUCOSE,POINT OF CARE 239 MG/DL (70-110)
[2024-02-06 21:16] VITALS: BP 137/86; PULSE 98; RESP 19; TEMP 97.1; O2SAT 97
[2024-02-07 06:05] LABS: GLUCOMETER DEV NAME(LOC) 3E.I 2; GLUCOSE,POINT OF CARE 241 MG/DL (70-110)
[2024-02-07 11:41] LABS: GLUCOMETER DEV NAME(LOC) 3EX.2; GLUCOSE,POINT OF CARE 228 MG/DL (70-110)
[2024-02-07 15:04] VITALS: BP 131/78; PULSE 78; RESP 18; TEMP 97.5; O2SAT 98
[2024-02-07 17:01] LABS: GLUCOMETER DEV NAME(LOC) 3EX.2; GLUCOSE,POINT OF CARE 271 MG/DL (70-110)
[2024-02-07 20:15] LABS: GLUCOMETER DEV NAME(LOC) 3E.I 2; GLUCOSE,POINT OF CARE 192 MG/DL (70-110)
[2024-02-07 20:41] VITALS: BP 150/90; PULSE 86; RESP 18; TEMP 98.1; O2SAT 98
[2024-02-08 05:50] LABS: GLUCOMETER DEV NAME(LOC) 3E.I 2; GLUCOSE,POINT OF CARE 215 MG/DL (70-110)
[2024-02-08] MEDS: MetFORMIN HCL 500 MG TABLET PO SCH (06:47)
[2024-02-08 08:47] VITALS: BP 132/80; PULSE 110; RESP 18; TEMP 97.3
[2024-02-08 09:10] LABS: ANION GAP 11 mmol/L (8-16); CALCIUM, TOTAL 8.9 mg/dL (8.8-10.5); CARBON DIOXIDE 25 mmol/L (22-29); CHLORIDE 98 mmol/L (98-107); CREATININE 1.06 mg/dL (0.60-1.30); GLOMERULAR FILTR. RATE CALC > 60 mL/min (>60); GLUCOSE,RANDOM 241 mg/dL (70-110); POTASSIUM 4.4 mmol/L (3.5-5.1); SODIUM SERUM 134 mmol/L (136-145); UREA NITROGEN, BLOOD 6 mg/dL (7-18)
[2024-02-08 11:35] LABS: GLUCOMETER DEV NAME(LOC) 3EX.2; GLUCOSE,POINT OF CARE 217 MG/DL (70-110)
[2024-02-08 12:46] VITALS: BP 132/80; PULSE 110; RESP 18; TEMP 97.3; O2SAT 98
[2024-02-08 17:45] LABS: GLUCOMETER DEV NAME(LOC) 3EX.2; GLUCOSE,POINT OF CARE 313 MG/DL (70-110)
[2024-02-08 20:10] LABS: GLUCOMETER DEV NAME(LOC) 3E.I 2; GLUCOSE,POINT OF CARE 166 MG/DL (70-110)
[2024-02-08 20:29] VITALS: BP 129/76; PULSE 110; RESP 17; TEMP 97.8; O2SAT 98
[2024-02-08 21:00] VITALS: BP 134/81; PULSE 94; RESP 19; TEMP 98.1; O2SAT 97
[2024-02-08 22:04] VITALS: RESP 18
[2024-02-09 06:21] LABS: GLUCOMETER DEV NAME(LOC) 3E.I 2; GLUCOSE,POINT OF CARE 249 MG/DL (70-110)
[2024-02-09 09:09] VITALS: BP 129/91; PULSE 125; RESP 18; TEMP 97.3; O2SAT 99
[2024-02-09 11:56] LABS: GLUCOMETER DEV NAME(LOC) 3E.I 2; GLUCOSE,POINT OF CARE 201 MG/DL (70-110)
[2024-02-09 12:36] VITALS: RESP 17; TEMP 98
[2024-02-09 13:56] VITALS: RESP 17; TEMP 98
[2024-02-09 17:43] LABS: BASOPHILS % (AUTO) 0.6 % (0.0-2.0); EOSINOPHILS % (AUTO) 1.3 % (1.0-6.0); HEMATOCRIT 41.1 % (41-53); HEMOGLOBIN 13.7 g/dL (13.5-17.5); LYMPHOCYTES # (AUTO) 1.6 K/uL (1.0-4.8); LYMPHOCYTES % (AUTO) 23.3 % (22.0-44.0); MEAN CORPUSCULAR HEMOGLOBIN 30.2 pg (26.0-34.0); MEAN CORPUSCULAR HGB CONC 33.3 G/dL (31.0-37.0); MEAN CORPUSCULAR VOLUME 91 fL (80-100); MONOCYTES # (AUTO) 0.7 K/uL (0.1-1.0); MONOCYTES % (AUTO) 10.4 % (2.0-9.0); NEUTROPHILS # (AUTO) 4.4 K/uL (1.8-7.7); NEUTROPHILS % (AUTO) 64.4 % (40.0-70.0); PLATELET COUNT (AUTO) 306 K/uL (150-450); RED BLOOD CELL COUNT(AUTO) 4.54 MIL/uL (4.50-5.90); RED CELL DISTRIBUTION WIDTH 15.1 % (11.5-14.5); WHITE BLOOD COUNT (AUTO) 6.8 K/uL (4.5-11.0)
[2024-02-09 17:44] LABS: APPEARANCE,URINE CLEAR (CLEAR); BILIRUBIN,URINE NEGATIVE (NEGATIVE); COLOR,URINE COLORLESS (YELLOW); GLUCOSE, URINE (UA) TRACE mg/dL (NEGATIVE); KETONES,URINE NEGATIVE (NEGATIVE); LEUKOCYTE ESTERASE ,URINE NEGATIVE (NEGATIVE); NITRATE,URINE NEGATIVE (NEGATIVE); OCCULT BLOOD,URINE NEGATIVE (NEGATIVE); PH,URINE 7.5 (5.0-8.0); PROTEIN,URINE NEGATIVE (NEGATIVE); SPECIFIC GRAVITIY, URINE 1.004 (1.003-1.030); UROBILINOGEN,URINE <=1.0 mg/dL (<=1.0)
[2024-02-09 17:46] LABS: GLUCOMETER DEV NAME(LOC) 3E.I 2; GLUCOSE,POINT OF CARE 209 MG/DL (70-110)
[2024-02-09 17:56] LABS: BACTERIA,URINE None Seen /HPF (None Seen); RBC,URINE None Seen /HPF (0-2); WBC,URINE None Seen /HPF (0-5)
[2024-02-09 18:02] LABS: ANION GAP 7 mmol/L (8-16); CALCIUM, TOTAL 9.2 mg/dL (8.8-10.5); CARBON DIOXIDE 28 mmol/L (22-29); CHLORIDE 95 mmol/L (98-107); CREATININE 1.05 mg/dL (0.60-1.30); GLOMERULAR FILTR. RATE CALC > 60 mL/min (>60); GLUCOSE,RANDOM 214 mg/dL (70-110); LIPASE 72 U/L (16-77); POTASSIUM 4.4 mmol/L (3.5-5.1); SODIUM SERUM 130 mmol/L (136-145); UREA NITROGEN, BLOOD 10 mg/dL (7-18)
[2024-02-09 20:26] LABS: GLUCOMETER DEV NAME(LOC) 3E.I 2; GLUCOSE,POINT OF CARE 152 MG/DL (70-110)
[2024-02-09 20:46] VITALS: BP 141/93; PULSE 109; RESP 18; TEMP 97.3; O2SAT 97
[2024-02-10 05:30] LABS: GLUCOMETER DEV NAME(LOC) 3E.I 2; GLUCOSE,POINT OF CARE 234 MG/DL (70-110)
[2024-02-10] MEDS ORDERED: IOHEXOL 9 MG/ML 500 ML BOTTLE ONE ×2 (09:31)
[2024-02-10 09:56] VITALS: BP 131/85; PULSE 97; RESP 18; TEMP 97.5; O2SAT 100
[2024-02-10 12:00] LABS: GLUCOMETER DEV NAME(LOC) 3E.I 2; GLUCOSE,POINT OF CARE 214 MG/DL (70-110)
[2024-02-10 15:07] VITALS: BP 138/82; PULSE 81; RESP 20; TEMP 98; O2SAT 100
[2024-02-10 16:07] VITALS: BP 128/78; PULSE 81; RESP 17; TEMP 98
[2024-02-10 17:31] LABS: GLUCOMETER DEV NAME(LOC) 3E.I 2; GLUCOSE,POINT OF CARE 260 MG/DL (70-110)
[2024-02-10 20:11] LABS: GLUCOMETER DEV NAME(LOC) 3E.I 2; GLUCOSE,POINT OF CARE 99 MG/DL (70-110)
[2024-02-10 20:44] VITALS: BP 133/86; PULSE 93; RESP 19; TEMP 97.9; O2SAT 98
[2024-02-11 06:00] LABS: GLUCOMETER DEV NAME(LOC) 3E.I 2; GLUCOSE,POINT OF CARE 208 MG/DL (70-110)
[2024-02-11 09:40] VITALS: BP 119/77; PULSE 106; RESP 19; TEMP 97.6; O2SAT 98
[2024-02-11 09:46] VITALS: BP 119/77; PULSE 106; RESP 19; TEMP 97.6; O2SAT 98
[2024-02-11 11:56] LABS: GLUCOMETER DEV NAME(LOC) 3E.I 2; GLUCOSE,POINT OF CARE 244 MG/DL (70-110)
[2024-02-11 17:31] LABS: GLUCOMETER DEV NAME(LOC) 3E.I 2; GLUCOSE,POINT OF CARE 231 MG/DL (70-110)
[2024-02-11 21:03] VITALS: BP 140/93; PULSE 96; RESP 18; TEMP 97.6; O2SAT 97
[2024-02-11 21:33] LABS: GLUCOMETER DEV NAME(LOC) 3E.I 2; GLUCOSE,POINT OF CARE 167 MG/DL (70-110)
[2024-02-12] VITALS (14 sets, daily range): BP systolic 99–150; BP diastolic 57–88; PULSE 76–112; RESP 18; TEMP 97.1–98.4; O2SAT 97–100
[2024-02-12 06:30] LABS: GLUCOMETER DEV NAME(LOC) 3E.I 2; GLUCOSE,POINT OF CARE 207 MG/DL (70-110)
[2024-02-12 11:55] LABS: GLUCOMETER DEV NAME(LOC) 3E.I 2; GLUCOSE,POINT OF CARE 205 MG/DL (70-110)
[2024-02-12 16:41] LABS: GLUCOMETER DEV NAME(LOC) 3E.I 2; GLUCOSE,POINT OF CARE 221 MG/DL (70-110)
[2024-02-12] MEDS: DIAZEPAM 5 MG TABLET PO PRN (21:38)
[2024-02-12 21:41] LABS: GLUCOMETER DEV NAME(LOC) 3E.I 2; GLUCOSE,POINT OF CARE 223 MG/DL (70-110)
[2024-02-13] VITALS (7 sets, daily range): BP systolic 104–128; BP diastolic 58–79; PULSE 80–115; RESP 17–20; TEMP 97.1–98.1; O2SAT 96–99
[2024-02-13 05:51] LABS: GLUCOMETER DEV NAME(LOC) 3E.I 2; GLUCOSE,POINT OF CARE 270 MG/DL (70-110)
[2024-02-13] MEDS ORDERED: DIAZEPAM 10 MG TABLET PO PRN (07:00)
[2024-02-13] MEDS: DIAZEPAM 10 MG TABLET PO SCH (08:22)
[2024-02-13] MEDS ORDERED: DIAZEPAM 5 MG TABLET PO PRN (09:39)
[2024-02-13 12:06] LABS: GLUCOMETER DEV NAME(LOC) 3EX.2; GLUCOSE,POINT OF CARE 211 MG/DL (70-110)
[2024-02-13] MEDS: DIAZEPAM 5 MG TABLET PO SCH (13:04)
[2024-02-13 17:41] LABS: GLUCOMETER DEV NAME(LOC) 3EX.2; GLUCOSE,POINT OF CARE 266 MG/DL (70-110)
[2024-02-13 21:00] LABS: GLUCOMETER DEV NAME(LOC) 3E.I 2; GLUCOSE,POINT OF CARE 158 MG/DL (70-110)
[2024-02-14] VITALS (10 sets, daily range): BP systolic 115–140; BP diastolic 70–86; PULSE 96–108; RESP 16–19; TEMP 97–98; O2SAT 96–100
[2024-02-14 05:56] LABS: GLUCOMETER DEV NAME(LOC) 3E.I 2; GLUCOSE,POINT OF CARE 172 MG/DL (70-110)
[2024-02-14 11:55] LABS: GLUCOMETER DEV NAME(LOC) 3EX.2; GLUCOSE,POINT OF CARE 196 MG/DL (70-110)
[2024-02-14 17:50] LABS: GLUCOMETER DEV NAME(LOC) 3EX.2; GLUCOSE,POINT OF CARE 232 MG/DL (70-110)
[2024-02-14 20:26] LABS: GLUCOMETER DEV NAME(LOC) 3E.I 2; GLUCOSE,POINT OF CARE 143 MG/DL (70-110)
[2024-02-15 06:20] LABS: GLUCOMETER DEV NAME(LOC) 3E.I 2; GLUCOSE,POINT OF CARE 200 MG/DL (70-110)
[2024-02-15] MEDS ORDERED: DIAZEPAM 5 MG TABLET PO PRN (07:00)
[2024-02-15] MEDS: DIAZEPAM 5 MG TABLET PO SCH (09:02)
[2024-02-15 09:51] VITALS: BP 124/84; PULSE 86; RESP 19; TEMP 97.6; O2SAT 98
[2024-02-15 10:18] VITALS: BP 124/84; PULSE 86; RESP 19; TEMP 97.6; O2SAT 98
[2024-02-15 12:16] LABS: GLUCOMETER DEV NAME(LOC) 3E.I 2; GLUCOSE,POINT OF CARE 171 MG/DL (70-110)
[2024-02-15 17:51] LABS: GLUCOMETER DEV NAME(LOC) 3E.I 2; GLUCOSE,POINT OF CARE 200 MG/DL (70-110)
[2024-02-15 20:35] VITALS: BP 135/93; PULSE 99; RESP 18; TEMP 97.8; O2SAT 99
[2024-02-15 20:35] LABS: GLUCOMETER DEV NAME(LOC) 3E.I 2; GLUCOSE,POINT OF CARE 141 MG/DL (70-110)
[2024-02-15 21:35] VITALS: BP 135/93; PULSE 99; RESP 18; TEMP 97.8; O2SAT 99
[2024-02-16 05:46] LABS: GLUCOMETER DEV NAME(LOC) 3E.I 2; GLUCOSE,POINT OF CARE 178 MG/DL (70-110)
[2024-02-16 07:45] LABS: ANION GAP 13 mmol/L (8-16); CARBON DIOXIDE 24 mmol/L (22-29); CHLORIDE 97 mmol/L (98-107); CREATININE 1.05 mg/dL (0.60-1.30); GLOMERULAR FILTR. RATE CALC > 60 mL/min (>60); GLUCOSE,RANDOM 87 mg/dL (70-110); SODIUM SERUM 134 mmol/L (136-145); UREA NITROGEN, BLOOD 11 mg/dL (7-18)
[2024-02-16 09:23] VITALS: BP 116/74; PULSE 71; RESP 17; TEMP 97.5; O2SAT 97
[2024-02-16] MEDS: DIAZEPAM 5 MG TABLET PO PRN (10:15)
[2024-02-16 11:50] LABS: GLUCOMETER DEV NAME(LOC) 3E.I 2; GLUCOSE,POINT OF CARE 198 MG/DL (70-110)
[2024-02-16 11:51] VITALS: BP 116/74; PULSE 71; RESP 17; TEMP 97.5; O2SAT 97
[2024-02-16 16:51] LABS: GLUCOMETER DEV NAME(LOC) 3E.I 2; GLUCOSE,POINT OF CARE 198 MG/DL (70-110)
[2024-02-16 21:59] VITALS: BP 155/85; PULSE 111; RESP 18; TEMP 98.6; O2SAT 97
[2024-02-16 22:01] LABS: GLUCOMETER DEV NAME(LOC) 3E.I 2; GLUCOSE,POINT OF CARE 191 MG/DL (70-110)
[2024-02-17 07:02] LABS: GLUCOMETER DEV NAME(LOC) 3E.I 2; GLUCOSE,POINT OF CARE 146 MG/DL (70-110)
[2024-02-17 08:01] VITALS: BP 98/60; PULSE 92; RESP 18; TEMP 98.1; O2SAT 96
[2024-02-17 11:26] LABS: GLUCOMETER DEV NAME(LOC) 3E.I 2; GLUCOSE,POINT OF CARE 148 MG/DL (70-110)
[2024-02-17 17:16] LABS: GLUCOMETER DEV NAME(LOC) 3E.I 2; GLUCOSE,POINT OF CARE 200 MG/DL (70-110)
[2024-02-17 20:15] LABS: GLUCOMETER DEV NAME(LOC) 3E.I 2; GLUCOSE,POINT OF CARE 113 MG/DL (70-110)
[2024-02-17 20:22] VITALS: BP 126/70; PULSE 90; RESP 18; TEMP 98
[2024-02-17 20:52] VITALS: BP 126/70; PULSE 90; RESP 18; TEMP 98
[2024-02-18 07:15] LABS: GLUCOMETER DEV NAME(LOC) 3E.I 2; GLUCOSE,POINT OF CARE 166 MG/DL (70-110)
[2024-02-18 09:38] VITALS: BP 10/69; PULSE 84; RESP 18; TEMP 97.5; O2SAT 96
[2024-02-18 11:35] LABS: GLUCOMETER DEV NAME(LOC) 3EX.2; GLUCOSE,POINT OF CARE 191 MG/DL (70-110)
[2024-02-18 16:55] LABS: GLUCOMETER DEV NAME(LOC) 3EX.2; GLUCOSE,POINT OF CARE 213 MG/DL (70-110)
[2024-02-18 20:11] LABS: GLUCOMETER DEV NAME(LOC) 3E.I 2; GLUCOSE,POINT OF CARE 137 MG/DL (70-110)
[2024-02-18 20:34] VITALS: BP 127/75; PULSE 81; RESP 18; TEMP 97.4
[2024-02-19 06:25] LABS: GLUCOMETER DEV NAME(LOC) 3E.I 2; GLUCOSE,POINT OF CARE 157 MG/DL (70-110)
[2024-02-19 09:00] VITALS: BP 123/75; PULSE 89; RESP 18; TEMP 97.8; O2SAT 99
[2024-02-19] MEDS ORDERED: CITA-144 PO (10:38)
[2024-02-19] MEDS ORDERED: TRAZ-283 PO (10:38)
[2024-02-19] MEDS ORDERED: ACID1GRA PO (10:38)
[2024-02-19] MEDS ORDERED: METF-1211 PO (10:38)
[2024-02-19] MEDS ORDERED: TAMS0.4C94 PO (10:38)
[2024-02-19] MEDS ORDERED: RISP-32 PO (10:38)
[2024-02-19] MEDS ORDERED: BENZ0.5T52 PO (10:38)
[2024-02-19 11:40] LABS: GLUCOMETER DEV NAME(LOC) 3EX.2; GLUCOSE,POINT OF CARE 168 MG/DL (70-110)
[2024-02-19 17:01] LABS: GLUCOMETER DEV NAME(LOC) 3EX.2; GLUCOSE,POINT OF CARE 199 MG/DL (70-110)
[2024-02-19 17:18] VITALS: BP 119/70; PULSE 76; RESP 19; TEMP 97.9; O2SAT 98
[2024-02-19 20:46] LABS: GLUCOMETER DEV NAME(LOC) 3E.I 2; GLUCOSE,POINT OF CARE 204 MG/DL (70-110)
[2024-02-19 20:54] VITALS: BP 124/85; PULSE 89; RESP 18; TEMP 97.9; O2SAT 97
[2024-02-20 06:26] LABS: GLUCOMETER DEV NAME(LOC) 3E.I 2; GLUCOSE,POINT OF CARE 160 MG/DL (70-110)
[2024-02-20 12:05] LABS: GLUCOMETER DEV NAME(LOC) 3EX.2; GLUCOSE,POINT OF CARE 198 MG/DL (70-110)
[2024-02-20 12:35] VITALS: BP 129/91; PULSE 92; RESP 19; TEMP 97.8; O2SAT 97
[2024-02-20 17:01] LABS: GLUCOMETER DEV NAME(LOC) 3EX.2; GLUCOSE,POINT OF CARE 208 MG/DL (70-110)
[2024-02-20 20:45] LABS: GLUCOMETER DEV NAME(LOC) 3E.I 2; GLUCOSE,POINT OF CARE 170 MG/DL (70-110)
[2024-02-20 20:52] VITALS: BP 127/78; PULSE 98; RESP 18; TEMP 97.9; O2SAT 98
[2024-02-21 05:56] LABS: GLUCOMETER DEV NAME(LOC) 3E.I 2; GLUCOSE,POINT OF CARE 161 MG/DL (70-110)
[2024-02-21 11:41] LABS: GLUCOMETER DEV NAME(LOC) 3EX.2; GLUCOSE,POINT OF CARE 162 MG/DL (70-110)
[2024-02-21 12:26] VITALS: BP 109/75; PULSE 96; RESP 18; TEMP 97.6; O2SAT 97
== END 2024-02-21 17:08 | DRG 885 ==
LOC: EMS 09:40 → 3EX 01-27 04:17 → EMS 01-27 04:50 → 3EX 01-27 16:33
PROVIDERS: ADMIT Psychiatry & Neurology Child & Adolescent Psychiatry; ATTEND Psychiatry & Neurology Child & Adolescent Psychiatry
PROC: GZ58ZZZ Individual Psychotherapy, Cognitive-Behavioral (ICD-10-PCS; 2024-01-28)
PROC: GZHZZZZ Group Psychotherapy (ICD-10-PCS; principal; 2024-02-06)
DX: F25.1 Schizoaffective disorder, depressive type (principal); E87.1 Hypo-osmolality and hyponatremia; R45.851 Suicidal ideations; R19.7 Diarrhea, unspecified; I10 Essential (primary) hypertension; G47.00 Insomnia, unspecified; K59.00 Constipation, unspecified; Z20.822 Contact with and (suspected) exposure to COVID-19; F41.9 Anxiety disorder, unspecified; R25.1 Tremor, unspecified; F15.90 Other stimulant use, unspecified, uncomplicated; G89.29 Other chronic pain; K76.0 Fatty (change of) liver, not elsewhere classified; E78.5 Hyperlipidemia, unspecified; F32.A Depression, unspecified; E11.9 Type 2 diabetes mellitus without complications; N40.0 Benign prostatic hyperplasia without lower urinary tract symptoms; R10.9 Unspecified abdominal pain; Z79.84 Long term (current) use of oral hypoglycemic drugs; Z98.1 Arthrodesis status; Z79.899 Other long term (current) drug therapy
CPT/HCPCS: 73503; 74176; 80048; 80061; 80307; 81001; 81003; 82140; 82962; 83036; 83690; 84153; 84443; 85025; 87045; 87081; 87147; 96361; 96372; 96374; 97110; 97112; 97116; 97163; 97530; 99285; G0378; G0480; J1815; J2060; J3486; J7040; Q0162; 36415-L1; 36415-TC

== ENCOUNTER 2024-03-31 15:16 | Emergency (ER) | payer MEDICARE, OTHER ==
[~2024-03-31] VITALS: Ht 180.3 cm; Wt 95.5 kg
[~2024-03-31 15:16] MED LIST changes: +ACID1GRA PO; +BENZ0.5T52 PO; +TAMS0.4C94 PO
[2024-03-31 15:29] VITALS: TEMP 98.7
[2024-03-31 16:35] LABS: APPEARANCE,URINE CLEAR (CLEAR); BILIRUBIN,URINE NEGATIVE (NEGATIVE); COLOR,URINE COLORLESS (YELLOW); GLUCOSE, URINE (UA) NEGATIVE (NEGATIVE); KETONES,URINE NEGATIVE (NEGATIVE); LEUKOCYTE ESTERASE ,URINE NEGATIVE (NEGATIVE); NITRATE,URINE NEGATIVE (NEGATIVE); OCCULT BLOOD,URINE NEGATIVE (NEGATIVE); PH,URINE 5.5 (5.0-8.0); PH,URINE DRUG SCREEN 5.5 (5.0-8.0); PROTEIN,URINE NEGATIVE (NEGATIVE); SPECIFIC GRAVITIY, URINE 1.005 (1.003-1.030); UROBILINOGEN,URINE <=1.0 mg/dL (<=1.0)
[2024-03-31 16:43] LABS: ALCOHOL, URINE DRUG SCREEN NEGATIVE (NEGATIVE); AMPHET/METH SCREEN,URINE NEGATIVE (NEGATIVE); BARBITURATE SCREEN, URINE NEGATIVE (NEGATIVE); BENZODIAZEPINES SCREEN,URINE NEGATIVE (NEGATIVE); CANNABINOID SCREEN,URINE NEGATIVE (NEGATIVE); COCAINE SCREEN,URINE NEGATIVE (NEGATIVE); METHADONE SCREEN, URINE NEGATIVE (NEGATIVE); OPIATE SCREEN,URINE NEGATIVE (NEGATIVE); PHENCYCLIDINE SCREEN,URINE NEGATIVE (NEGATIVE)
[2024-03-31] MEDS ORDERED: HYDR-4584 PO (17:04)
[2024-03-31] MEDS ORDERED: SEMA3TAB4 PO (17:04)
[2024-03-31] MEDS ORDERED: GLIP5TAB15 PO (17:04)
[2024-03-31] MEDS ORDERED: SERT-439 PO (17:04)
[2024-03-31] MEDS ORDERED: BUSP15TA3 PO (17:04)
[2024-03-31] MEDS ORDERED: PALI6TAB15 PO (17:04)
[2024-03-31] MEDS ORDERED: DIVA-112 PO (17:04)
[2024-03-31] MEDS: LORazepam 2 MG TABLET PO ONE (17:05)
[2024-03-31 17:15] LABS: BASOPHILS % (AUTO) 0.6 % (0.0-2.0); EOSINOPHILS % (AUTO) 1.6 % (1.0-6.0); HEMATOCRIT 41.6 % (41-53); HEMOGLOBIN 14.2 g/dL (13.5-17.5); LYMPHOCYTES # (AUTO) 1.6 K/uL (1.0-4.8); LYMPHOCYTES % (AUTO) 17.1 % (22.0-44.0); MEAN CORPUSCULAR HEMOGLOBIN 31.3 pg (26.0-34.0); MEAN CORPUSCULAR HGB CONC 34.2 G/dL (31.0-37.0); MEAN CORPUSCULAR VOLUME 91 fL (80-100); MONOCYTES # (AUTO) 1.1 K/uL (0.1-1.0); MONOCYTES % (AUTO) 11.7 % (2.0-9.0); NEUTROPHILS # (AUTO) 6.6 K/uL (1.8-7.7); PLATELET COUNT (AUTO) 246 K/uL (150-450); RED BLOOD CELL COUNT(AUTO) 4.55 MIL/uL (4.50-5.90); RED CELL DISTRIBUTION WIDTH 14.3 % (11.5-14.5); WHITE BLOOD COUNT (AUTO) 9.6 K/uL (4.5-11.0)
[2024-03-31 17:25] LABS: ANION GAP 15 mmol/L (8-16); CARBON DIOXIDE 22 mmol/L (22-29); CHLORIDE 97 mmol/L (98-107); CREATININE 1.03 mg/dL (0.60-1.30); GLOMERULAR FILTR. RATE CALC > 60 mL/min (>60); GLUCOSE,RANDOM 156 mg/dL (70-110); POTASSIUM 4.1 mmol/L (3.5-5.1); SODIUM SERUM 134 mmol/L (136-145); UREA NITROGEN, BLOOD 14 mg/dL (7-18)
[2024-03-31 17:33] VITALS: BP 125/84; PULSE 101; RESP 19; O2SAT 97
== END 2024-03-31 18:11 | disposition home or self-care (01) ==
LOC: EMS 15:16
DX: F41.9 Anxiety disorder, unspecified (principal); E11.9 Type 2 diabetes mellitus without complications
CPT/HCPCS: 80048; 80307; 81003; 82962; 85025; 99283

== ENCOUNTER 2024-04-02 05:13 | Emergency (ER) | payer MEDICARE, OTHER ==
[~2024-04-02] VITALS: Ht 185.4 cm; Wt 103.6 kg
[~2024-04-02 05:13] MED LIST changes: +BUSP15TA3 PO; -CITA-144 PO; +DIVA-112 PO; +GLIP5TAB15 PO; +HYDR-4584 PO; +PALI6TAB15 PO; -RISP-32 PO; +SEMA3TAB4 PO; +SERT-439 PO
[2024-04-02 05:40] VITALS: BP 125/83; PULSE 107; RESP 16; TEMP 98.1; O2SAT 98
[2024-04-02] MEDS: LORazepam 2 MG TABLET PO ONE (06:24)
== END 2024-04-02 06:33 | disposition home or self-care (01) ==
LOC: EMS 05:14
DX: F41.9 Anxiety disorder, unspecified (principal); F32.A Depression, unspecified; E11.9 Type 2 diabetes mellitus without complications; G89.29 Other chronic pain; Z98.890 Other specified postprocedural states
CPT/HCPCS: 99283

== ENCOUNTER 2024-04-06 02:22 | Emergency (ER) | payer MEDICARE, OTHER ==
[~2024-04-06] VITALS: Ht 175.3 cm; Wt 85.0 kg
[2024-04-06 02:26] VITALS: BP 120/70; PULSE 88; RESP 20; TEMP 98; O2SAT 98
[2024-04-06] MEDS: ACETAMINOPHEN 325 MG TABLET PO ONE (02:52)
[2024-04-06] MEDS: LORazepam 1 MG TABLET PO ONE (02:52)
== END 2024-04-06 04:35 | disposition home or self-care (01) ==
LOC: EMS 02:22
DX: S70.01XA Contusion of right hip, initial encounter (principal); G89.29 Other chronic pain; F41.9 Anxiety disorder, unspecified; F32.A Depression, unspecified; E11.9 Type 2 diabetes mellitus without complications; Z98.890 Other specified postprocedural states; W06.XXXA Fall from bed, initial encounter; Y93.89 Activity, other specified; Y92.89 Other specified places as the place of occurrence of the external cause; Y99.8 Other external cause status
CPT/HCPCS: 73521; 99283

== ENCOUNTER 2024-07-04 05:28 | Emergency (ER) | payer MEDICARE, OTHER ==
[~2024-07-04] VITALS: Ht 180.3 cm; Wt 106.8 kg
[2024-07-04 05:40] VITALS: TEMP 98.2
[2024-07-04 06:24] LABS: BASOPHILS % (AUTO) 0.4 % (0.0-2.0); HEMATOCRIT 46.3 % (41-53); HEMOGLOBIN 15.9 g/dL (13.5-17.5); LYMPHOCYTES # (AUTO) 1.2 K/uL (1.0-4.8); LYMPHOCYTES % (AUTO) 15.3 % (22.0-44.0); MEAN CORPUSCULAR HEMOGLOBIN 30.2 pg (26.0-34.0); MEAN CORPUSCULAR HGB CONC 34.3 G/dL (31.0-37.0); MEAN CORPUSCULAR VOLUME 88 fL (80-100); MONOCYTES # (AUTO) 0.6 K/uL (0.1-1.0); MONOCYTES % (AUTO) 7.6 % (2.0-9.0); NEUTROPHILS # (AUTO) 6.1 K/uL (1.8-7.7); NEUTROPHILS % (AUTO) 75.7 % (40.0-70.0); PLATELET COUNT (AUTO) 271 K/uL (150-450); RED BLOOD CELL COUNT(AUTO) 5.27 MIL/uL (4.50-5.90); RED CELL DISTRIBUTION WIDTH 12.9 % (11.5-14.5); WHITE BLOOD COUNT (AUTO) 8.1 K/uL (4.5-11.0)
[2024-07-04 06:33] LABS: ALANINE AMINOTRANSFERASE 28 U/L (12-78); ALBUMIN 3.8 g/dL (3.4-5.0); ALKALINE PHOSPHATASE 142 U/L (46-116); ANION GAP 13 mmol/L (8-16); ASPARTATE AMINOTRANSFERASE 16 U/L (15-37); BILIRUBIN,TOTAL 0.4 mg/dL (0.1-1.0); CARBON DIOXIDE 23 mmol/L (22-29); CHLORIDE 95 mmol/L (98-107); CREATININE 1.31 mg/dL (0.60-1.30); GLOMERULAR FILTR. RATE CALC 56 mL/min (>60); LIPASE 65 U/L (16-77); POTASSIUM 4.2 mmol/L (3.5-5.1); SODIUM SERUM 131 mmol/L (136-145); UREA NITROGEN, BLOOD 10 mg/dL (7-18)
[2024-07-04 06:40] LABS: GLUCOSE,RANDOM 499 mg/dL (70-110)
[2024-07-04] MEDS: ACETAMINOPHEN 500 MG TABLET PO ONE (06:52)
[2024-07-04 06:53] LABS: ACETONE,BLOOD NEGATIVE (NEGATIVE)
[2024-07-04] MEDS: LORazepam 2 MG/ML VIAL IVP ONE (06:53)
[2024-07-04] MEDS: ONDANSETRON HCL 4 MG/2 ML VIAL IVP ONE (06:53)
[2024-07-04] MEDS: INSULIN REGULAR, HUMAN 100 UNITS/ML IVP ONE (06:53)
[2024-07-04] MEDS: SODIUM CHLORIDE 0.9% 2,000 ML IV ONE (06:54)
[2024-07-04] MEDS: OMEPRAZOLE 20 MG CAPSULE PO ONE (06:55)
[2024-07-04 07:22] LABS: APPEARANCE,URINE CLEAR (CLEAR); BILIRUBIN,URINE NEGATIVE (NEGATIVE); COLOR,URINE COLORLESS (YELLOW); GLUCOSE, URINE (UA) >=1000 mg/dL (NEGATIVE); KETONES,URINE NEGATIVE (NEGATIVE); LEUKOCYTE ESTERASE ,URINE NEGATIVE (NEGATIVE); NITRATE,URINE NEGATIVE (NEGATIVE); OCCULT BLOOD,URINE NEGATIVE (NEGATIVE); PROTEIN,URINE NEGATIVE (NEGATIVE); SPECIFIC GRAVITIY, URINE 1.022 (1.003-1.030); UROBILINOGEN,URINE <=1.0 mg/dL (<=1.0)
[2024-07-04 08:00] LABS: RBC,URINE None Seen /HPF (0-2)
[2024-07-04 08:01] LABS: BACTERIA,URINE None Seen /HPF (None Seen); WBC,URINE None Seen /HPF (0-5)
[2024-07-04 08:20] VITALS: BP 127/88; PULSE 93; RESP 20; O2SAT 98
[2024-07-04 11:41] LABS: GLUCOMETER DEV NAME(LOC) ERT.6; GLUCOSE,POINT OF CARE 233 MG/DL (70-110)
[2024-07-05] MEDS ORDERED: PANT-31 PO (11:17)
== END 2024-07-04 08:21 | disposition home or self-care (01) ==
LOC: EMS 05:29
DX: F41.0 Panic disorder [episodic paroxysmal anxiety] (principal); E11.65 Type 2 diabetes mellitus with hyperglycemia; F32.A Depression, unspecified; F25.9 Schizoaffective disorder, unspecified; G89.29 Other chronic pain; Z79.84 Long term (current) use of oral hypoglycemic drugs; Z79.899 Other long term (current) drug therapy; Z98.890 Other specified postprocedural states
CPT/HCPCS: 99284; 96374; 96375; 96361; 80048; 80076; 81001; 82009; 82962; 83690; 85025; 36415; J2060; J2405; J7030; J1815; 81003

== ENCOUNTER 2024-07-06 09:46 | Emergency (ER) | payer MEDICARE ==
[~2024-07-06] VITALS: Ht 180.3 cm; Wt 104.5 kg
[~2024-07-06 09:46] MED LIST changes: -GLIP5TAB15 PO; +PANT-31 PO
[2024-07-06] MEDS ORDERED: METF-1185 PO (10:04)
[2024-07-06 10:05] VITALS: BP 119/91; PULSE 94; RESP 18; TEMP 97.8; O2SAT 98
[2024-07-06] MEDS: LORazepam 1 MG TABLET PO ONE (11:52)
[2024-07-06] MEDS ORDERED: LORA-1000 PO (11:54)
== END 2024-07-06 12:01 | disposition home or self-care (01) ==
LOC: EMS 09:56
DX: F41.9 Anxiety disorder, unspecified (principal); F32.A Depression, unspecified; G89.29 Other chronic pain; E11.9 Type 2 diabetes mellitus without complications; Z79.84 Long term (current) use of oral hypoglycemic drugs; Z79.899 Other long term (current) drug therapy
CPT/HCPCS: 99283

== ENCOUNTER 2024-07-07 06:59 | Emergency (ER) | payer MEDICARE ==
[~2024-07-07] VITALS: Ht 180.3 cm; Wt 106.8 kg
[~2024-07-07 06:59] MED LIST changes: +LORA-1000 PO; +METF-1185 PO
[2024-07-07 07:09] VITALS: TEMP 97.6
[2024-07-07 08:18] LABS: BASOPHILS % (AUTO) 0.2 % (0.0-2.0); EOSINOPHILS % (AUTO) 1.3 % (1.0-6.0); HEMOGLOBIN 14.8 g/dL (13.5-17.5); LYMPHOCYTES # (AUTO) 1.2 K/uL (1.0-4.8); LYMPHOCYTES % (AUTO) 18.6 % (22.0-44.0); MEAN CORPUSCULAR HEMOGLOBIN 29.8 pg (26.0-34.0); MEAN CORPUSCULAR HGB CONC 33.8 G/dL (31.0-37.0); MEAN CORPUSCULAR VOLUME 88 fL (80-100); MONOCYTES # (AUTO) 0.6 K/uL (0.1-1.0); MONOCYTES % (AUTO) 9.2 % (2.0-9.0); NEUTROPHILS # (AUTO) 4.5 K/uL (1.8-7.7); NEUTROPHILS % (AUTO) 70.7 % (40.0-70.0); PLATELET COUNT (AUTO) 234 K/uL (150-450); RED BLOOD CELL COUNT(AUTO) 4.98 MIL/uL (4.50-5.90); RED CELL DISTRIBUTION WIDTH 12.7 % (11.5-14.5); WHITE BLOOD COUNT (AUTO) 6.3 K/uL (4.5-11.0)
[2024-07-07 08:26] LABS: ANION GAP 12 mmol/L (8-16); CARBON DIOXIDE 25 mmol/L (22-29); CHLORIDE 98 mmol/L (98-107); CREATININE 1.21 mg/dL (0.60-1.30); GLOMERULAR FILTR. RATE CALC > 60 mL/min (>60); GLUCOSE,RANDOM 349 mg/dL (70-110); SODIUM SERUM 134 mmol/L (136-145); UREA NITROGEN, BLOOD 4 mg/dL (7-18)
[2024-07-07 11:15] VITALS: BP 122/65; PULSE 99; RESP 17; O2SAT 98
== END 2024-07-07 14:16 | disposition left against medical advice (07) ==
LOC: EMS 07:04
DX: R10.9 Unspecified abdominal pain (principal); Z53.21 Procedure and treatment not carried out due to patient leaving prior to being seen by health care provider
CPT/HCPCS: 80048; 85025

== ENCOUNTER → 2024-07-13 | Emergency (ER) | payer MEDICARE, OTHER ==
[~2024-07-13] VITALS: Ht 180.3 cm; Wt 97.7 kg
[~2024-07-13] MED LIST changes: -ACID1GRA PO; -METF-1211 PO; +ONDA-104 PO
[2024-07-13 06:08] VITALS: BP 120/86; PULSE 110; RESP 16; TEMP 98; O2SAT 100
[2024-07-13 06:53] LABS: BASOPHILS % (AUTO) 0.5 % (0.0-2.0); EOSINOPHILS % (AUTO) 0.9 % (1.0-6.0); HEMATOCRIT 44.3 % (41-53); HEMOGLOBIN 15.3 g/dL (13.5-17.5); LYMPHOCYTES # (AUTO) 1.2 K/uL (1.0-4.8); LYMPHOCYTES % (AUTO) 14.4 % (22.0-44.0); MEAN CORPUSCULAR HGB CONC 34.5 G/dL (31.0-37.0); MEAN CORPUSCULAR VOLUME 87 fL (80-100); MONOCYTES # (AUTO) 0.7 K/uL (0.1-1.0); MONOCYTES % (AUTO) 7.8 % (2.0-9.0); NEUTROPHILS # (AUTO) 6.4 K/uL (1.8-7.7); NEUTROPHILS % (AUTO) 76.4 % (40.0-70.0); PLATELET COUNT (AUTO) 255 K/uL (150-450); RED CELL DISTRIBUTION WIDTH 12.4 % (11.5-14.5); WHITE BLOOD COUNT (AUTO) 8.3 K/uL (4.5-11.0)
[2024-07-13 07:05] LABS: ANION GAP 12 mmol/L (8-16); CALCIUM, TOTAL 8.9 mg/dL (8.8-10.5); CARBON DIOXIDE 21 mmol/L (22-29); CHLORIDE 98 mmol/L (98-107); CREATININE 1.16 mg/dL (0.60-1.30); GLOMERULAR FILTR. RATE CALC > 60 mL/min (>60); GLUCOSE,RANDOM 331 mg/dL (70-110); SODIUM SERUM 131 mmol/L (136-145); UREA NITROGEN, BLOOD 5 mg/dL (7-18)
[2024-07-13 07:07] LABS: GLUCOMETER DEV NAME(LOC) ERT.6; GLUCOSE,POINT OF CARE 419 MG/DL (70-110)
[2024-07-13 07:11] LABS: ALANINE AMINOTRANSFERASE 29 U/L (12-78); ALBUMIN 3.7 g/dL (3.4-5.0); ALKALINE PHOSPHATASE 109 U/L (46-116); ASPARTATE AMINOTRANSFERASE 21 U/L (15-37); BILIRUBIN,TOTAL 0.5 mg/dL (0.1-1.0); TOTAL PROTEIN, SERUM 6.8 g/dL (6.4-8.2)
[2024-07-13 07:13] LABS: ACETONE,BLOOD NEGATIVE (NEGATIVE)
[2024-07-13] MEDS: LORazepam 1 MG TABLET PO ONE (08:59)
[2024-07-13] MEDS: INSULIN REGULAR, HUMAN 100 UNITS/ML SQ ONE (09:00)
== END | disposition still patient (30) ==
LOC: EMS 05:59
DX: F41.9 Anxiety disorder, unspecified (principal); E11.65 Type 2 diabetes mellitus with hyperglycemia; F32.A Depression, unspecified; G89.29 Other chronic pain; Z79.84 Long term (current) use of oral hypoglycemic drugs; Z79.899 Other long term (current) drug therapy
CPT/HCPCS: 99283; 80048; 80076; 82009; 82962; 85025; 36415; J1815

== ENCOUNTER 2024-07-15 08:26 | Emergency (ER) | payer MEDICARE ==
[~2024-07-15] VITALS: Ht 180.3 cm; Wt 99.0 kg
[~2024-07-15 08:26] MED LIST changes: -ONDA-104 PO
[2024-07-15 08:30] VITALS: TEMP 98.1
[2024-07-15] MEDS: SODIUM CHLORIDE 0.9% 1,000 ML IV ONE (09:01)
[2024-07-15] MEDS: ONDANSETRON HCL 4 MG/2 ML VIAL IVP ONE (09:04)
[2024-07-15] MEDS: KETOROLAC TROMETHAMINE 30 MG/ML VIAL IVP ONE (09:04)
[2024-07-15] MEDS: LORazepam 2 MG/ML VIAL IVP ONE (09:04)
[2024-07-15] MEDS: FAMOTIDINE 20 MG/2 ML VIAL IVP ONE (09:04)
[2024-07-15] MEDS ORDERED: SODIUM CHLORIDE 0.9% 100 ML ONE (09:11)
[2024-07-15] MEDS ORDERED: IOHEXOL 350 MG/ML 100 ML VIAL ONE (09:11)
[2024-07-15 09:12] LABS: ANION GAP 9 mmol/L (8-16); CALCIUM, TOTAL 8.6 mg/dL (8.8-10.5); CARBON DIOXIDE 27 mmol/L (22-29); CHLORIDE 100 mmol/L (98-107); CREATININE 1.13 mg/dL (0.60-1.30); GLOMERULAR FILTR. RATE CALC > 60 mL/min (>60); GLUCOSE,RANDOM 241 mg/dL (70-110); POTASSIUM 3.9 mmol/L (3.5-5.1); SODIUM SERUM 136 mmol/L (136-145); UREA NITROGEN, BLOOD 4 mg/dL (7-18)
[2024-07-15 09:13] LABS: BASOPHILS % (AUTO) 0.3 % (0.0-2.0); EOSINOPHILS % (AUTO) 0.9 % (1.0-6.0); HEMATOCRIT 43.3 % (41-53); HEMOGLOBIN 14.8 g/dL (13.5-17.5); LYMPHOCYTES # (AUTO) 1.1 K/uL (1.0-4.8); LYMPHOCYTES % (AUTO) 17.1 % (22.0-44.0); MEAN CORPUSCULAR HGB CONC 34.2 G/dL (31.0-37.0); MEAN CORPUSCULAR VOLUME 88 fL (80-100); MONOCYTES # (AUTO) 0.5 K/uL (0.1-1.0); MONOCYTES % (AUTO) 8.7 % (2.0-9.0); NEUTROPHILS # (AUTO) 4.5 K/uL (1.8-7.7); PLATELET COUNT (AUTO) 245 K/uL (150-450); RED BLOOD CELL COUNT(AUTO) 4.94 MIL/uL (4.50-5.90); RED CELL DISTRIBUTION WIDTH 12.6 % (11.5-14.5); WHITE BLOOD COUNT (AUTO) 6.2 K/uL (4.5-11.0)
[2024-07-15 09:18] LABS: ALANINE AMINOTRANSFERASE 23 U/L (12-78); ALBUMIN 3.7 g/dL (3.4-5.0); ALKALINE PHOSPHATASE 108 U/L (46-116); ASPARTATE AMINOTRANSFERASE 15 U/L (15-37); BILIRUBIN,TOTAL 0.4 mg/dL (0.1-1.0); TOTAL PROTEIN, SERUM 6.6 g/dL (6.4-8.2)
[2024-07-15 09:35] LABS: LIPASE 304 U/L (16-77)
[2024-07-15] MEDS ORDERED: ONDA-104 PO (12:41)
[2024-07-15 13:04] VITALS: BP 131/70; PULSE 98; RESP 16; O2SAT 98
== END 2024-07-15 13:08 | disposition home or self-care (01) ==
LOC: EMS 08:27
DX: R10.13 Epigastric pain (principal); R11.2 Nausea with vomiting, unspecified; F41.9 Anxiety disorder, unspecified; F32.A Depression, unspecified; E11.9 Type 2 diabetes mellitus without complications; G89.29 Other chronic pain; N40.0 Benign prostatic hyperplasia without lower urinary tract symptoms; Z98.890 Other specified postprocedural states; Z79.84 Long term (current) use of oral hypoglycemic drugs; Z79.899 Other long term (current) drug therapy
CPT/HCPCS: 99285; 74177; 96374; 96375; 96361; 80048; 80076; 82962; 83690; 85025; 36415; Q9967; J3490; J1885; J2060; J2405; J7030; J7050

== ENCOUNTER 2024-07-16 06:15 | Emergency (ER) | payer MEDICARE ==
[~2024-07-16] VITALS: Ht 180.3 cm; Wt 98.2 kg
[~2024-07-16 06:15] MED LIST changes: +ONDA-104 PO
[2024-07-16 06:18] VITALS: BP 140/76; PULSE 103; RESP 20; TEMP 98; O2SAT 99
[2024-07-16 07:07] LABS: BASOPHILS % (AUTO) 0.6 % (0.0-2.0); EOSINOPHILS % (AUTO) 2.3 % (1.0-6.0); HEMOGLOBIN 14.6 g/dL (13.5-17.5); LYMPHOCYTES # (AUTO) 1.1 K/uL (1.0-4.8); LYMPHOCYTES % (AUTO) 19.7 % (22.0-44.0); MEAN CORPUSCULAR HEMOGLOBIN 29.8 pg (26.0-34.0); MEAN CORPUSCULAR VOLUME 88 fL (80-100); MONOCYTES # (AUTO) 0.4 K/uL (0.1-1.0); MONOCYTES % (AUTO) 8.1 % (2.0-9.0); NEUTROPHILS # (AUTO) 3.7 K/uL (1.8-7.7); NEUTROPHILS % (AUTO) 69.3 % (40.0-70.0); PLATELET COUNT (AUTO) 252 K/uL (150-450); RED BLOOD CELL COUNT(AUTO) 4.91 MIL/uL (4.50-5.90); RED CELL DISTRIBUTION WIDTH 12.6 % (11.5-14.5); WHITE BLOOD COUNT (AUTO) 5.4 K/uL (4.5-11.0)
[2024-07-16 07:13] LABS: ANION GAP 9 mmol/L (8-16); CALCIUM, TOTAL 8.7 mg/dL (8.8-10.5); CARBON DIOXIDE 29 mmol/L (22-29); CHLORIDE 103 mmol/L (98-107); CREATININE 1.07 mg/dL (0.60-1.30); GLOMERULAR FILTR. RATE CALC > 60 mL/min (>60); GLUCOSE,RANDOM 288 mg/dL (70-110); POTASSIUM 4.4 mmol/L (3.5-5.1); SODIUM SERUM 141 mmol/L (136-145); UREA NITROGEN, BLOOD 5 mg/dL (7-18)
[2024-07-16 07:14] LABS: LIPASE 62 U/L (16-77)
[2024-07-16] MEDS: LORazepam 2 MG/ML VIAL IM ONE (09:36)
[2024-07-16] MEDS: HALOPERIDOL LACTATE 5 MG/ML VIAL IM ONE (09:36)
== END 2024-07-16 09:58 | disposition home or self-care (01) ==
LOC: EMS 06:16
DX: F41.0 Panic disorder [episodic paroxysmal anxiety] (principal); E11.65 Type 2 diabetes mellitus with hyperglycemia; F25.1 Schizoaffective disorder, depressive type; Z79.84 Long term (current) use of oral hypoglycemic drugs; Z79.899 Other long term (current) drug therapy
CPT/HCPCS: 99284; 80048; 83690; 85025; 36415; 82962; 96372; J1630; J2060

== ENCOUNTER 2024-07-25 10:17 | Emergency (ER) | payer MEDICARE ==
[~2024-07-25] VITALS: Ht 180.3 cm; Wt 97.7 kg
[2024-07-25 10:26] VITALS: BP 131/85; PULSE 104; RESP 18; TEMP 98.5; O2SAT 100
[2024-07-25 10:57] LABS: APPEARANCE,URINE CLEAR (CLEAR); BILIRUBIN,URINE NEGATIVE (NEGATIVE); COLOR,URINE COLORLESS (YELLOW); GLUCOSE, URINE (UA) 70-100 mg/dL (NEGATIVE); KETONES,URINE NEGATIVE (NEGATIVE); LEUKOCYTE ESTERASE ,URINE NEGATIVE (NEGATIVE); NITRATE,URINE NEGATIVE (NEGATIVE); OCCULT BLOOD,URINE NEGATIVE (NEGATIVE); PROTEIN,URINE NEGATIVE (NEGATIVE); SPECIFIC GRAVITIY, URINE 1.005 (1.003-1.030); UROBILINOGEN,URINE <=1.0 mg/dL (<=1.0)
[2024-07-25 11:08] LABS: BASOPHILS % (AUTO) 0.3 % (0.0-2.0); EOSINOPHILS % (AUTO) 0.8 % (1.0-6.0); HEMATOCRIT 43.9 % (41-53); LYMPHOCYTES # (AUTO) 1.4 K/uL (1.0-4.8); LYMPHOCYTES % (AUTO) 20.7 % (22.0-44.0); MEAN CORPUSCULAR HEMOGLOBIN 29.9 pg (26.0-34.0); MEAN CORPUSCULAR HGB CONC 34.2 G/dL (31.0-37.0); MEAN CORPUSCULAR VOLUME 87 fL (80-100); MONOCYTES # (AUTO) 0.5 K/uL (0.1-1.0); MONOCYTES % (AUTO) 7.9 % (2.0-9.0); NEUTROPHILS # (AUTO) 4.8 K/uL (1.8-7.7); NEUTROPHILS % (AUTO) 70.3 % (40.0-70.0); PLATELET COUNT (AUTO) 287 K/uL (150-450); RED BLOOD CELL COUNT(AUTO) 5.02 MIL/uL (4.50-5.90); RED CELL DISTRIBUTION WIDTH 12.9 % (11.5-14.5); WHITE BLOOD COUNT (AUTO) 6.8 K/uL (4.5-11.0)
[2024-07-25 11:09] LABS: ANION GAP 10 mmol/L (8-16); CARBON DIOXIDE 28 mmol/L (22-29); CHLORIDE 99 mmol/L (98-107); CREATININE 1.07 mg/dL (0.60-1.30); GLOMERULAR FILTR. RATE CALC > 60 mL/min (>60); GLUCOSE,RANDOM 188 mg/dL (70-110); LIPASE 57 U/L (16-77); POTASSIUM 3.4 mmol/L (3.5-5.1); SODIUM SERUM 137 mmol/L (136-145); UREA NITROGEN, BLOOD 4 mg/dL (7-18)
[2024-07-25 11:11] LABS: BACTERIA,URINE None Seen /HPF (None Seen); RBC,URINE None Seen /HPF (0-2); SQUAMOUS EPITHELIAL CELL,UR None Seen /LPF (None Seen); WBC,URINE None Seen /HPF (0-5)
[2024-07-25] MEDS: LORazepam 2 MG TABLET PO ONE (12:27)
== END 2024-07-25 12:47 | disposition home or self-care (01) ==
LOC: EMS 10:17
DX: R10.13 Epigastric pain (principal); F41.9 Anxiety disorder, unspecified; K85.90 Acute pancreatitis without necrosis or infection, unspecified; E11.9 Type 2 diabetes mellitus without complications; F32.A Depression, unspecified; G89.29 Other chronic pain
CPT/HCPCS: 80048; 81001; 82962; 83690; 85025; 99283

== ENCOUNTER 2024-07-28 04:23 | Emergency (ER) | payer MEDICARE ==
[~2024-07-28] VITALS: Ht 180.3 cm; Wt 97.7 kg
[2024-07-28 04:32] VITALS: TEMP 98.5
[2024-07-28 07:00] VITALS: BP 131/79; PULSE 91; RESP 19; O2SAT 100
[2024-07-28] MEDS: LORazepam 1 MG TABLET PO ONE (07:17)
== END 2024-07-28 07:20 | disposition home or self-care (01) ==
LOC: EMS 04:27
DX: F41.9 Anxiety disorder, unspecified (principal); F32.A Depression, unspecified; E11.9 Type 2 diabetes mellitus without complications; Z79.84 Long term (current) use of oral hypoglycemic drugs; Z79.899 Other long term (current) drug therapy
CPT/HCPCS: 82962; 99283

== ENCOUNTER 2024-08-20 11:15 | Inpatient (IN) | payer MEDICARE, OTHER ==
[~2024-08-20] VITALS: Ht 180.3 cm; Wt 97.5 kg
[~2024-08-20 11:15] MED LIST changes: -LORA-1000 PO; +LORA1TAB25 PO
[2024-08-20 12:06] LABS: BASOPHILS % (AUTO) 0.3 % (0.0-2.0); EOSINOPHILS % (AUTO) 0.6 % (1.0-6.0); HEMATOCRIT 41.7 % (41-53); HEMOGLOBIN 14.3 g/dL (13.5-17.5); LYMPHOCYTES # (AUTO) 1.2 K/uL (1.0-4.8); LYMPHOCYTES % (AUTO) 15.8 % (22.0-44.0); MEAN CORPUSCULAR HEMOGLOBIN 29.7 pg (26.0-34.0); MEAN CORPUSCULAR HGB CONC 34.3 G/dL (31.0-37.0); MEAN CORPUSCULAR VOLUME 87 fL (80-100); MONOCYTES # (AUTO) 0.5 K/uL (0.1-1.0); MONOCYTES % (AUTO) 6.9 % (2.0-9.0); NEUTROPHILS # (AUTO) 5.7 K/uL (1.8-7.7); NEUTROPHILS % (AUTO) 76.4 % (40.0-70.0); PLATELET COUNT (AUTO) 264 K/uL (150-450); RED BLOOD CELL COUNT(AUTO) 4.81 MIL/uL (4.50-5.90); RED CELL DISTRIBUTION WIDTH 13.1 % (11.5-14.5); WHITE BLOOD COUNT (AUTO) 7.5 K/uL (4.5-11.0)
[2024-08-20 12:20] LABS: ALCOHOL, BLOOD (SERUM) < 3 mg/dL (0-10); ANION GAP 13 mmol/L (8-16); CALCIUM, TOTAL 9.6 mg/dL (8.8-10.5); CARBON DIOXIDE 23 mmol/L (22-29); CHLORIDE 99 mmol/L (98-107); GLOMERULAR FILTR. RATE CALC > 60 mL/min (>60); GLUCOSE,RANDOM 362 mg/dL (70-110); POTASSIUM 4.1 mmol/L (3.5-5.1); SODIUM SERUM 135 mmol/L (136-145); UREA NITROGEN, BLOOD 7 mg/dL (7-18)
[2024-08-20 12:24] LABS: ALANINE AMINOTRANSFERASE 27 U/L (12-78); ALBUMIN 3.8 g/dL (3.4-5.0); ALKALINE PHOSPHATASE 119 U/L (46-116); ASPARTATE AMINOTRANSFERASE 16 U/L (15-37); BILIRUBIN,TOTAL 0.6 mg/dL (0.1-1.0); TOTAL PROTEIN, SERUM 6.8 g/dL (6.4-8.2)
[2024-08-20] MEDS: LORazepam 2 MG TABLET PO ONE (14:39)
[2024-08-20] MEDS: HALOPERIDOL 5 MG TABLET PO ONE (15:01)
[2024-08-20 15:09] LABS: COVID AG,FIA SOURCE NASAL SWAB
[2024-08-20] MEDS ORDERED: LOPERAMIDE HCL 2 MG CAPSULE PO PRN (15:15)
[2024-08-20] MEDS ORDERED: MAG HYDROX/ALUMINUM HYD/SIMETH ES 30 ML SUSPENSION UDCUP PO PRN (15:15)
[2024-08-20] MEDS ORDERED: ACETAMINOPHEN 325 MG TABLET PO PRN (15:15)
[2024-08-20] MEDS ORDERED: MAGNESIUM HYDROXIDE SUSPENSION 30 ML UDCUP PO PRN (15:15)
[2024-08-20 15:33] LABS: SARS-COV2 (COVID) ANTIGEN,FIA Negative (Negative)
[2024-08-20 15:35] LABS: AMPHET/METH SCREEN,URINE NEGATIVE (NEGATIVE); APPEARANCE,URINE CLEAR (CLEAR); BARBITURATE SCREEN, URINE NEGATIVE (NEGATIVE); BENZODIAZEPINES SCREEN,URINE NEGATIVE (NEGATIVE); BILIRUBIN,URINE NEGATIVE (NEGATIVE); CANNABINOID SCREEN,URINE NEGATIVE (NEGATIVE); COCAINE SCREEN,URINE NEGATIVE (NEGATIVE); COLOR,URINE COLORLESS (YELLOW); GLUCOSE, URINE (UA) >=1000 mg/dL (NEGATIVE); KETONES,URINE NEGATIVE (NEGATIVE); LEUKOCYTE ESTERASE ,URINE NEGATIVE (NEGATIVE); METHADONE SCREEN, URINE NEGATIVE (NEGATIVE); NITRATE,URINE NEGATIVE (NEGATIVE); OCCULT BLOOD,URINE NEGATIVE (NEGATIVE); OPIATE SCREEN,URINE NEGATIVE (NEGATIVE); PH,URINE 5.5 (5.0-8.0); PH,URINE DRUG SCREEN 5.5 (5.0-8.0); PHENCYCLIDINE SCREEN,URINE NEGATIVE (NEGATIVE); PROTEIN,URINE NEGATIVE (NEGATIVE); SPECIFIC GRAVITIY, URINE 1.009 (1.003-1.030); UROBILINOGEN,URINE <=1.0 mg/dL (<=1.0)
[2024-08-20 15:36] LABS: ALCOHOL, URINE DRUG SCREEN NEGATIVE (NEGATIVE)
[2024-08-20 15:55] LABS: BACTERIA,URINE None Seen /HPF (None Seen); RBC,URINE None Seen /HPF (0-2); WBC,URINE None Seen /HPF (0-5)
[2024-08-20 15:56] LABS: SQUAMOUS EPITHELIAL CELL,UR None Seen /LPF (None Seen)
[2024-08-20] MEDS: HydrOXYzine PAMOATE 50 MG CAPSULE PO PRN (17:19)
[2024-08-20 20:10] VITALS: O2SAT 97
[2024-08-21 00:10] LABS: GLUCOMETER DEV NAME(LOC) ER.7; GLUCOSE,POINT OF CARE 243 MG/DL (70-110)
[2024-08-21 00:49] VITALS: BP 117/70; PULSE 95; RESP 18; TEMP 97.9; O2SAT 98
[2024-08-21] MEDS ORDERED: INFLUENZA VIRUS VACCINE TVS (6MO+) 2024-25/PF 45 MCG/0.5 ML SYRINGE IM. ONE (02:15)
[2024-08-21] MEDS ORDERED: MAG HYDROX/ALUMINUM HYD/SIMETH ES 30 ML SUSPENSION UDCUP PO PRN (07:45)
[2024-08-21] MEDS ORDERED: DOCUSATE SODIUM 100 MG CAPSULE PO PRN ×2 (07:45)
[2024-08-21] MEDS ORDERED: PETROLATUM,WHITE 28 GM JELLY TP PRN ×2 (07:45)
[2024-08-21] MEDS ORDERED: CloNIDine HCL 0.1 MG TABLET PO PRN ×2 (07:45)
[2024-08-21] MEDS ORDERED: LOPERAMIDE HCL 2 MG CAPSULE PO PRN ×2 (07:45)
[2024-08-21] MEDS ORDERED: GLUCAGON,HUMAN RECOMBINANT 1 MG VIAL IM PRN (07:45)
[2024-08-21] MEDS ORDERED: ACETAMINOPHEN 325 MG TABLET PO PRN (07:45)
[2024-08-21] MEDS ORDERED: GuaiFENesin/D-METHORPHAN [SUGAR-FREE] 200-20MG/10 ML SYRUP UDCUP PO PRN (07:45)
[2024-08-21] MEDS ORDERED: ONDANSETRON 4 MG TABLET PO PRN (07:45)
[2024-08-21] MEDS ORDERED: MAGNESIUM HYDROXIDE SUSPENSION 30 ML UDCUP PO PRN (07:45)
[2024-08-21] MEDS ORDERED: ALBUTEROL SULFATE HFA 90 MCG/PUFF 8 GM INHALER IH PRN ×2 (07:45)
[2024-08-21] MEDS ORDERED: NICOTINE 14 MG/24 HOUR PATCH TD PRN (07:45)
[2024-08-21] MEDS ORDERED: IBUPROFEN 400 MG TABLET PO PRN (07:45)
[2024-08-21] MEDS: HALOPERIDOL 5 MG TABLET PO PRN (08:28)
[2024-08-21] MEDS: PANTOPRAZOLE SODIUM 40 MG DR TABLET PO SCH (08:41)
[2024-08-21 09:06] VITALS: BP 106/74; PULSE 85; RESP 17; TEMP 97.8; O2SAT 100
[2024-08-21] MEDS: INSULIN LISPRO 100 UNITS/ML SQ PRN (11:12)
[2024-08-21 11:30] LABS: GLUCOMETER DEV NAME(LOC) BV3N.2; GLUCOSE,POINT OF CARE 294 MG/DL (70-110)
[2024-08-21 11:30] LABS: GLUCOMETER DEV NAME(LOC) BV3N.2; GLUCOSE,POINT OF CARE 300 MG/DL (70-110)
[2024-08-21] MEDS: PALIPERIDONE 6 MG ER TABLET PO SCH (12:44)
[2024-08-21] MEDS: BusPIRone HCL 15 MG TABLET PO SCH (12:44)
[2024-08-21] MEDS: SERTRALINE HCL 50 MG TABLET PO SCH (12:44)
[2024-08-21] MEDS: HydrOXYzine HCL 50 MG TABLET PO SCH (13:00)
[2024-08-21 16:00] VITALS: BP 136/90; PULSE 92; RESP 18; TEMP 98; O2SAT 95
[2024-08-21] MEDS: BENZTROPINE MESYLATE 0.5 MG TABLET PO SCH (16:18)
[2024-08-21] MEDS: MetFORMIN HCL 850 MG TABLET PO SCH (16:18)
[2024-08-21] MEDS: DIVALPROEX SODIUM 500 MG DR TABLET PO SCH (16:18)
[2024-08-21 16:41] LABS: GLUCOMETER DEV NAME(LOC) BV3N.2; GLUCOSE,POINT OF CARE 331 MG/DL (70-110)
[2024-08-21] MEDS: NICOTINE 14 MG/24 HOUR PATCH TD PRN (17:51)
[2024-08-21 19:41] LABS: GLUCOMETER DEV NAME(LOC) BV3N.2; GLUCOSE,POINT OF CARE 212 MG/DL (70-110)
[2024-08-21] MEDS: ZOLPIDEM TARTRATE 10 MG TABLET PO PRN (20:09)
[2024-08-21] MEDS: TAMSULOSIN HCL 0.4 MG CAPSULE PO SCH (20:09)
[2024-08-21] MEDS: TraZODone HCL 150 MG TABLET PO SCH (20:09)
[2024-08-21 20:46] VITALS: BP 111/61; PULSE 80; RESP 18; TEMP 98.3; O2SAT 95
[2024-08-22 06:30] LABS: GLUCOMETER DEV NAME(LOC) BV3N.2; GLUCOSE,POINT OF CARE 263 MG/DL (70-110)
[2024-08-22 08:08] VITALS: BP 140/80; PULSE 88; RESP 16; TEMP 98; O2SAT 100
[2024-08-22 08:34] LABS: BASOPHILS % (AUTO) 0.2 % (0.0-2.0); EOSINOPHILS % (AUTO) 2.7 % (1.0-6.0); HEMATOCRIT 41.1 % (41-53); LYMPHOCYTES # (AUTO) 1.2 K/uL (1.0-4.8); LYMPHOCYTES % (AUTO) 22.9 % (22.0-44.0); MEAN CORPUSCULAR HEMOGLOBIN 29.8 pg (26.0-34.0); MEAN CORPUSCULAR HGB CONC 34.1 G/dL (31.0-37.0); MEAN CORPUSCULAR VOLUME 88 fL (80-100); MONOCYTES # (AUTO) 0.4 K/uL (0.1-1.0); MONOCYTES % (AUTO) 8.3 % (2.0-9.0); NEUTROPHILS # (AUTO) 3.4 K/uL (1.8-7.7); NEUTROPHILS % (AUTO) 65.9 % (40.0-70.0); PLATELET COUNT (AUTO) 241 K/uL (150-450); RED BLOOD CELL COUNT(AUTO) 4.69 MIL/uL (4.50-5.90); WHITE BLOOD COUNT (AUTO) 5.1 K/uL (4.5-11.0)
[2024-08-22 08:37] LABS: HEMOGLOBIN A1C 9.7 % (3.8-5.6)
[2024-08-22 08:48] LABS: ALANINE AMINOTRANSFERASE 25 U/L (12-78); ALBUMIN 3.4 g/dL (3.4-5.0); ALKALINE PHOSPHATASE 107 U/L (46-116); ANION GAP 8 mmol/L (8-16); ASPARTATE AMINOTRANSFERASE 15 U/L (15-37); BILIRUBIN,TOTAL 0.7 mg/dL (0.1-1.0); CALCIUM, TOTAL 8.6 mg/dL (8.8-10.5); CARBON DIOXIDE 29 mmol/L (22-29); CHLORIDE 101 mmol/L (98-107); GLOMERULAR FILTR. RATE CALC > 60 mL/min (>60); GLUCOSE,RANDOM 238 mg/dL (70-110); POTASSIUM 4.2 mmol/L (3.5-5.1); SODIUM SERUM 138 mmol/L (136-145); THYROID STIMULATING HORMONE 0.69 uIU/mL (0.36-3.74); TOTAL PROTEIN, SERUM 6.2 g/dL (6.4-8.2); UREA NITROGEN, BLOOD 10 mg/dL (7-18)
[2024-08-22 09:08] LABS: CHOL/HDL RATIO 3.2 (4.2-7.3); CHOLESTEROL 123 mg/dL (131-200); HDL CHOLESTEROL 39 mg/dL (40-60); LDL CHOL (CALC.) 31 mg/dL (0-130); TRIGLYCERIDES 264 mg/dL (15-150)
[2024-08-22] MEDS: HydrOXYzine PAMOATE 50 MG CAPSULE PO PRN (10:38)
[2024-08-22] MEDS: MAG HYDROX/ALUMINUM HYD/SIMETH ES 30 ML SUSPENSION UDCUP PO PRN (11:30)
[2024-08-22 16:36] LABS: GLUCOMETER DEV NAME(LOC) BV3N.2; GLUCOSE,POINT OF CARE 243 MG/DL (70-110)
[2024-08-22 16:36] LABS: GLUCOMETER DEV NAME(LOC) BV3N.2; GLUCOSE,POINT OF CARE 252 MG/DL (70-110)
[2024-08-22 19:46] LABS: GLUCOMETER DEV NAME(LOC) BV3N.2; GLUCOSE,POINT OF CARE 219 MG/DL (70-110)
[2024-08-22 20:17] VITALS: BP 104/55; PULSE 76; RESP 16; TEMP 97.8; O2SAT 98
[2024-08-23 04:30] VITALS: BP 124/62; PULSE 78; RESP 18; TEMP 97.8; O2SAT 98
[2024-08-23] MEDS: ACETAMINOPHEN 325 MG TABLET PO PRN (04:30)
[2024-08-23 06:25] LABS: GLUCOMETER DEV NAME(LOC) BV3N.2; GLUCOSE,POINT OF CARE 220 MG/DL (70-110)
[2024-08-23 08:14] VITALS: BP 116/63; PULSE 88; RESP 16; TEMP 97.9; O2SAT 96
[2024-08-23 11:45] LABS: GLUCOMETER DEV NAME(LOC) BV3N.2; GLUCOSE,POINT OF CARE 246 MG/DL (70-110)
[2024-08-23 16:40] LABS: GLUCOMETER DEV NAME(LOC) BV3N.2; GLUCOSE,POINT OF CARE 204 MG/DL (70-110)
[2024-08-23 20:03] VITALS: BP 104/64; PULSE 76; RESP 17; TEMP 98.1; O2SAT 97
[2024-08-23 21:00] LABS: GLUCOMETER DEV NAME(LOC) BV3N.2; GLUCOSE,POINT OF CARE 145 MG/DL (70-110)
[2024-08-24 06:20] LABS: GLUCOMETER DEV NAME(LOC) BV3N.2; GLUCOSE,POINT OF CARE 168 MG/DL (70-110)
[2024-08-24 08:17] VITALS: BP 104/61; PULSE 85; RESP 15; TEMP 97.9; O2SAT 95
[2024-08-24 08:50] VITALS: RESP 18
[2024-08-24 09:51] VITALS: RESP 16
[2024-08-24 11:56] LABS: GLUCOMETER DEV NAME(LOC) BV3N.2; GLUCOSE,POINT OF CARE 189 MG/DL (70-110)
[2024-08-24 16:36] LABS: GLUCOMETER DEV NAME(LOC) BV2S.; GLUCOSE,POINT OF CARE 237 MG/DL (70-110)
[2024-08-24 20:16] VITALS: BP 115/69; PULSE 88; RESP 18; TEMP 97.7; O2SAT 96
[2024-08-25 06:40] VITALS: BP 106/68; PULSE 75; RESP 17; TEMP 97.4; O2SAT 98
[2024-08-25 07:40] VITALS: RESP 18
[2024-08-25 11:25] LABS: GLUCOMETER DEV NAME(LOC) BV2S.; GLUCOSE,POINT OF CARE 165 MG/DL (70-110)
[2024-08-25 11:25] LABS: GLUCOMETER DEV NAME(LOC) BV2S.; GLUCOSE,POINT OF CARE 155 MG/DL (70-110)
[2024-08-25 13:28] VITALS: BP 97/68; PULSE 90; RESP 16; TEMP 97; O2SAT 90
[2024-08-25 16:55] LABS: GLUCOMETER DEV NAME(LOC) BV2S.; GLUCOSE,POINT OF CARE 233 MG/DL (70-110)
[2024-08-25 20:57] VITALS: BP 100/68; PULSE 76; RESP 16; TEMP 98.8; O2SAT 98
[2024-08-25 21:31] VITALS: BP 110/69; PULSE 76; RESP 16; TEMP 98.8; O2SAT 98
[2024-08-26 06:25] LABS: GLUCOMETER DEV NAME(LOC) BV2S.; GLUCOSE,POINT OF CARE 146 MG/DL (70-110)
[2024-08-26 08:13] VITALS: BP 113/61; PULSE 91; RESP 19; TEMP 98; O2SAT 98
[2024-08-26 11:26] LABS: GLUCOMETER DEV NAME(LOC) BV2S.; GLUCOSE,POINT OF CARE 169 MG/DL (70-110)
[2024-08-26 13:30] LABS: GLUCOMETER DEV NAME(LOC) BV2S.; GLUCOSE,POINT OF CARE 182 MG/DL (70-110)
[2024-08-26 16:31] LABS: GLUCOMETER DEV NAME(LOC) BV2S.; GLUCOSE,POINT OF CARE 159 MG/DL (70-110)
[2024-08-26 20:10] VITALS: BP 124/69; PULSE 89; RESP 19; TEMP 97.5; O2SAT 95
[2024-08-26 20:25] LABS: GLUCOMETER DEV NAME(LOC) BV2X.3; GLUCOSE,POINT OF CARE 121 MG/DL (70-110)
[2024-08-26] MEDS: GuaiFENesin/D-METHORPHAN [SUGAR-FREE] 200-20MG/10 ML SYRUP UDCUP PO PRN (22:11)
[2024-08-26 22:50] VITALS: RESP 18
[2024-08-27 06:11] LABS: GLUCOMETER DEV NAME(LOC) BV2X.3; GLUCOSE,POINT OF CARE 161 MG/DL (70-110)
[2024-08-27 08:22] VITALS: BP 103/60; PULSE 85; RESP 17; TEMP 98.5; O2SAT 98
[2024-08-27] MEDS: LORazepam 1 MG TABLET PO ONE (11:08)
[2024-08-27 11:20] LABS: GLUCOMETER DEV NAME(LOC) BV2X.3; GLUCOSE,POINT OF CARE 179 MG/DL (70-110)
[2024-08-27 16:16] LABS: GLUCOMETER DEV NAME(LOC) BV2X.3; GLUCOSE,POINT OF CARE 180 MG/DL (70-110)
[2024-08-27 16:29] VITALS: RESP 18
[2024-08-27 17:29] VITALS: RESP 18
[2024-08-27 20:51] VITALS: BP 104/58; PULSE 74; RESP 18; TEMP 98.4
[2024-08-27 21:01] LABS: GLUCOMETER DEV NAME(LOC) BV2X.3; GLUCOSE,POINT OF CARE 174 MG/DL (70-110)
[2024-08-28 06:15] LABS: GLUCOMETER DEV NAME(LOC) BV2X.3; GLUCOSE,POINT OF CARE 159 MG/DL (70-110)
[2024-08-28 09:01] VITALS: BP 106/67; PULSE 78; RESP 18; TEMP 98.2; O2SAT 97
[2024-08-28 12:00] LABS: GLUCOMETER DEV NAME(LOC) BV2X.3; GLUCOSE,POINT OF CARE 123 MG/DL (70-110)
[2024-08-28 16:51] LABS: GLUCOMETER DEV NAME(LOC) BV2X.3; GLUCOSE,POINT OF CARE 162 MG/DL (70-110)
[2024-08-29 06:25] LABS: GLUCOMETER DEV NAME(LOC) BV2X.3; GLUCOSE,POINT OF CARE 162 MG/DL (70-110)
[2024-08-29 08:00] VITALS: BP 123/76; PULSE 89; RESP 17; TEMP 97.3; O2SAT 99
[2024-08-29 11:31] LABS: GLUCOMETER DEV NAME(LOC) BV2X.3; GLUCOSE,POINT OF CARE 139 MG/DL (70-110)
[2024-08-29 16:25] LABS: GLUCOMETER DEV NAME(LOC) BV2X.3; GLUCOSE,POINT OF CARE 203 MG/DL (70-110)
[2024-08-29 20:18] VITALS: BP 120/70; PULSE 86; RESP 16; TEMP 98.4; O2SAT 98
[2024-08-30 05:50] LABS: GLUCOMETER DEV NAME(LOC) BV2X.3; GLUCOSE,POINT OF CARE 121 MG/DL (70-110)
[2024-08-30 06:20] LABS: GLUCOMETER DEV NAME(LOC) BV2X.3; GLUCOSE,POINT OF CARE 163 MG/DL (70-110)
[2024-08-30 08:34] VITALS: BP 103/62; PULSE 80; RESP 18; TEMP 97.7; O2SAT 99
[2024-08-30 11:26] LABS: GLUCOMETER DEV NAME(LOC) BV2X.3; GLUCOSE,POINT OF CARE 161 MG/DL (70-110)
[2024-08-30] MEDS: GABAPENTIN 100 MG CAPSULE PO SCH (13:12)
[2024-08-30 17:06] LABS: GLUCOMETER DEV NAME(LOC) BV2X.3; GLUCOSE,POINT OF CARE 176 MG/DL (70-110)
[2024-08-30 20:35] LABS: GLUCOMETER DEV NAME(LOC) BV2X.3; GLUCOSE,POINT OF CARE 101 MG/DL (70-110)
[2024-08-30 21:45] VITALS: BP 108/63; PULSE 80; RESP 16; TEMP 98.4; O2SAT 97
[2024-08-31 06:15] LABS: GLUCOMETER DEV NAME(LOC) BV2X.3; GLUCOSE,POINT OF CARE 167 MG/DL (70-110)
[2024-08-31] MEDS: IBUPROFEN 400 MG TABLET PO PRN (06:41)
[2024-08-31 07:41] VITALS: RESP 16; O2SAT 98
[2024-08-31 09:26] VITALS: BP 99/55; PULSE 80; RESP 17; TEMP 98.3; O2SAT 95
[2024-08-31 13:56] LABS: GLUCOMETER DEV NAME(LOC) BV2X.3; GLUCOSE,POINT OF CARE 222 MG/DL (70-110)
[2024-08-31] MEDS: MetFORMIN HCL 500 MG TABLET PO SCH (16:36)
[2024-08-31 16:41] LABS: GLUCOMETER DEV NAME(LOC) BV2X.3; GLUCOSE,POINT OF CARE 165 MG/DL (70-110)
[2024-08-31 20:28] VITALS: BP 104/64; PULSE 68; RESP 18; TEMP 97.5; O2SAT 96
[2024-08-31 20:51] LABS: GLUCOMETER DEV NAME(LOC) BV2X.3; GLUCOSE,POINT OF CARE 175 MG/DL (70-110)
[2024-09-01 06:30] LABS: GLUCOMETER DEV NAME(LOC) BV2X.3; GLUCOSE,POINT OF CARE 162 MG/DL (70-110)
[2024-09-01 08:43] VITALS: BP 106/61; PULSE 77; RESP 18; TEMP 98.3; O2SAT 97
[2024-09-01 09:17] LABS: ANION GAP 8 mmol/L (8-16); CALCIUM, TOTAL 8.3 mg/dL (8.8-10.5); CARBON DIOXIDE 28 mmol/L (22-29); CHLORIDE 99 mmol/L (98-107); CREATININE 0.95 mg/dL (0.60-1.30); GLOMERULAR FILTR. RATE CALC > 60 mL/min (>60); GLUCOSE,RANDOM 137 mg/dL (70-110); POTASSIUM 4.3 mmol/L (3.5-5.1); SODIUM SERUM 134 mmol/L (136-145); UREA NITROGEN, BLOOD 11 mg/dL (7-18)
[2024-09-01 12:05] LABS: GLUCOMETER DEV NAME(LOC) BV2X.3; GLUCOSE,POINT OF CARE 131 MG/DL (70-110)
[2024-09-01 16:25] LABS: GLUCOMETER DEV NAME(LOC) BV2X.3; GLUCOSE,POINT OF CARE 185 MG/DL (70-110)
[2024-09-01 20:18] VITALS: BP 108/72; PULSE 77; RESP 18; TEMP 97.9; O2SAT 97
[2024-09-01 20:46] LABS: GLUCOMETER DEV NAME(LOC) BV2X.3; GLUCOSE,POINT OF CARE 114 MG/DL (70-110)
[2024-09-02] VITALS (8 sets, daily range): BP systolic 97–127; BP diastolic 57–88; PULSE 70–87; RESP 17–19; TEMP 97.5–98; O2SAT 96–100
[2024-09-02 05:51] LABS: GLUCOMETER DEV NAME(LOC) BV2X.3; GLUCOSE,POINT OF CARE 130 MG/DL (70-110)
[2024-09-02 11:26] LABS: GLUCOMETER DEV NAME(LOC) BV2X.3; GLUCOSE,POINT OF CARE 158 MG/DL (70-110)
[2024-09-02] MEDS: LORazepam 2 MG TABLET PO PRN (13:55)
[2024-09-02 16:40] LABS: GLUCOMETER DEV NAME(LOC) BV2X.3; GLUCOSE,POINT OF CARE 136 MG/DL (70-110)
[2024-09-02 20:35] LABS: GLUCOMETER DEV NAME(LOC) BV2X.3; GLUCOSE,POINT OF CARE 156 MG/DL (70-110)
[2024-09-03 03:43] VITALS: BP 94/65; PULSE 105; RESP 18; TEMP 97.7; O2SAT 95
[2024-09-03 06:41] LABS: GLUCOMETER DEV NAME(LOC) BV2X.3; GLUCOSE,POINT OF CARE 145 MG/DL (70-110)
[2024-09-03 08:22] VITALS: BP 101/57; PULSE 82; RESP 17; TEMP 98.3; O2SAT 96
[2024-09-03] MEDS: GABAPENTIN 100 MG CAPSULE PO SCH (08:25)
[2024-09-03 11:41] LABS: GLUCOMETER DEV NAME(LOC) BV2X.3; GLUCOSE,POINT OF CARE 161 MG/DL (70-110)
[2024-09-03 16:31] LABS: GLUCOMETER DEV NAME(LOC) BV2X.3; GLUCOSE,POINT OF CARE 220 MG/DL (70-110)
[2024-09-03 20:13] VITALS: BP 115/84; PULSE 67; RESP 18; TEMP 97.8; O2SAT 96
[2024-09-03 23:28] VITALS: BP 115/84; PULSE 67; RESP 18; TEMP 97.8; O2SAT 96
[2024-09-04 06:20] LABS: GLUCOMETER DEV NAME(LOC) BV2X.3; GLUCOSE,POINT OF CARE 195 MG/DL (70-110)
[2024-09-04 08:27] VITALS: BP 123/71; PULSE 85; RESP 19; TEMP 97.5; O2SAT 99
[2024-09-04] MEDS: MAGNESIUM HYDROXIDE SUSPENSION 30 ML UDCUP PO PRN (09:57)
[2024-09-04 12:01] LABS: GLUCOMETER DEV NAME(LOC) BV2X.3; GLUCOSE,POINT OF CARE 128 MG/DL (70-110)
[2024-09-04 18:31] LABS: GLUCOMETER DEV NAME(LOC) BV2X.3; GLUCOSE,POINT OF CARE 188 MG/DL (70-110)
[2024-09-04 20:23] VITALS: BP 98/68; PULSE 92; RESP 16; TEMP 98.1; O2SAT 96
[2024-09-04 23:36] LABS: GLUCOMETER DEV NAME(LOC) BV2S.; GLUCOSE,POINT OF CARE 157 MG/DL (70-110)
[2024-09-05 06:06] LABS: GLUCOMETER DEV NAME(LOC) BV2X.3; GLUCOSE,POINT OF CARE 163 MG/DL (70-110)
[2024-09-05 08:17] VITALS: BP 120/69; PULSE 91; RESP 18; TEMP 98; O2SAT 99
[2024-09-05 11:31] LABS: GLUCOMETER DEV NAME(LOC) BV2X.3; GLUCOSE,POINT OF CARE 154 MG/DL (70-110)
[2024-09-05 14:22] VITALS: RESP 16
[2024-09-05 17:00] LABS: GLUCOMETER DEV NAME(LOC) BV2X.3; GLUCOSE,POINT OF CARE 193 MG/DL (70-110)
[2024-09-05 20:00] VITALS: BP 132/91; PULSE 84; RESP 17; TEMP 97.3; O2SAT 99
[2024-09-05 21:46] LABS: GLUCOMETER DEV NAME(LOC) BV2X.3; GLUCOSE,POINT OF CARE 156 MG/DL (70-110)
[2024-09-06 06:06] LABS: GLUCOMETER DEV NAME(LOC) BV2X.3; GLUCOSE,POINT OF CARE 144 MG/DL (70-110)
[2024-09-06 08:50] VITALS: BP 101/63; PULSE 77; RESP 19; TEMP 97.5; O2SAT 98
[2024-09-06 11:35] LABS: GLUCOMETER DEV NAME(LOC) BV2X.3; GLUCOSE,POINT OF CARE 178 MG/DL (70-110)
[2024-09-06 16:26] LABS: GLUCOMETER DEV NAME(LOC) BV2X.3; GLUCOSE,POINT OF CARE 147 MG/DL (70-110)
[2024-09-06 20:00] VITALS: BP 111/57; RESP 18; TEMP 98.2; O2SAT 97
[2024-09-06 20:20] LABS: GLUCOMETER DEV NAME(LOC) BV2X.3; GLUCOSE,POINT OF CARE 129 MG/DL (70-110)
[2024-09-06 21:08] VITALS: RESP 18
[2024-09-06 22:04] VITALS: RESP 17; O2SAT 99
[2024-09-06 22:08] VITALS: RESP 18
[2024-09-07 06:25] LABS: GLUCOMETER DEV NAME(LOC) BV2X.3; GLUCOSE,POINT OF CARE 147 MG/DL (70-110)
[2024-09-07 08:33] VITALS: BP 136/76; PULSE 91; RESP 17; TEMP 96.6; O2SAT 98
[2024-09-07 10:04] VITALS: RESP 17; O2SAT 99
[2024-09-07 11:41] LABS: GLUCOMETER DEV NAME(LOC) BV2X.3; GLUCOSE,POINT OF CARE 131 MG/DL (70-110)
[2024-09-07 16:31] LABS: GLUCOMETER DEV NAME(LOC) BV2X.3; GLUCOSE,POINT OF CARE 182 MG/DL (70-110)
[2024-09-07 20:19] VITALS: BP 102/59; PULSE 69; RESP 18; TEMP 97.5; O2SAT 96
[2024-09-07 22:00] LABS: GLUCOMETER DEV NAME(LOC) BV2X.3; GLUCOSE,POINT OF CARE 130 MG/DL (70-110)
[2024-09-08 06:01] LABS: GLUCOMETER DEV NAME(LOC) BV2X.3; GLUCOSE,POINT OF CARE 157 MG/DL (70-110)
[2024-09-08 06:32] VITALS: BP 109/68; PULSE 90; RESP 18; TEMP 97.2; O2SAT 95
[2024-09-08] MEDS: SERTRALINE HCL 100 MG TABLET PO SCH (08:44)
[2024-09-08 08:52] VITALS: BP 123/74; PULSE 79; RESP 18; TEMP 98; O2SAT 96
[2024-09-08 11:46] LABS: GLUCOMETER DEV NAME(LOC) BV2X.3; GLUCOSE,POINT OF CARE 123 MG/DL (70-110)
[2024-09-08 17:00] LABS: GLUCOMETER DEV NAME(LOC) BV2X.3; GLUCOSE,POINT OF CARE 204 MG/DL (70-110)
[2024-09-08 20:19] VITALS: BP 121/83; PULSE 95; RESP 18; TEMP 97.7; O2SAT 98
[2024-09-08 20:45] LABS: GLUCOMETER DEV NAME(LOC) BV2X.3; GLUCOSE,POINT OF CARE 127 MG/DL (70-110)
[2024-09-09 06:10] LABS: GLUCOMETER DEV NAME(LOC) BV2X.3; GLUCOSE,POINT OF CARE 156 MG/DL (70-110)
[2024-09-09 08:16] VITALS: RESP 19; O2SAT 97
[2024-09-09 08:22] VITALS: BP 121/69; PULSE 98; RESP 18; TEMP 98; O2SAT 99
[2024-09-09] MEDS: ONDANSETRON 4 MG TABLET PO PRN (08:57)
[2024-09-09 09:14] VITALS: RESP 17; O2SAT 96
[2024-09-09] MEDS ORDERED: MAG HYDROX/ALUMINUM HYD/SIMETH 30 ML SUSPENSION UDCUP PO PRN (11:30)
[2024-09-09] MEDS ORDERED: MAG HYDROX/ALUMINUM HYD/SIMETH ES 30 ML SUSPENSION UDCUP PO PRN (11:45)
[2024-09-09] MEDS: MAG HYDROX/ALUMINUM HYD/SIMETH ES 30 ML SUSPENSION UDCUP PO PRN (12:01)
[2024-09-09 13:06] LABS: GLUCOMETER DEV NAME(LOC) BV2X.3; GLUCOSE,POINT OF CARE 189 MG/DL (70-110)
[2024-09-09 16:45] LABS: GLUCOMETER DEV NAME(LOC) BV2X.3; GLUCOSE,POINT OF CARE 146 MG/DL (70-110)
[2024-09-09 20:41] LABS: GLUCOMETER DEV NAME(LOC) BV2X.3; GLUCOSE,POINT OF CARE 128 MG/DL (70-110)
[2024-09-09 20:44] VITALS: BP 146/88; PULSE 88; RESP 17; TEMP 98.2; O2SAT 98
[2024-09-10 02:58] VITALS: BP 101/67; PULSE 82; RESP 18; TEMP 97.5; O2SAT 96
[2024-09-10 06:06] LABS: GLUCOMETER DEV NAME(LOC) BV2X.3; GLUCOSE,POINT OF CARE 172 MG/DL (70-110)
[2024-09-10 08:31] VITALS: BP 119/68; PULSE 71; RESP 17; TEMP 98.3; O2SAT 98
[2024-09-10 12:40] LABS: GLUCOMETER DEV NAME(LOC) BV2X.3; GLUCOSE,POINT OF CARE 203 MG/DL (70-110)
[2024-09-10 20:32] VITALS: BP 98/58; PULSE 78; RESP 19; TEMP 97.6; O2SAT 98
[2024-09-10 23:01] LABS: GLUCOMETER DEV NAME(LOC) BV2X.3; GLUCOSE,POINT OF CARE 316 MG/DL (70-110)
[2024-09-10 23:01] LABS: GLUCOMETER DEV NAME(LOC) BV2X.3; GLUCOSE,POINT OF CARE 135 MG/DL (70-110)
[2024-09-11 06:35] LABS: GLUCOMETER DEV NAME(LOC) BV2X.3; GLUCOSE,POINT OF CARE 146 MG/DL (70-110)
[2024-09-11 08:16] VITALS: BP 108/66; PULSE 76; RESP 17; TEMP 98.5; O2SAT 97
[2024-09-11 12:01] LABS: GLUCOMETER DEV NAME(LOC) BV2X.3; GLUCOSE,POINT OF CARE 120 MG/DL (70-110)
[2024-09-11 22:03] VITALS: BP 119/81; PULSE 86; RESP 20; TEMP 98.3; O2SAT 96
[2024-09-12 03:36] LABS: GLUCOMETER DEV NAME(LOC) BV2X.3; GLUCOSE,POINT OF CARE 166 MG/DL (70-110)
[2024-09-12 03:36] LABS: GLUCOMETER DEV NAME(LOC) BV2X.3; GLUCOSE,POINT OF CARE 128 MG/DL (70-110)
[2024-09-12 07:10] LABS: GLUCOMETER DEV NAME(LOC) BV2X.3; GLUCOSE,POINT OF CARE 180 MG/DL (70-110)
[2024-09-12 08:06] VITALS: BP 110/72; PULSE 85; RESP 20; TEMP 98.5; O2SAT 97
[2024-09-12 11:35] LABS: GLUCOMETER DEV NAME(LOC) BV2X.3; GLUCOSE,POINT OF CARE 151 MG/DL (70-110)
[2024-09-12 16:40] LABS: GLUCOMETER DEV NAME(LOC) BV2X.3; GLUCOSE,POINT OF CARE 153 MG/DL (70-110)
[2024-09-12 20:49] VITALS: BP 116/75; PULSE 83; RESP 18; TEMP 97.6; O2SAT 98
[2024-09-12 20:56] LABS: GLUCOMETER DEV NAME(LOC) BV2X.3; GLUCOSE,POINT OF CARE 143 MG/DL (70-110)
[2024-09-13 06:00] LABS: GLUCOMETER DEV NAME(LOC) BV2X.3; GLUCOSE,POINT OF CARE 155 MG/DL (70-110)
[2024-09-13 09:05] VITALS: BP 105/66; PULSE 91; RESP 18; TEMP 97.3; O2SAT 98
[2024-09-13 11:46] LABS: GLUCOMETER DEV NAME(LOC) BV2X.3; GLUCOSE,POINT OF CARE 216 MG/DL (70-110)
[2024-09-13 16:50] LABS: GLUCOMETER DEV NAME(LOC) BV2X.3; GLUCOSE,POINT OF CARE 204 MG/DL (70-110)
[2024-09-13] MEDS ORDERED: PALI6TAB PO (17:07)
[2024-09-13] MEDS ORDERED: METF-1211 PO (17:07)
[2024-09-13] MEDS ORDERED: BUSP15 PO (17:07)
[2024-09-13] MEDS ORDERED: HYDR-4584 PO (17:07)
[2024-09-13] MEDS ORDERED: DIVA-112 PO (17:07)
[2024-09-13] MEDS ORDERED: PANT-31 PO (17:07)
[2024-09-13] MEDS ORDERED: GABA-1216 PO (17:07)
[2024-09-13] MEDS ORDERED: SERT-440 PO (17:07)
[2024-09-13 21:05] VITALS: BP 100/69; PULSE 81; RESP 18; TEMP 98.4; O2SAT 96
[2024-09-14 06:40] LABS: GLUCOMETER DEV NAME(LOC) BV2X.3; GLUCOSE,POINT OF CARE 153 MG/DL (70-110)
[2024-09-14 08:41] VITALS: BP 130/74; PULSE 92; RESP 21; TEMP 98.1; O2SAT 97
[2024-09-14 11:50] LABS: GLUCOMETER DEV NAME(LOC) BV2X.3; GLUCOSE,POINT OF CARE 191 MG/DL (70-110)
[2024-09-14 18:21] LABS: GLUCOMETER DEV NAME(LOC) BV2X.3; GLUCOSE,POINT OF CARE 209 MG/DL (70-110)
[2024-09-14 20:10] LABS: GLUCOMETER DEV NAME(LOC) BV2X.3; GLUCOSE,POINT OF CARE 107 MG/DL (70-110)
[2024-09-14 21:41] VITALS: BP 106/60; PULSE 86; RESP 18; TEMP 97.6; O2SAT 98
[2024-09-15] MEDS: LORazepam 1 MG TABLET PO PRN (01:36)
[2024-09-15 06:01] LABS: GLUCOMETER DEV NAME(LOC) BV2X.3; GLUCOSE,POINT OF CARE 223 MG/DL (70-110)
[2024-09-15 08:46] VITALS: BP 147/86; PULSE 72; RESP 18; TEMP 98; O2SAT 95
[2024-09-15 11:40] LABS: GLUCOMETER DEV NAME(LOC) BV2X.3; GLUCOSE,POINT OF CARE 153 MG/DL (70-110)
[2024-09-15 16:40] LABS: GLUCOMETER DEV NAME(LOC) BV2X.3; GLUCOSE,POINT OF CARE 133 MG/DL (70-110)
[2024-09-15 20:13] VITALS: BP 111/76; PULSE 73; RESP 18; TEMP 97.9; O2SAT 96
[2024-09-15 20:45] LABS: GLUCOMETER DEV NAME(LOC) BV2X.3; GLUCOSE,POINT OF CARE 124 MG/DL (70-110)
[2024-09-16 02:21] VITALS: BP 101/69; PULSE 91; RESP 18; TEMP 97.9; O2SAT 98
[2024-09-16 06:01] LABS: GLUCOMETER DEV NAME(LOC) BV2X.3; GLUCOSE,POINT OF CARE 125 MG/DL (70-110)
[2024-09-16 08:00] VITALS: BP 97/64; PULSE 72; RESP 17; TEMP 96.3; O2SAT 100
[2024-09-16 09:16] VITALS: RESP 18; O2SAT 96
[2024-09-16 10:16] VITALS: RESP 16; O2SAT 97
[2024-09-16 11:51] LABS: GLUCOMETER DEV NAME(LOC) BV2X.3; GLUCOSE,POINT OF CARE 172 MG/DL (70-110)
[2024-09-16 16:40] LABS: GLUCOMETER DEV NAME(LOC) BV2X.3; GLUCOSE,POINT OF CARE 256 MG/DL (70-110)
== END 2024-09-16 18:45 | disposition home or self-care (01) | DRG 885 ==
LOC: EMS 11:15 → B3A 23:49 → B2S 08-21 00:34 → B2X 08-21 00:34 → B2S 08-24 15:31 → B2X 08-26 18:19
PROVIDERS: ADMIT Psychiatry & Neurology Psychiatry; ATTEND Psychiatry & Neurology Psychiatry
PROC: GZHZZZZ Group Psychotherapy (ICD-10-PCS; principal; 2024-08-21)
PROC: GZ52ZZZ Individual Psychotherapy, Cognitive (ICD-10-PCS; 2024-08-22)
DX: F25.1 Schizoaffective disorder, depressive type (principal); E87.1 Hypo-osmolality and hyponatremia; R45.851 Suicidal ideations; Z59.19 Other inadequate housing; E11.42 Type 2 diabetes mellitus with diabetic polyneuropathy; I10 Essential (primary) hypertension; E78.5 Hyperlipidemia, unspecified; Z20.822 Contact with and (suspected) exposure to COVID-19; K21.9 Gastro-esophageal reflux disease without esophagitis; N40.0 Benign prostatic hyperplasia without lower urinary tract symptoms; M54.9 Dorsalgia, unspecified; F41.0 Panic disorder [episodic paroxysmal anxiety]; F60.9 Personality disorder, unspecified; G47.00 Insomnia, unspecified; G89.29 Other chronic pain; Z79.899 Other long term (current) drug therapy; Z91.51 Personal history of suicidal behavior; Z98.1 Arthrodesis status
CPT/HCPCS: 80048; 80053; 80061; 80076; 80307; 81001; 82948; 82962; 83036; 84443; 85025; 99285; G0480; Q0162

== ENCOUNTER 2024-09-23 09:00 | Emergency (ER) | payer MEDICARE ==
[~2024-09-23] VITALS: Ht 180.3 cm; Wt 93.6 kg
[~2024-09-23 09:00] MED LIST changes: +BUSP15 PO; -BUSP15TA3 PO; +GABA-1216 PO; -LORA1TAB25 PO; -METF-1185 PO; +METF-1211 PO; -ONDA-104 PO; +PALI6TAB PO; -PALI6TAB15 PO; -SEMA3TAB4 PO; -SERT-439 PO; +SERT-440 PO
[2024-09-23 09:39] VITALS: BP 115/69; PULSE 114; RESP 20; TEMP 98.2; O2SAT 96
[2024-09-23 09:58] LABS: COVID AG,FIA SOURCE NASAL SWAB
[2024-09-23 10:08] LABS: APPEARANCE,URINE CLEAR (CLEAR); BILIRUBIN,URINE NEGATIVE (NEGATIVE); COLOR,URINE LIGHT YELLOW (YELLOW); GLUCOSE, URINE (UA) >=1000 mg/dL (NEGATIVE); KETONES,URINE NEGATIVE (NEGATIVE); LEUKOCYTE ESTERASE ,URINE NEGATIVE (NEGATIVE); NITRATE,URINE NEGATIVE (NEGATIVE); OCCULT BLOOD,URINE NEGATIVE (NEGATIVE); PH,URINE 5.5 (5.0-8.0); PH,URINE DRUG SCREEN 5.5 (5.0-8.0); PROTEIN,URINE NEGATIVE (NEGATIVE); SPECIFIC GRAVITIY, URINE 1.009 (1.003-1.030); UROBILINOGEN,URINE <=1.0 mg/dL (<=1.0)
[2024-09-23 10:14] LABS: BASOPHILS % (AUTO) 0.3 % (0.0-2.0); EOSINOPHILS % (AUTO) 0.9 % (1.0-6.0); HEMATOCRIT 42.9 % (41-53); HEMOGLOBIN 14.5 g/dL (13.5-17.5); LYMPHOCYTES # (AUTO) 1.2 K/uL (1.0-4.8); LYMPHOCYTES % (AUTO) 11.7 % (22.0-44.0); MEAN CORPUSCULAR HEMOGLOBIN 29.3 pg (26.0-34.0); MEAN CORPUSCULAR HGB CONC 33.7 G/dL (31.0-37.0); MEAN CORPUSCULAR VOLUME 87 fL (80-100); MONOCYTES # (AUTO) 0.7 K/uL (0.1-1.0); MONOCYTES % (AUTO) 6.8 % (2.0-9.0); NEUTROPHILS # (AUTO) 7.9 K/uL (1.8-7.7); NEUTROPHILS % (AUTO) 80.3 % (40.0-70.0); PLATELET COUNT (AUTO) 288 K/uL (150-450); RED BLOOD CELL COUNT(AUTO) 4.94 MIL/uL (4.50-5.90); RED CELL DISTRIBUTION WIDTH 13.4 % (11.5-14.5); WHITE BLOOD COUNT (AUTO) 9.9 K/uL (4.5-11.0)
[2024-09-23 10:14] LABS: BACTERIA,URINE None Seen /HPF (None Seen); RBC,URINE 0-2 /HPF (0-2); WBC,URINE 0-2 /HPF (0-5)
[2024-09-23 10:15] LABS: ALCOHOL, URINE DRUG SCREEN NEGATIVE (NEGATIVE); AMPHET/METH SCREEN,URINE NEGATIVE (NEGATIVE); BARBITURATE SCREEN, URINE NEGATIVE (NEGATIVE); BENZODIAZEPINES SCREEN,URINE NEGATIVE (NEGATIVE); CANNABINOID SCREEN,URINE NEGATIVE (NEGATIVE); COCAINE SCREEN,URINE NEGATIVE (NEGATIVE); METHADONE SCREEN, URINE NEGATIVE (NEGATIVE); OPIATE SCREEN,URINE NEGATIVE (NEGATIVE); PHENCYCLIDINE SCREEN,URINE NEGATIVE (NEGATIVE)
[2024-09-23 10:19] LABS: INFLUENZA TYPE A NEGATIVE FOR TYPE A (NEGATIVE); INFLUENZA TYPE B NEGATIVE FOR TYPE B (NEGATIVE); SARS-COV2 (COVID) ANTIGEN,FIA Negative (Negative)
[2024-09-23 10:20] LABS: ANION GAP 7 mmol/L (8-16); CALCIUM, TOTAL 8.8 mg/dL (8.8-10.5); CARBON DIOXIDE 27 mmol/L (22-29); CHLORIDE 98 mmol/L (98-107); CREATININE 0.89 mg/dL (0.60-1.30); GLOMERULAR FILTR. RATE CALC > 60 mL/min (>60); GLUCOSE,RANDOM 233 mg/dL (70-110); LIPASE 81 U/L (16-77); POTASSIUM 4.7 mmol/L (3.5-5.1); SODIUM SERUM 132 mmol/L (136-145); UREA NITROGEN, BLOOD 8 mg/dL (7-18)
[2024-09-23] MEDS: LORazepam 2 MG TABLET PO ONE (10:50)
== END 2024-09-23 12:31 | disposition home or self-care (01) ==
LOC: EMS 09:35
DX: F41.9 Anxiety disorder, unspecified (principal); F25.1 Schizoaffective disorder, depressive type; E11.65 Type 2 diabetes mellitus with hyperglycemia; Z79.84 Long term (current) use of oral hypoglycemic drugs; Z79.899 Other long term (current) drug therapy; Z20.822 Contact with and (suspected) exposure to COVID-19
CPT/HCPCS: 99283; 87426; 80048; 81001; 83690; 85025; 87804; 36415; 82962; 80307; G0480

== ENCOUNTER 2024-10-08 07:41 | Emergency (ER) | payer MEDICARE ==
[~2024-10-08] VITALS: Ht 180.3 cm; Wt 93.6 kg
[2024-10-08 07:43] VITALS: TEMP 98.5
[2024-10-08] MEDS: LORazepam 2 MG TABLET PO ONE (08:15)
[2024-10-08] MEDS: MAG HYDROX/ALUMINUM HYD/SIMETH ES 30 ML SUSPENSION UDCUP PO ONE (08:15)
[2024-10-08] MEDS: FAMOTIDINE 20 MG TABLET PO ONE (08:15)
[2024-10-08 10:19] VITALS: BP 133/85; PULSE 92; RESP 19; O2SAT 98
== END 2024-10-08 10:22 | disposition home or self-care (01) ==
LOC: EMS 07:42
DX: K21.9 Gastro-esophageal reflux disease without esophagitis (principal); F41.9 Anxiety disorder, unspecified; E11.9 Type 2 diabetes mellitus without complications; F32.A Depression, unspecified; Z79.84 Long term (current) use of oral hypoglycemic drugs; Z79.899 Other long term (current) drug therapy
CPT/HCPCS: 82962; 99284; Z7502; Z7610

== ENCOUNTER 2024-10-10 13:30 | Emergency (ER) | payer MEDICARE ==
[~2024-10-10] VITALS: Ht 180.3 cm; Wt 95.5 kg
[2024-10-10 13:46] VITALS: BP 126/70; PULSE 120; RESP 16; TEMP 98.6; O2SAT 99
[2024-10-10] MEDS: LORazepam 2 MG TABLET PO ONE (14:39)
[2024-10-10] MEDS: ONDANSETRON 4 MG TABLET PO ONE (14:39)
[2024-10-10] MEDS: PB/HYOSCY/ATR/SCOP/LIDO/MAALOX 55 ML BOTTLE PO ONE (14:39)
[2024-10-10] MEDS: MetFORMIN HCL 500 MG ER TABLET PO ONE (15:05)
[2024-10-11] MEDS ORDERED: LORA1TAB25 PO (13:11)
== END 2024-10-10 16:33 | disposition home or self-care (01) ==
LOC: EMS 13:41
DX: F41.0 Panic disorder [episodic paroxysmal anxiety] (principal); F41.1 Generalized anxiety disorder; K21.9 Gastro-esophageal reflux disease without esophagitis; F32.A Depression, unspecified; E11.9 Type 2 diabetes mellitus without complications; G89.29 Other chronic pain; M54.9 Dorsalgia, unspecified; Z79.84 Long term (current) use of oral hypoglycemic drugs; Z79.899 Other long term (current) drug therapy
CPT/HCPCS: 99284; Q0162

== ENCOUNTER 2024-10-11 11:50 | Emergency (ER) | payer MEDICARE, OTHER ==
[~2024-10-11] VITALS: Ht 177.8 cm; Wt 89.0 kg
[2024-10-11 12:26] LABS: BASOPHILS % (AUTO) 0.3 % (0.0-2.0); EOSINOPHILS % (AUTO) 1.7 % (1.0-6.0); HEMATOCRIT 40.8 % (41-53); HEMOGLOBIN 13.7 g/dL (13.5-17.5); LYMPHOCYTES # (AUTO) 1.5 K/uL (1.0-4.8); LYMPHOCYTES % (AUTO) 23.3 % (22.0-44.0); MEAN CORPUSCULAR HGB CONC 33.7 G/dL (31.0-37.0); MEAN CORPUSCULAR VOLUME 86 fL (80-100); MONOCYTES # (AUTO) 0.6 K/uL (0.1-1.0); MONOCYTES % (AUTO) 9.2 % (2.0-9.0); NEUTROPHILS # (AUTO) 4.4 K/uL (1.8-7.7); NEUTROPHILS % (AUTO) 65.5 % (40.0-70.0); PLATELET COUNT (AUTO) 280 K/uL (150-450); RED BLOOD CELL COUNT(AUTO) 4.73 MIL/uL (4.50-5.90); RED CELL DISTRIBUTION WIDTH 13.5 % (11.5-14.5); WHITE BLOOD COUNT (AUTO) 6.6 K/uL (4.5-11.0)
[2024-10-11 12:50] LABS: ANION GAP 11 mmol/L (8-16); CALCIUM, TOTAL 8.7 mg/dL (8.8-10.5); CARBON DIOXIDE 23 mmol/L (22-29); CHLORIDE 100 mmol/L (98-107); CREATININE 1.08 mg/dL (0.60-1.30); GLOMERULAR FILTR. RATE CALC > 60 mL/min (>60); GLUCOSE,RANDOM 245 mg/dL (70-110); POTASSIUM 4.3 mmol/L (3.5-5.1); SODIUM SERUM 134 mmol/L (136-145); UREA NITROGEN, BLOOD 10 mg/dL (7-18)
[2024-10-11] MEDS ORDERED: LORA1TAB25 PO (13:11)
[2024-10-11 13:28] VITALS: BP 115/81; PULSE 111; RESP 20; TEMP 98.2; O2SAT 98
[2024-10-11] MEDS: LORazepam 2 MG TABLET PO ONE (13:28)
== END 2024-10-11 13:43 | disposition home or self-care (01) ==
LOC: EMS 11:52
DX: F41.9 Anxiety disorder, unspecified (principal); R10.13 Epigastric pain; E11.9 Type 2 diabetes mellitus without complications; Z79.84 Long term (current) use of oral hypoglycemic drugs; Z79.899 Other long term (current) drug therapy
CPT/HCPCS: 80048; 82962; 85025; 99283

== ENCOUNTER 2024-10-13 08:16 | Emergency (ER) | payer MEDICARE, OTHER ==
[~2024-10-13] VITALS: Ht 180.3 cm; Wt 95.0 kg
[~2024-10-13 08:16] MED LIST changes: +LORA1TAB25 PO; -TAMS0.4C94 PO
[2024-10-13 08:41] LABS: GLUCOMETER DEV NAME(LOC) ERT.6; GLUCOSE,POINT OF CARE 437 MG/DL (70-110)
[2024-10-13 08:53] LABS: BASOPHILS % (AUTO) 0.4 % (0.0-2.0); EOSINOPHILS % (AUTO) 1.3 % (1.0-6.0); HEMATOCRIT 42.8 % (41-53); LYMPHOCYTES # (AUTO) 1.1 K/uL (1.0-4.8); LYMPHOCYTES % (AUTO) 16.7 % (22.0-44.0); MEAN CORPUSCULAR HEMOGLOBIN 28.8 pg (26.0-34.0); MEAN CORPUSCULAR HGB CONC 32.8 G/dL (31.0-37.0); MEAN CORPUSCULAR VOLUME 88 fL (80-100); MONOCYTES # (AUTO) 0.7 K/uL (0.1-1.0); MONOCYTES % (AUTO) 10.8 % (2.0-9.0); NEUTROPHILS # (AUTO) 4.7 K/uL (1.8-7.7); NEUTROPHILS % (AUTO) 70.8 % (40.0-70.0); PLATELET COUNT (AUTO) 304 K/uL (150-450); RED BLOOD CELL COUNT(AUTO) 4.88 MIL/uL (4.50-5.90); RED CELL DISTRIBUTION WIDTH 13.3 % (11.5-14.5); WHITE BLOOD COUNT (AUTO) 6.7 K/uL (4.5-11.0)
[2024-10-13 08:58] LABS: APPEARANCE,URINE CLEAR (CLEAR); BILIRUBIN,URINE NEGATIVE (NEGATIVE); COLOR,URINE LIGHT YELLOW (YELLOW); GLUCOSE, URINE (UA) >=1000 mg/dL (NEGATIVE); KETONES,URINE NEGATIVE (NEGATIVE); LEUKOCYTE ESTERASE ,URINE NEGATIVE (NEGATIVE); NITRATE,URINE NEGATIVE (NEGATIVE); OCCULT BLOOD,URINE NEGATIVE (NEGATIVE); PH,URINE 5.5 (5.0-8.0); PH,URINE DRUG SCREEN 5.5 (5.0-8.0); PROTEIN,URINE NEGATIVE (NEGATIVE); SPECIFIC GRAVITIY, URINE 1.028 (1.003-1.030); UROBILINOGEN,URINE <=1.0 mg/dL (<=1.0)
[2024-10-13 08:59] LABS: RBC,URINE None Seen /HPF (0-2)
[2024-10-13 09:00] LABS: BACTERIA,URINE None Seen /HPF (None Seen); WBC,URINE None Seen /HPF (0-5)
[2024-10-13] MEDS: SODIUM CHLORIDE 0.9% 1,000 ML IV ONE ×2 (09:00→10:46)
[2024-10-13 09:03] LABS: AMPHET/METH SCREEN,URINE NEGATIVE (NEGATIVE); BARBITURATE SCREEN, URINE NEGATIVE (NEGATIVE); BENZODIAZEPINES SCREEN,URINE NEGATIVE (NEGATIVE); CANNABINOID SCREEN,URINE NEGATIVE (NEGATIVE); COCAINE SCREEN,URINE NEGATIVE (NEGATIVE); METHADONE SCREEN, URINE NEGATIVE (NEGATIVE); OPIATE SCREEN,URINE NEGATIVE (NEGATIVE); PHENCYCLIDINE SCREEN,URINE NEGATIVE (NEGATIVE)
[2024-10-13 09:05] LABS: ALCOHOL, URINE DRUG SCREEN NEGATIVE (NEGATIVE)
[2024-10-13 09:05] LABS: ANION GAP 12 mmol/L (8-16); CALCIUM, TOTAL 8.8 mg/dL (8.8-10.5); CARBON DIOXIDE 22 mmol/L (22-29); CHLORIDE 99 mmol/L (98-107); CREATININE 1.16 mg/dL (0.60-1.30); GLOMERULAR FILTR. RATE CALC > 60 mL/min (>60); SODIUM SERUM 133 mmol/L (136-145); UREA NITROGEN, BLOOD 6 mg/dL (7-18); VALPROIC ACID 3 mcg/mL (50-100)
[2024-10-13 09:06] LABS: GLUCOSE,RANDOM 410 mg/dL (70-110)
[2024-10-13 09:24] LABS: ALCOHOL, BLOOD (SERUM) < 3 mg/dL (0-10)
[2024-10-13] MEDS: LORazepam 1 MG TABLET PO ONE (09:27)
[2024-10-13 10:51] LABS: GLUCOMETER DEV NAME(LOC) ER.7; GLUCOSE,POINT OF CARE 283 MG/DL (70-110)
[2024-10-13 12:29] VITALS: TEMP 98.6
[2024-10-13] MEDS: MetFORMIN HCL 500 MG TABLET PO ONE (12:58)
[2024-10-13 13:18] VITALS: BP 121/77; PULSE 90; RESP 20; O2SAT 99
== END 2024-10-13 13:20 | disposition home or self-care (01) ==
LOC: EMS 08:18
DX: F41.0 Panic disorder [episodic paroxysmal anxiety] (principal); F33.2 Major depressive disorder, recurrent severe without psychotic features; E11.65 Type 2 diabetes mellitus with hyperglycemia; Z79.84 Long term (current) use of oral hypoglycemic drugs; Z79.899 Other long term (current) drug therapy
CPT/HCPCS: 99285; 96360; 96361; 80048; 80164; 81001; 82962 ×2; 85025; 36415; 80307; G0480; J7030

== ENCOUNTER 2024-10-19 08:03 | Emergency (ER) | payer MEDICARE, OTHER ==
[~2024-10-19] VITALS: Ht 175.3 cm; Wt 100.0 kg
[2024-10-19 08:06] VITALS: TEMP 98.1
[2024-10-19] MEDS: LORazepam 2 MG TABLET PO ONE (09:54)
[2024-10-19 10:51] VITALS: BP 111/74; PULSE 91; RESP 16; O2SAT 97
== END 2024-10-19 10:53 | disposition home or self-care (01) ==
LOC: EMS 08:13
DX: F41.0 Panic disorder [episodic paroxysmal anxiety] (principal); E11.9 Type 2 diabetes mellitus without complications; F17.210 Nicotine dependence, cigarettes, uncomplicated; Z79.84 Long term (current) use of oral hypoglycemic drugs; Z79.899 Other long term (current) drug therapy
CPT/HCPCS: 82962; 99283

== ENCOUNTER 2024-10-21 04:59 | Inpatient (IN) | payer MEDICARE, OTHER ==
[~2024-10-21] VITALS: Ht 170.2 cm; Wt 93.0 kg
[~2024-10-21 04:59] MED LIST changes: -LORA1TAB25 PO
[2024-10-21 05:33] LABS: BASOPHILS % (AUTO) 0.6 % (0.0-2.0); EOSINOPHILS % (AUTO) 1.7 % (1.0-6.0); HEMATOCRIT 41.9 % (41-53); HEMOGLOBIN 14.2 g/dL (13.5-17.5); LYMPHOCYTES # (AUTO) 1.4 K/uL (1.0-4.8); MEAN CORPUSCULAR HEMOGLOBIN 29.5 pg (26.0-34.0); MEAN CORPUSCULAR HGB CONC 33.9 G/dL (31.0-37.0); MEAN CORPUSCULAR VOLUME 87 fL (80-100); MONOCYTES # (AUTO) 0.7 K/uL (0.1-1.0); MONOCYTES % (AUTO) 11.4 % (2.0-9.0); NEUTROPHILS # (AUTO) 3.8 K/uL (1.8-7.7); NEUTROPHILS % (AUTO) 63.3 % (40.0-70.0); PLATELET COUNT (AUTO) 264 K/uL (150-450); RED BLOOD CELL COUNT(AUTO) 4.83 MIL/uL (4.50-5.90); RED CELL DISTRIBUTION WIDTH 13.7 % (11.5-14.5)
[2024-10-21 05:45] LABS: ANION GAP 10 mmol/L (8-16); CALCIUM, TOTAL 8.6 mg/dL (8.8-10.5); CARBON DIOXIDE 27 mmol/L (22-29); CHLORIDE 95 mmol/L (98-107); CREATININE 1.04 mg/dL (0.60-1.30); GLOMERULAR FILTR. RATE CALC > 60 mL/min (>60); POTASSIUM 4.3 mmol/L (3.5-5.1); SODIUM SERUM 132 mmol/L (136-145); UREA NITROGEN, BLOOD 10 mg/dL (7-18)
[2024-10-21 05:48] LABS: GLUCOSE,RANDOM 437 mg/dL (70-110)
[2024-10-21 05:56] LABS: GLUCOMETER DEV NAME(LOC) ERT.6; GLUCOSE,POINT OF CARE 442 MG/DL (70-110)
[2024-10-21 05:59] LABS: COVID AG,FIA SOURCE NASAL SWAB
[2024-10-21 06:19] LABS: ALCOHOL, BLOOD (SERUM) < 3 mg/dL (0-10)
[2024-10-21] MEDS: INSULIN REGULAR, HUMAN 100 UNITS/ML IVP ONE (06:21)
[2024-10-21] MEDS: SODIUM CHLORIDE 0.9% 1,000 ML IV ONE (06:23)
[2024-10-21 06:34] LABS: APPEARANCE,URINE CLEAR (CLEAR); BILIRUBIN,URINE NEGATIVE (NEGATIVE); COLOR,URINE COLORLESS (YELLOW); GLUCOSE, URINE (UA) >=1000 mg/dL (NEGATIVE); KETONES,URINE NEGATIVE (NEGATIVE); LEUKOCYTE ESTERASE ,URINE NEGATIVE (NEGATIVE); NITRATE,URINE NEGATIVE (NEGATIVE); OCCULT BLOOD,URINE NEGATIVE (NEGATIVE); PROTEIN,URINE NEGATIVE (NEGATIVE); UROBILINOGEN,URINE <=1.0 mg/dL (<=1.0)
[2024-10-21 06:39] LABS: SARS-COV2 (COVID) ANTIGEN,FIA Negative (Negative)
[2024-10-21 06:40] LABS: AMPHET/METH SCREEN,URINE NEGATIVE (NEGATIVE); BARBITURATE SCREEN, URINE NEGATIVE (NEGATIVE); BENZODIAZEPINES SCREEN,URINE NEGATIVE (NEGATIVE); CANNABINOID SCREEN,URINE NEGATIVE (NEGATIVE); COCAINE SCREEN,URINE NEGATIVE (NEGATIVE); METHADONE SCREEN, URINE NEGATIVE (NEGATIVE); OPIATE SCREEN,URINE NEGATIVE (NEGATIVE); PHENCYCLIDINE SCREEN,URINE NEGATIVE (NEGATIVE)
[2024-10-21] MEDS: LORazepam 1 MG TABLET PO ONE (06:42)
[2024-10-21 06:43] LABS: ALCOHOL, URINE DRUG SCREEN NEGATIVE (NEGATIVE)
[2024-10-21 07:10] LABS: RBC,URINE None Seen /HPF (0-2); WBC,URINE None Seen /HPF (0-5)
[2024-10-21 07:11] LABS: BACTERIA,URINE None Seen /HPF (None Seen)
[2024-10-21] MEDS: LORazepam 2 MG TABLET PO PRN (10:30)
[2024-10-21] MEDS: HALOPERIDOL 5 MG TABLET PO PRN (10:30)
[2024-10-21 10:36] LABS: GLUCOMETER DEV NAME(LOC) ERT.6; GLUCOSE,POINT OF CARE 285 MG/DL (70-110)
[2024-10-21 17:26] VITALS: BP 130/76; PULSE 100; RESP 17; TEMP 97.3; O2SAT 98
[2024-10-21 18:25] VITALS: BP 117/87; PULSE 104; RESP 18
[2024-10-21] MEDS: ZOLPIDEM TARTRATE 10 MG TABLET PO PRN (20:22)
[2024-10-21 23:00] VITALS: BP 117/87; PULSE 104; RESP 18
[2024-10-22] MEDS ORDERED: MAGNESIUM HYDROXIDE SUSPENSION 30 ML UDCUP PO PRN (06:45)
[2024-10-22] MEDS ORDERED: PETROLATUM,WHITE 28 GM JELLY TP PRN (06:45)
[2024-10-22] MEDS ORDERED: OMEPRAZOLE 20 MG CAPSULE PO PRN (06:45)
[2024-10-22] MEDS ORDERED: GLUCAGON,HUMAN RECOMBINANT 1 MG VIAL IM PRN (06:45)
[2024-10-22] MEDS ORDERED: DOCUSATE SODIUM 100 MG CAPSULE PO PRN (06:45)
[2024-10-22] MEDS ORDERED: BACITRACIN 28 GM OINTMENT TP PRN (06:45)
[2024-10-22] MEDS ORDERED: ALBUTEROL SULFATE HFA 90 MCG/PUFF 8 GM INHALER IH PRN (06:45)
[2024-10-22] MEDS ORDERED: BENZOCAINE/MENTHOL [CEPACOL] LOZENGE PO PRN (06:45)
[2024-10-22] MEDS ORDERED: CloNIDine HCL 0.1 MG TABLET PO PRN (06:45)
[2024-10-22] MEDS: GABAPENTIN 100 MG CAPSULE PO SCH (08:13)
[2024-10-22] MEDS: MetFORMIN HCL 500 MG TABLET PO SCH (08:13)
[2024-10-22 08:36] VITALS: BP 134/83; RESP 19; TEMP 97.2; O2SAT 95
[2024-10-22] MEDS: INSULIN LISPRO 100 UNITS/ML SQ PRN (11:27)
[2024-10-22 11:50] LABS: GLUCOMETER DEV NAME(LOC) BV2X.3; GLUCOSE,POINT OF CARE 268 MG/DL (70-110)
[2024-10-22 13:28] VITALS: BP 134/83; PULSE 105; RESP 19; TEMP 97.2; O2SAT 95
[2024-10-22] MEDS: MAG HYDROX/ALUMINUM HYD/SIMETH ES 30 ML SUSPENSION UDCUP PO PRN (13:48)
[2024-10-22] MEDS: DIVALPROEX SODIUM 500 MG DR TABLET PO SCH (16:27)
[2024-10-22] MEDS: BusPIRone HCL 15 MG TABLET PO SCH (16:27)
[2024-10-22 16:46] LABS: GLUCOMETER DEV NAME(LOC) BV2X.3; GLUCOSE,POINT OF CARE 226 MG/DL (70-110)
[2024-10-22] MEDS: ATORVASTATIN CALCIUM 20 MG TABLET PO SCH (20:28)
[2024-10-22 20:51] LABS: GLUCOMETER DEV NAME(LOC) BV2X.3; GLUCOSE,POINT OF CARE 293 MG/DL (70-110)
[2024-10-23 02:39] VITALS: BP 142/87; PULSE 97; RESP 18; TEMP 98.5; O2SAT 98
[2024-10-23] MEDS: ACETAMINOPHEN 325 MG TABLET PO PRN (02:39)
[2024-10-23 03:39] VITALS: RESP 17
[2024-10-23 06:15] LABS: GLUCOMETER DEV NAME(LOC) BV2X.3; GLUCOSE,POINT OF CARE 278 MG/DL (70-110)
[2024-10-23] MEDS: PALIPERIDONE 6 MG ER TABLET PO SCH (08:02)
[2024-10-23 09:05] VITALS: BP 148/76; PULSE 67; RESP 16; TEMP 98.3; O2SAT 95
[2024-10-23 11:35] LABS: GLUCOMETER DEV NAME(LOC) BV2X.3; GLUCOSE,POINT OF CARE 311 MG/DL (70-110)
[2024-10-23 16:55] LABS: GLUCOMETER DEV NAME(LOC) BV2X.3; GLUCOSE,POINT OF CARE 354 MG/DL (70-110)
[2024-10-23 21:03] VITALS: BP 139/88; PULSE 118; RESP 18; TEMP 97.9; O2SAT 97
[2024-10-23 21:20] LABS: GLUCOMETER DEV NAME(LOC) BV2X.3; GLUCOSE,POINT OF CARE 160 MG/DL (70-110)
[2024-10-24] VITALS (10 sets, daily range): BP systolic 121–155; BP diastolic 77–89; PULSE 93–128; RESP 16–18; TEMP 98.1–98.3; O2SAT 96–98
[2024-10-24 06:25] LABS: GLUCOMETER DEV NAME(LOC) BV2X.3; GLUCOSE,POINT OF CARE 311 MG/DL (70-110)
[2024-10-24 11:45] LABS: GLUCOMETER DEV NAME(LOC) BV2X.3; GLUCOSE,POINT OF CARE 288 MG/DL (70-110)
[2024-10-24] MEDS: IBUPROFEN 600 MG TABLET PO PRN (15:01)
[2024-10-24 16:36] LABS: GLUCOMETER DEV NAME(LOC) BV2X.3; GLUCOSE,POINT OF CARE 285 MG/DL (70-110)
[2024-10-24 20:26] LABS: GLUCOMETER DEV NAME(LOC) BV2X.3; GLUCOSE,POINT OF CARE 200 MG/DL (70-110)
[2024-10-25] VITALS (9 sets, daily range): BP systolic 106–124; BP diastolic 59–79; PULSE 115–130; RESP 18; TEMP 97–98.7; O2SAT 95–98
[2024-10-25] MEDS: ONDANSETRON 4 MG TABLET PO PRN (00:52)
[2024-10-25 06:36] LABS: GLUCOMETER DEV NAME(LOC) BV2X.3; GLUCOSE,POINT OF CARE 294 MG/DL (70-110)
[2024-10-25 11:06] LABS: GLUCOMETER DEV NAME(LOC) ERT.6; GLUCOSE,POINT OF CARE 301 MG/DL (70-110)
[2024-10-25 17:15] LABS: GLUCOMETER DEV NAME(LOC) BV2X.3; GLUCOSE,POINT OF CARE 304 MG/DL (70-110)
[2024-10-25 21:30] LABS: GLUCOMETER DEV NAME(LOC) BV2X.3; GLUCOSE,POINT OF CARE 94 MG/DL (70-110)
[2024-10-26] VITALS: BP 104/71; PULSE 127; RESP 18; TEMP 96.7
[2024-10-26 00:11] LABS: GLUCOMETER DEV NAME(LOC) BV2X.3; GLUCOSE,POINT OF CARE 241 MG/DL (70-110)
[2024-10-26 00:30] VITALS: BP 97/60; PULSE 130; RESP 18; TEMP 97
[2024-10-26 01:00] VITALS: BP 106/72; PULSE 120; RESP 18; TEMP 97
[2024-10-26 05:25] VITALS: BP 141/81; PULSE 116; RESP 18; TEMP 97
[2024-10-26 07:15] LABS: GLUCOMETER DEV NAME(LOC) BV2X.3; GLUCOSE,POINT OF CARE 252 MG/DL (70-110)
[2024-10-26 09:19] VITALS: BP 117/81; PULSE 122; RESP 16; TEMP 97.2; O2SAT 97
[2024-10-26 12:35] LABS: GLUCOMETER DEV NAME(LOC) BV2X.3; GLUCOSE,POINT OF CARE 228 MG/DL (70-110)
[2024-10-26 12:40] VITALS: BP 90/60; PULSE 112
[2024-10-26 16:51] LABS: GLUCOMETER DEV NAME(LOC) BV2X.3; GLUCOSE,POINT OF CARE 177 MG/DL (70-110)
[2024-10-26] MEDS: LOPERAMIDE HCL 2 MG CAPSULE PO PRN (18:45)
[2024-10-26 20:45] LABS: GLUCOMETER DEV NAME(LOC) BV2X.3; GLUCOSE,POINT OF CARE 191 MG/DL (70-110)
[2024-10-29] MEDS ORDERED: ALBU18HF12 IH (11:12)
[2024-10-29] MEDS ORDERED: AMOX-457 PO (11:12)
[2024-10-29] MEDS ORDERED: DULO20CA30 PO (11:12)
[2024-10-29] MEDS ORDERED: GABA-1181 PO (11:12)
[2024-10-29] MEDS ORDERED: OLAN10TA26 PO (11:12)
== END 2024-10-27 04:53 | disposition still patient (30) | DRG 885 ==
LOC: EMS 05:00 → B2X 12:48
PROVIDERS: ADMIT Psychiatry & Neurology Psychiatry; ATTEND Psychiatry & Neurology Psychiatry
DX: F31.9 Bipolar disorder, unspecified (principal); R45.851 Suicidal ideations; F41.9 Anxiety disorder, unspecified; E11.9 Type 2 diabetes mellitus without complications; F12.90 Cannabis use, unspecified, uncomplicated; Z20.822 Contact with and (suspected) exposure to COVID-19; G89.29 Other chronic pain; G47.00 Insomnia, unspecified; I10 Essential (primary) hypertension; K59.00 Constipation, unspecified; Z87.891 Personal history of nicotine dependence; Z98.1 Arthrodesis status
CPT/HCPCS: 80048; 80307; 81001; 82009; 82962; 85025; 99285; G0480; J1815; Q0162

== ENCOUNTER 2024-10-30 13:17 | Emergency (ER) | payer MEDICARE ==
[~2024-10-30] VITALS: Ht 177.8 cm; Wt 90.9 kg
[~2024-10-30 13:17] MED LIST changes: +ALBU18HF12 IH; +AMOX-457 PO; +DULO20CA30 PO; +GABA-1181 PO; -GABA-1216 PO; +OLAN10TA26 PO
[2024-10-30 13:30] VITALS: TEMP 98.2
[2024-10-30] MEDS ORDERED: OLAN10TA22 PO (13:34)
[2024-10-30] MEDS ORDERED: DULO20CA70 PO (13:34)
[2024-10-30 14:23] LABS: BASOPHILS % (AUTO) 0.9 % (0.0-2.0); EOSINOPHILS % (AUTO) 1.1 % (1.0-6.0); HEMATOCRIT 39.3 % (41-53); HEMOGLOBIN 13.2 g/dL (13.5-17.5); LYMPHOCYTES # (AUTO) 0.9 K/uL (1.0-4.8); LYMPHOCYTES % (AUTO) 10.2 % (22.0-44.0); MEAN CORPUSCULAR HEMOGLOBIN 29.3 pg (26.0-34.0); MEAN CORPUSCULAR HGB CONC 33.5 G/dL (31.0-37.0); MEAN CORPUSCULAR VOLUME 88 fL (80-100); MONOCYTES # (AUTO) 0.9 K/uL (0.1-1.0); MONOCYTES % (AUTO) 9.8 % (2.0-9.0); NEUTROPHILS # (AUTO) 6.9 K/uL (1.8-7.7); PLATELET COUNT (AUTO) 318 K/uL (150-450); RED BLOOD CELL COUNT(AUTO) 4.49 MIL/uL (4.50-5.90); WHITE BLOOD COUNT (AUTO) 8.9 K/uL (4.5-11.0)
[2024-10-30 14:32] LABS: ANION GAP 8 mmol/L (8-16); CALCIUM, TOTAL 9.8 mg/dL (8.8-10.5); CARBON DIOXIDE 27 mmol/L (22-29); CHLORIDE 95 mmol/L (98-107); CREATININE 0.97 mg/dL (0.60-1.30); GLOMERULAR FILTR. RATE CALC > 60 mL/min (>60); GLUCOSE,RANDOM 333 mg/dL (70-110); POTASSIUM 4.5 mmol/L (3.5-5.1); SODIUM SERUM 130 mmol/L (136-145); UREA NITROGEN, BLOOD 12 mg/dL (7-18)
[2024-10-30] MEDS: LORazepam 1 MG TABLET PO ONE (14:44)
[2024-10-30 16:00] VITALS: BP 111/78; PULSE 84; RESP 18; O2SAT 98
== END 2024-10-30 16:32 | disposition home or self-care (01) ==
LOC: EMS 13:30
DX: S00.93XA Contusion of unspecified part of head, initial encounter (principal); S60.221A Contusion of right hand, initial encounter; M54.50 Low back pain, unspecified; M54.2 Cervicalgia; F17.210 Nicotine dependence, cigarettes, uncomplicated; E11.9 Type 2 diabetes mellitus without complications; Z79.899 Other long term (current) drug therapy; W22.8XXA Striking against or struck by other objects, initial encounter; Y93.89 Activity, other specified; Y92.89 Other specified places as the place of occurrence of the external cause; Y99.8 Other external cause status
CPT/HCPCS: 70450; 72125; 72131; 80048; 82962; 85025; 99284

== ENCOUNTER 2024-10-30 18:10 | Emergency (ER) | payer MEDICARE ==
[~2024-10-30] VITALS: Ht 180.3 cm; Wt 93.2 kg
[~2024-10-30 18:10] MED LIST changes: +DULO20CA70 PO; +OLAN10TA22 PO
[2024-10-30 19:26] VITALS: TEMP 98.6
[2024-10-30 23:02] LABS: BASOPHILS % (AUTO) 0.5 % (0.0-2.0); EOSINOPHILS % (AUTO) 1.2 % (1.0-6.0); HEMATOCRIT 38.4 % (41-53); HEMOGLOBIN 13.1 g/dL (13.5-17.5); LYMPHOCYTES # (AUTO) 1.8 K/uL (1.0-4.8); LYMPHOCYTES % (AUTO) 20.5 % (22.0-44.0); MEAN CORPUSCULAR HEMOGLOBIN 29.5 pg (26.0-34.0); MEAN CORPUSCULAR VOLUME 87 fL (80-100); MONOCYTES # (AUTO) 1.2 K/uL (0.1-1.0); NEUTROPHILS # (AUTO) 5.8 K/uL (1.8-7.7); NEUTROPHILS % (AUTO) 64.8 % (40.0-70.0); PLATELET COUNT (AUTO) 289 K/uL (150-450); RED BLOOD CELL COUNT(AUTO) 4.43 MIL/uL (4.50-5.90); RED CELL DISTRIBUTION WIDTH 13.1 % (11.5-14.5); WHITE BLOOD COUNT (AUTO) 8.9 K/uL (4.5-11.0)
[2024-10-30 23:18] LABS: LACTIC ACID 1.2 mmol/L (0.4-2.0)
[2024-10-30 23:22] LABS: ANION GAP 11 mmol/L (8-16); CALCIUM, TOTAL 9.4 mg/dL (8.8-10.5); CARBON DIOXIDE 28 mmol/L (22-29); CHLORIDE 99 mmol/L (98-107); CREATININE 0.93 mg/dL (0.60-1.30); GLOMERULAR FILTR. RATE CALC > 60 mL/min (>60); GLUCOSE,RANDOM 249 mg/dL (70-110); POTASSIUM 3.9 mmol/L (3.5-5.1); SODIUM SERUM 137 mmol/L (136-145); UREA NITROGEN, BLOOD 13 mg/dL (7-18)
[2024-10-30 23:28] LABS: CREATINE KINASE, TOTAL ONLY 907 U/L (39-308); LIPASE 56 U/L (16-77); TROPONIN I-HIGH SENSITIVITY 5 ng/L (<76)
[2024-10-31 02:59] VITALS: BP 133/64; PULSE 80; RESP 15; O2SAT 96
== END 2024-10-31 02:58 | disposition home or self-care (01) ==
LOC: EMS 18:10
DX: F25.1 Schizoaffective disorder, depressive type (principal); F41.9 Anxiety disorder, unspecified; E11.65 Type 2 diabetes mellitus with hyperglycemia; F17.210 Nicotine dependence, cigarettes, uncomplicated; Z79.899 Other long term (current) drug therapy
CPT/HCPCS: 80048; 82550; 82962; 83605; 83690; 84484; 85025; 93005; 99284

== ENCOUNTER 2024-11-04 09:03 | Emergency (ER) | payer MEDICARE ==
[~2024-11-04] VITALS: Ht 180.3 cm; Wt 95.0 kg
[~2024-11-04 09:03] MED LIST changes: -BENZ0.5T52 PO; -BUSP15 PO; -DIVA-112 PO; -DULO20CA30 PO; -HYDR-4584 PO; -METF-1211 PO; -OLAN10TA26 PO; -PALI6TAB PO; -PANT-31 PO; -SERT-440 PO; -TRAZ-283 PO
[2024-11-04 09:08] VITALS: TEMP 97.7
[2024-11-04 09:26] LABS: GLUCOMETER DEV NAME(LOC) ERT.6; GLUCOSE,POINT OF CARE 286 MG/DL (70-110)
[2024-11-04] MEDS: HydrOXYzine HCL 50 MG TABLET PO ONE (10:30)
[2024-11-04] MEDS: RisperiDONE 1 MG TABLET PO ONE (11:51)
[2024-11-04 12:17] VITALS: BP 124/80; PULSE 96; RESP 20; O2SAT 98
== END 2024-11-04 12:36 | disposition home or self-care (01) ==
LOC: EMS 09:03
DX: F41.0 Panic disorder [episodic paroxysmal anxiety] (principal); E11.9 Type 2 diabetes mellitus without complications; F17.210 Nicotine dependence, cigarettes, uncomplicated; Z79.899 Other long term (current) drug therapy
CPT/HCPCS: 82962; 99283

== ENCOUNTER 2024-11-10 14:02 | Emergency (ER) | payer MEDICARE ==
[~2024-11-10] VITALS: Ht 180.3 cm; Wt 93.2 kg
[~2024-11-10 14:02] MED LIST changes: +DULO20CA19 PO; -DULO20CA70 PO
[2024-11-10 14:36] LABS: GLUCOMETER DEV NAME(LOC) AHU.; GLUCOSE,POINT OF CARE 291 MG/DL (70-110)
[2024-11-10 16:03] LABS: COVID AG,FIA SOURCE NASAL SWAB
[2024-11-10 16:08] LABS: APPEARANCE,URINE CLEAR (CLEAR); BILIRUBIN,URINE NEGATIVE (NEGATIVE); COLOR,URINE COLORLESS (YELLOW); GLUCOSE, URINE (UA) >=1000 mg/dL (NEGATIVE); KETONES,URINE NEGATIVE (NEGATIVE); LEUKOCYTE ESTERASE ,URINE NEGATIVE (NEGATIVE); NITRATE,URINE NEGATIVE (NEGATIVE); OCCULT BLOOD,URINE NEGATIVE (NEGATIVE); PROTEIN,URINE NEGATIVE (NEGATIVE); SPECIFIC GRAVITIY, URINE 1.001 (1.003-1.030); UROBILINOGEN,URINE <=1.0 mg/dL (<=1.0)
[2024-11-10 16:09] LABS: BASOPHILS % (AUTO) 0.5 % (0.0-2.0); EOSINOPHILS % (AUTO) 1.5 % (1.0-6.0); HEMATOCRIT 40.7 % (41-53); HEMOGLOBIN 13.9 g/dL (13.5-17.5); LYMPHOCYTES # (AUTO) 1.7 K/uL (1.0-4.8); LYMPHOCYTES % (AUTO) 24.5 % (22.0-44.0); MEAN CORPUSCULAR HEMOGLOBIN 29.8 pg (26.0-34.0); MEAN CORPUSCULAR HGB CONC 34.2 G/dL (31.0-37.0); MEAN CORPUSCULAR VOLUME 87 fL (80-100); MONOCYTES # (AUTO) 0.6 K/uL (0.1-1.0); MONOCYTES % (AUTO) 8.9 % (2.0-9.0); NEUTROPHILS # (AUTO) 4.6 K/uL (1.8-7.7); NEUTROPHILS % (AUTO) 64.6 % (40.0-70.0); PLATELET COUNT (AUTO) 315 K/uL (150-450); RED BLOOD CELL COUNT(AUTO) 4.67 MIL/uL (4.50-5.90); RED CELL DISTRIBUTION WIDTH 14.4 % (11.5-14.5)
[2024-11-10 16:13] LABS: ALCOHOL, URINE DRUG SCREEN NEGATIVE (NEGATIVE); AMPHET/METH SCREEN,URINE NEGATIVE (NEGATIVE); BARBITURATE SCREEN, URINE NEGATIVE (NEGATIVE); BENZODIAZEPINES SCREEN,URINE NEGATIVE (NEGATIVE); CANNABINOID SCREEN,URINE NEGATIVE (NEGATIVE); COCAINE SCREEN,URINE NEGATIVE (NEGATIVE); METHADONE SCREEN, URINE NEGATIVE (NEGATIVE); OPIATE SCREEN,URINE NEGATIVE (NEGATIVE); PHENCYCLIDINE SCREEN,URINE NEGATIVE (NEGATIVE)
[2024-11-10 16:19] LABS: ANION GAP 10 mmol/L (8-16); CALCIUM, TOTAL 8.2 mg/dL (8.8-10.5); CARBON DIOXIDE 27 mmol/L (22-29); CHLORIDE 100 mmol/L (98-107); CREATININE 1.03 mg/dL (0.60-1.30); GLOMERULAR FILTR. RATE CALC > 60 mL/min (>60); GLUCOSE,RANDOM 278 mg/dL (70-110); POTASSIUM 4.1 mmol/L (3.5-5.1); SODIUM SERUM 137 mmol/L (136-145); UREA NITROGEN, BLOOD 10 mg/dL (7-18)
[2024-11-10 16:26] VITALS: BP 135/117; PULSE 81; RESP 18; TEMP 98.1; O2SAT 100
[2024-11-10] MEDS: LORazepam 2 MG TABLET PO ONE (16:26)
[2024-11-10 16:38] LABS: SARS-COV2 (COVID) ANTIGEN,FIA Negative (Negative)
[2024-11-10 16:44] LABS: RBC,URINE None Seen /HPF (0-2)
[2024-11-10 16:45] LABS: BACTERIA,URINE None Seen /HPF (None Seen); SQUAMOUS EPITHELIAL CELL,UR None Seen /LPF (None Seen); WBC,URINE None Seen /HPF (0-5)
== END 2024-11-10 19:01 | disposition home or self-care (01) ==
LOC: EMS 14:06
DX: F41.9 Anxiety disorder, unspecified (principal); E11.9 Type 2 diabetes mellitus without complications; F17.210 Nicotine dependence, cigarettes, uncomplicated; Z79.899 Other long term (current) drug therapy; Z20.822 Contact with and (suspected) exposure to COVID-19
CPT/HCPCS: 99283; 87426; 80048; 82962; 85025; 36415; 80307; 81001; G0480

== ENCOUNTER 2024-11-13 07:11 | Inpatient (IN) | payer MEDICARE ==
[~2024-11-13] VITALS: Ht 180.3 cm; Wt 92.1 kg
[~2024-11-13 07:11] MED LIST changes: -AMOX-457 PO
[2024-11-13] MEDS ORDERED: METF-1185 PO (07:16)
[2024-11-13] MEDS ORDERED: HYDR50CA7 PO (07:16)
[2024-11-13] MEDS ORDERED: RISP0.5T80 PO (07:16)
[2024-11-13 07:35] LABS: GLUCOMETER DEV NAME(LOC) ER.7; GLUCOSE,POINT OF CARE 249 MG/DL (70-110)
[2024-11-13 08:11] LABS: BASOPHILS % (AUTO) 0.5 % (0.0-2.0); EOSINOPHILS % (AUTO) 1.9 % (1.0-6.0); HEMATOCRIT 41.5 % (41-53); HEMOGLOBIN 14.1 g/dL (13.5-17.5); LYMPHOCYTES # (AUTO) 1.4 K/uL (1.0-4.8); LYMPHOCYTES % (AUTO) 21.6 % (22.0-44.0); MEAN CORPUSCULAR HEMOGLOBIN 29.6 pg (26.0-34.0); MEAN CORPUSCULAR VOLUME 87 fL (80-100); MONOCYTES # (AUTO) 0.5 K/uL (0.1-1.0); MONOCYTES % (AUTO) 8.6 % (2.0-9.0); NEUTROPHILS # (AUTO) 4.2 K/uL (1.8-7.7); NEUTROPHILS % (AUTO) 67.4 % (40.0-70.0); PLATELET COUNT (AUTO) 287 K/uL (150-450); RED BLOOD CELL COUNT(AUTO) 4.77 MIL/uL (4.50-5.90); RED CELL DISTRIBUTION WIDTH 14.7 % (11.5-14.5); WHITE BLOOD COUNT (AUTO) 6.3 K/uL (4.5-11.0)
[2024-11-13 08:39] LABS: ANION GAP 5 mmol/L (8-16); CALCIUM, TOTAL 8.6 mg/dL (8.8-10.5); CARBON DIOXIDE 29 mmol/L (22-29); CHLORIDE 102 mmol/L (98-107); CREATININE 0.96 mg/dL (0.60-1.30); GLOMERULAR FILTR. RATE CALC > 60 mL/min (>60); GLUCOSE,RANDOM 240 mg/dL (70-110); SODIUM SERUM 136 mmol/L (136-145); UREA NITROGEN, BLOOD 11 mg/dL (7-18)
[2024-11-13 09:05] LABS: APPEARANCE,URINE CLEAR (CLEAR); BILIRUBIN,URINE NEGATIVE (NEGATIVE); COLOR,URINE COLORLESS (YELLOW); GLUCOSE, URINE (UA) 300-500 mg/dL (NEGATIVE); KETONES,URINE NEGATIVE (NEGATIVE); LEUKOCYTE ESTERASE ,URINE NEGATIVE (NEGATIVE); NITRATE,URINE NEGATIVE (NEGATIVE); OCCULT BLOOD,URINE NEGATIVE (NEGATIVE); PROTEIN,URINE NEGATIVE (NEGATIVE); SPECIFIC GRAVITIY, URINE 1.004 (1.003-1.030); UROBILINOGEN,URINE <=1.0 mg/dL (<=1.0)
[2024-11-13 09:09] LABS: ALCOHOL, URINE DRUG SCREEN NEGATIVE (NEGATIVE); CANNABINOID SCREEN,URINE NEGATIVE (NEGATIVE); COCAINE SCREEN,URINE NEGATIVE (NEGATIVE); METHADONE SCREEN, URINE NEGATIVE (NEGATIVE); OPIATE SCREEN,URINE NEGATIVE (NEGATIVE); PHENCYCLIDINE SCREEN,URINE NEGATIVE (NEGATIVE)
[2024-11-13] MEDS ORDERED: LORazepam 2 MG TABLET PO PRN (09:15)
[2024-11-13 09:16] LABS: BACTERIA,URINE None Seen /HPF (None Seen); RBC,URINE None Seen /HPF (0-2); WBC,URINE None Seen /HPF (0-5)
[2024-11-13 09:19] LABS: AMPHET/METH SCREEN,URINE NEGATIVE (NEGATIVE); BARBITURATE SCREEN, URINE NEGATIVE (NEGATIVE); BENZODIAZEPINES SCREEN,URINE NEGATIVE (NEGATIVE)
[2024-11-13] MEDS: haloperidoL 5 MG TABLET PO PRN (11:24)
[2024-11-13] MEDS: LORazepam 1 MG TABLET PO PRN (11:24)
[2024-11-13] MEDS: ZOLPIDEM TARTRATE 10 MG TABLET PO PRN (12:49)
[2024-11-13 16:42] VITALS: O2SAT 100
[2024-11-13] MEDS: ACETAMINOPHEN 325 MG TABLET PO ONE (18:02)
[2024-11-13] MEDS: PB/HYOSCY/ATR/SCOP/LIDO/MAALOX 55 ML BOTTLE PO ONE (21:22)
[2024-11-13 21:24] LABS: COVID AG,FIA SOURCE NASAL SWAB
[2024-11-13 21:46] LABS: SARS-COV2 (COVID) ANTIGEN,FIA Negative (Negative)
[2024-11-13 22:10] LABS: GLUCOMETER DEV NAME(LOC) ERT.7; GLUCOSE,POINT OF CARE 198 MG/DL (70-110)
[2024-11-13 23:00] VITALS: BP 129/79; PULSE 91; RESP 18; TEMP 96.9; O2SAT 100
[2024-11-14] MEDS ORDERED: ALBUTEROL SULFATE HFA 90 MCG/PUFF 8 GM INHALER IH PRN (05:30)
[2024-11-14] MEDS ORDERED: CloNIDine HCL 0.1 MG TABLET PO PRN (05:30)
[2024-11-14] MEDS ORDERED: LOPERAMIDE HCL 2 MG CAPSULE PO PRN (05:30)
[2024-11-14] MEDS ORDERED: DEXTROSE 50%-WATER 25 GM/50 ML SYRINGE IVP PRN (05:30)
[2024-11-14] MEDS ORDERED: BENZOCAINE/MENTHOL [CEPACOL] LOZENGE PO PRN (05:30)
[2024-11-14] MEDS ORDERED: DOCUSATE SODIUM 100 MG CAPSULE PO PRN (05:30)
[2024-11-14] MEDS ORDERED: PETROLATUM,WHITE 28 GM JELLY TP PRN (05:30)
[2024-11-14] MEDS ORDERED: BACITRACIN 28 GM OINTMENT TP PRN (05:30)
[2024-11-14] MEDS: MAG HYDROX/ALUMINUM HYD/SIMETH ES 30 ML SUSPENSION UDCUP PO PRN (05:35)
[2024-11-14] MEDS ORDERED: GLUCAGON,HUMAN RECOMBINANT 1 MG VIAL IM PRN (05:45)
[2024-11-14 06:10] LABS: GLUCOMETER DEV NAME(LOC) 3E.I 2; GLUCOSE,POINT OF CARE 247 MG/DL (70-110)
[2024-11-14] MEDS: MetFORMIN HCL 500 MG TABLET PO SCH (06:47)
[2024-11-14] MEDS: INSULIN LISPRO 100 UNITS/ML SQ PRN (06:48)
[2024-11-14 07:10] LABS: CHOL/HDL RATIO 3.6 (4.2-7.3)
[2024-11-14 07:15] LABS: HEMOGLOBIN A1C 8.3 % (3.8-5.6)
[2024-11-14 08:18] VITALS: RESP 18
[2024-11-14] MEDS ORDERED: HydrOXYzine PAMOATE 25 MG CAPSULE PO PRN (09:45)
[2024-11-14] MEDS: DULoxetine HCL 20 MG CAPSULE PO SCH (10:32)
[2024-11-14] MEDS: MAGNESIUM HYDROXIDE SUSPENSION 30 ML UDCUP PO PRN (11:14)
[2024-11-14 11:51] LABS: GLUCOMETER DEV NAME(LOC) 3E.I 2; GLUCOSE,POINT OF CARE 263 MG/DL (70-110)
[2024-11-14 12:20] VITALS: BP 125/75; PULSE 89; RESP 18; O2SAT 99
[2024-11-14] MEDS: IBUPROFEN 600 MG TABLET PO PRN (12:20)
[2024-11-14] MEDS: RisperiDONE 0.5 MG TABLET PO SCH (13:13)
[2024-11-14 17:30] LABS: GLUCOMETER DEV NAME(LOC) 3E.I 2; GLUCOSE,POINT OF CARE 174 MG/DL (70-110)
[2024-11-14 20:11] LABS: GLUCOMETER DEV NAME(LOC) 3E.I 2; GLUCOSE,POINT OF CARE 191 MG/DL (70-110)
[2024-11-14] MEDS: ATORVASTATIN CALCIUM 20 MG TABLET PO SCH (20:15)
[2024-11-14] MEDS: OLANZapine 10 MG TABLET PO SCH (20:15)
[2024-11-14 23:04] VITALS: BP 156/100; PULSE 100; RESP 18; TEMP 98.3; O2SAT 100
[2024-11-15] MEDS: NICOTINE 14 MG/24 HOUR PATCH TD SCH (08:20)
[2024-11-15 08:52] VITALS: RESP 18
[2024-11-15 12:35] LABS: GLUCOMETER DEV NAME(LOC) 3E.I 2; GLUCOSE,POINT OF CARE 220 MG/DL (70-110)
[2024-11-15 19:10] LABS: GLUCOMETER DEV NAME(LOC) 3E.I 2; GLUCOSE,POINT OF CARE 254 MG/DL (70-110)
[2024-11-15 20:21] LABS: GLUCOMETER DEV NAME(LOC) 3E.I 2; GLUCOSE,POINT OF CARE 162 MG/DL (70-110)
[2024-11-15 22:43] VITALS: BP 128/84; PULSE 78; RESP 18; TEMP 97.5; O2SAT 98
[2024-11-16] MEDS: ACETAMINOPHEN 325 MG TABLET PO PRN (02:11)
[2024-11-16 02:12] VITALS: BP 127/92; PULSE 98; RESP 20; TEMP 97.6; O2SAT 100
[2024-11-16 05:46] LABS: GLUCOMETER DEV NAME(LOC) 3E.I 2; GLUCOSE,POINT OF CARE 214 MG/DL (70-110)
[2024-11-16] MEDS: HydrOXYzine PAMOATE 50 MG CAPSULE PO PRN (06:54)
[2024-11-16 09:28] VITALS: BP 98/70; PULSE 81; RESP 18; TEMP 97.6; O2SAT 97
[2024-11-16 11:50] LABS: GLUCOMETER DEV NAME(LOC) 3EX.2; GLUCOSE,POINT OF CARE 249 MG/DL (70-110)
[2024-11-16 17:25] LABS: GLUCOMETER DEV NAME(LOC) 3EX.2; GLUCOSE,POINT OF CARE 210 MG/DL (70-110)
[2024-11-16 23:01] VITALS: BP 94/60; PULSE 93; RESP 18; TEMP 98.2; O2SAT 96
[2024-11-17 03:15] LABS: GLUCOMETER DEV NAME(LOC) 3E.I 2; GLUCOSE,POINT OF CARE 183 MG/DL (70-110)
[2024-11-17 05:07] LABS: HEPATITIS C AB (EIA) Non Reactive (Non Reactive)
[2024-11-17 07:00] LABS: GLUCOMETER DEV NAME(LOC) 3E.I 2; GLUCOSE,POINT OF CARE 294 MG/DL (70-110)
[2024-11-17 09:21] VITALS: BP 118/105; RESP 18; TEMP 96.5; O2SAT 100
[2024-11-17 12:25] LABS: GLUCOMETER DEV NAME(LOC) 3EX.2; GLUCOSE,POINT OF CARE 179 MG/DL (70-110)
[2024-11-17] MEDS: ChlorproMAZINE HCL 50 MG/2 ML AMP IM ONE (16:16)
[2024-11-17 17:46] LABS: GLUCOMETER DEV NAME(LOC) 3EX.2; GLUCOSE,POINT OF CARE 178 MG/DL (70-110)
[2024-11-17 21:05] LABS: GLUCOMETER DEV NAME(LOC) 3E.I 2; GLUCOSE,POINT OF CARE 184 MG/DL (70-110)
[2024-11-17 21:50] VITALS: BP 106/85; PULSE 100; RESP 18; TEMP 97.3; O2SAT 100
[2024-11-18 05:45] LABS: GLUCOMETER DEV NAME(LOC) 3E.I 2; GLUCOSE,POINT OF CARE 235 MG/DL (70-110)
[2024-11-18 09:50] VITALS: BP 104/65; PULSE 90; RESP 18; TEMP 96.8; O2SAT 98
[2024-11-18] MEDS: OMEPRAZOLE 20 MG CAPSULE PO PRN (11:35)
[2024-11-18 11:45] LABS: GLUCOMETER DEV NAME(LOC) 3E.I 2; GLUCOSE,POINT OF CARE 244 MG/DL (70-110)
[2024-11-18 13:50] VITALS: BP 112/72; PULSE 88; RESP 18
[2024-11-18 13:53] VITALS: RESP 17
[2024-11-18] MEDS: ChlorproMAZINE HCL 50 MG/2 ML AMP IM ONE (16:16)
[2024-11-18 17:31] LABS: GLUCOMETER DEV NAME(LOC) 3E.I 2; GLUCOSE,POINT OF CARE 289 MG/DL (70-110)
[2024-11-18 21:17] VITALS: BP 105/71; PULSE 61; RESP 18; TEMP 97.8; O2SAT 100
[2024-11-18 22:51] LABS: GLUCOMETER DEV NAME(LOC) 3E.I 2; GLUCOSE,POINT OF CARE 252 MG/DL (70-110)
[2024-11-19 06:35] LABS: GLUCOMETER DEV NAME(LOC) 3E.I 2; GLUCOSE,POINT OF CARE 223 MG/DL (70-110)
[2024-11-19 09:59] VITALS: BP 119/85; PULSE 106; RESP 18; TEMP 97.8; O2SAT 100
[2024-11-19 11:35] LABS: GLUCOMETER DEV NAME(LOC) 3E.I 2; GLUCOSE,POINT OF CARE 261 MG/DL (70-110)
[2024-11-19] MEDS: ChlorproMAZINE HCL 50 MG/2 ML AMP IM ONE (13:23)
[2024-11-19 17:05] LABS: GLUCOMETER DEV NAME(LOC) 3E.I 2; GLUCOSE,POINT OF CARE 207 MG/DL (70-110)
[2024-11-19 20:06] LABS: GLUCOMETER DEV NAME(LOC) 3E.I 2; GLUCOSE,POINT OF CARE 144 MG/DL (70-110)
[2024-11-19 20:28] VITALS: BP 104/69; PULSE 100; RESP 16; TEMP 98; O2SAT 99
[2024-11-20 06:35] LABS: GLUCOMETER DEV NAME(LOC) 3E.I 2; GLUCOSE,POINT OF CARE 186 MG/DL (70-110)
[2024-11-20 09:23] VITALS: BP 111/89; PULSE 101; RESP 18; TEMP 97.3; O2SAT 99
[2024-11-20 11:14] VITALS: BP 104/79; PULSE 99; RESP 20; O2SAT 98
[2024-11-20 11:36] LABS: GLUCOMETER DEV NAME(LOC) 3E.I 2; GLUCOSE,POINT OF CARE 215 MG/DL (70-110)
[2024-11-20 18:46] LABS: GLUCOMETER DEV NAME(LOC) 3E.I 2; GLUCOSE,POINT OF CARE 197 MG/DL (70-110)
[2024-11-20 20:30] VITALS: BP 98/68; PULSE 78; RESP 17; TEMP 97.9; O2SAT 98
[2024-11-20 21:30] LABS: GLUCOMETER DEV NAME(LOC) 3EX.2; GLUCOSE,POINT OF CARE 134 MG/DL (70-110)
[2024-11-20 23:05] VITALS: BP 111/75; PULSE 85; RESP 18; TEMP 97.8
[2024-11-21 00:05] VITALS: RESP 18
[2024-11-21 05:50] LABS: GLUCOMETER DEV NAME(LOC) 3E.I 2; GLUCOSE,POINT OF CARE 204 MG/DL (70-110)
[2024-11-21 08:39] VITALS: BP 118/68; PULSE 88; RESP 19; TEMP 98.6; O2SAT 100
[2024-11-21 11:26] LABS: GLUCOMETER DEV NAME(LOC) 3E.I 2; GLUCOSE,POINT OF CARE 276 MG/DL (70-110)
[2024-11-21 16:03] VITALS: BP 120/69; PULSE 89; RESP 20; O2SAT 99
[2024-11-21 16:30] LABS: GLUCOMETER DEV NAME(LOC) 3E.I 2; GLUCOSE,POINT OF CARE 253 MG/DL (70-110)
[2024-11-21 20:16] LABS: GLUCOMETER DEV NAME(LOC) 3E.I 2; GLUCOSE,POINT OF CARE 131 MG/DL (70-110)
[2024-11-21 22:00] VITALS: BP 124/95; RESP 18; TEMP 98.1; O2SAT 98
[2024-11-22 04:53] VITALS: BP 131/85; PULSE 94; RESP 16; TEMP 97.7; O2SAT 100
[2024-11-22 06:06] LABS: GLUCOMETER DEV NAME(LOC) 3E.I 2; GLUCOSE,POINT OF CARE 216 MG/DL (70-110)
[2024-11-22] MEDS: DULoxetine HCL 20 MG CAPSULE PO SCH (08:51)
[2024-11-22 11:03] VITALS: BP 122/86; PULSE 97; RESP 18; TEMP 97.6; O2SAT 100
[2024-11-22 11:46] LABS: GLUCOMETER DEV NAME(LOC) 3EX.2; GLUCOSE,POINT OF CARE 299 MG/DL (70-110)
[2024-11-22 12:41] VITALS: BP 137/82; PULSE 98; RESP 18; TEMP 97.8
[2024-11-22 13:44] VITALS: RESP 18
[2024-11-22 17:15] LABS: GLUCOMETER DEV NAME(LOC) 3EX.2; GLUCOSE,POINT OF CARE 241 MG/DL (70-110)
[2024-11-22 22:11] LABS: GLUCOMETER DEV NAME(LOC) 3E.I 2; GLUCOSE,POINT OF CARE 198 MG/DL (70-110)
[2024-11-22 22:43] VITALS: BP 101/73; PULSE 100; RESP 18; TEMP 97.6; O2SAT 100
[2024-11-23 07:00] LABS: GLUCOMETER DEV NAME(LOC) 3E.I 2; GLUCOSE,POINT OF CARE 186 MG/DL (70-110)
[2024-11-23 08:30] VITALS: BP 127/97; PULSE 96; RESP 16; TEMP 97.9; O2SAT 100
[2024-11-23 12:00] LABS: GLUCOMETER DEV NAME(LOC) 3EX.2; GLUCOSE,POINT OF CARE 234 MG/DL (70-110)
[2024-11-23 16:55] LABS: GLUCOMETER DEV NAME(LOC) 3EX.2; GLUCOSE,POINT OF CARE 248 MG/DL (70-110)
[2024-11-23 23:16] LABS: GLUCOMETER DEV NAME(LOC) 3E.I 2; GLUCOSE,POINT OF CARE 161 MG/DL (70-110)
[2024-11-24 07:00] LABS: GLUCOMETER DEV NAME(LOC) 3E.I 2; GLUCOSE,POINT OF CARE 186 MG/DL (70-110)
[2024-11-24 10:07] VITALS: BP 107/64; PULSE 92; RESP 18; TEMP 97.6; O2SAT 98
[2024-11-24 10:10] VITALS: BP 101/64; PULSE 92; RESP 18; TEMP 97.6; O2SAT 98
[2024-11-24 11:08] VITALS: RESP 18
[2024-11-24 11:46] LABS: GLUCOMETER DEV NAME(LOC) 3EX.2; GLUCOSE,POINT OF CARE 196 MG/DL (70-110)
[2024-11-24 18:05] LABS: GLUCOMETER DEV NAME(LOC) 3EX.2; GLUCOSE,POINT OF CARE 190 MG/DL (70-110)
[2024-11-24 21:05] LABS: GLUCOMETER DEV NAME(LOC) 3E.I 2; GLUCOSE,POINT OF CARE 124 MG/DL (70-110)
[2024-11-24 22:33] VITALS: BP 92/61; PULSE 89; RESP 18; TEMP 98.2; O2SAT 98
[2024-11-25 00:18] VITALS: RESP 18
[2024-11-25 01:20] VITALS: RESP 18
[2024-11-25 06:30] LABS: GLUCOMETER DEV NAME(LOC) 3E.I 2; GLUCOSE,POINT OF CARE 169 MG/DL (70-110)
[2024-11-25 08:40] VITALS: BP 96/65; PULSE 96; RESP 18; TEMP 98.4; O2SAT 98
[2024-11-25 12:16] LABS: GLUCOMETER DEV NAME(LOC) 3E.I 2; GLUCOSE,POINT OF CARE 210 MG/DL (70-110)
[2024-11-25] MEDS: ChlorproMAZINE HCL 50 MG/2 ML AMP IM ONE (12:31)
[2024-11-25 16:46] LABS: GLUCOMETER DEV NAME(LOC) 3E.I 2; GLUCOSE,POINT OF CARE 244 MG/DL (70-110)
[2024-11-25 21:11] VITALS: BP 97/60; PULSE 94; RESP 18; TEMP 98.4; O2SAT 98
[2024-11-25 21:35] LABS: GLUCOMETER DEV NAME(LOC) 3E.I 2; GLUCOSE,POINT OF CARE 197 MG/DL (70-110)
[2024-11-25 22:33] VITALS: BP 99/62; PULSE 90; RESP 18; TEMP 98.5; O2SAT 98
[2024-11-26 06:46] LABS: GLUCOMETER DEV NAME(LOC) 3E.I 2; GLUCOSE,POINT OF CARE 182 MG/DL (70-110)
[2024-11-26 08:40] VITALS: BP 111/62; PULSE 84; RESP 18; TEMP 98.2; O2SAT 99
[2024-11-26 11:45] LABS: GLUCOMETER DEV NAME(LOC) 3E.I 2; GLUCOSE,POINT OF CARE 228 MG/DL (70-110)
[2024-11-26 17:01] LABS: GLUCOMETER DEV NAME(LOC) 3E.I 2; GLUCOSE,POINT OF CARE 184 MG/DL (70-110)
[2024-11-26 20:31] LABS: GLUCOMETER DEV NAME(LOC) 3EX.2; GLUCOSE,POINT OF CARE 199 MG/DL (70-110)
[2024-11-26 22:01] VITALS: BP 136/82; PULSE 96; RESP 18; TEMP 98.1
[2024-11-27 05:46] LABS: GLUCOMETER DEV NAME(LOC) 3E.I 2; GLUCOSE,POINT OF CARE 196 MG/DL (70-110)
[2024-11-27 08:15] VITALS: BP 142/81; PULSE 94; RESP 18; TEMP 98; O2SAT 96
[2024-11-27 11:41] LABS: GLUCOMETER DEV NAME(LOC) 3E.I 2; GLUCOSE,POINT OF CARE 224 MG/DL (70-110)
[2024-11-27 22:15] VITALS: BP 114/76; PULSE 96; RESP 18; TEMP 98.2; O2SAT 99
[2024-11-27 22:16] LABS: GLUCOMETER DEV NAME(LOC) 3E.I 2; GLUCOSE,POINT OF CARE 140 MG/DL (70-110)
[2024-11-27 23:15] VITALS: RESP 18
[2024-11-28 05:46] LABS: GLUCOMETER DEV NAME(LOC) 3EX.2; GLUCOSE,POINT OF CARE 185 MG/DL (70-110)
[2024-11-28 08:45] VITALS: BP 122/86; PULSE 91; RESP 18; TEMP 97.5; O2SAT 98
[2024-11-28 12:25] LABS: GLUCOMETER DEV NAME(LOC) 3E.I 2; GLUCOSE,POINT OF CARE 192 MG/DL (70-110)
[2024-11-28 17:15] LABS: GLUCOMETER DEV NAME(LOC) 3E.I 2; GLUCOSE,POINT OF CARE 237 MG/DL (70-110)
[2024-11-28 21:20] VITALS: BP 108/72; PULSE 98; RESP 18; TEMP 97.3; O2SAT 98
[2024-11-28 21:20] LABS: GLUCOMETER DEV NAME(LOC) 3E.I 2; GLUCOSE,POINT OF CARE 216 MG/DL (70-110)
[2024-11-28 21:29] VITALS: BP 108/72; PULSE 98; RESP 18; TEMP 97.3; O2SAT 98
[2024-11-28 22:22] VITALS: RESP 18
[2024-11-29 06:21] LABS: GLUCOMETER DEV NAME(LOC) 3E.I 2; GLUCOSE,POINT OF CARE 216 MG/DL (70-110)
[2024-11-29 08:00] VITALS: BP 112/70; PULSE 77; RESP 18; TEMP 98; O2SAT 100
[2024-11-29 11:50] LABS: GLUCOMETER DEV NAME(LOC) 3E.I 2; GLUCOSE,POINT OF CARE 221 MG/DL (70-110)
[2024-11-29 17:10] LABS: GLUCOMETER DEV NAME(LOC) 3E.I 2; GLUCOSE,POINT OF CARE 209 MG/DL (70-110)
[2024-11-29 21:00] LABS: GLUCOMETER DEV NAME(LOC) 3E.I 2; GLUCOSE,POINT OF CARE 95 MG/DL (70-110)
[2024-11-29 22:01] VITALS: BP 127/80; PULSE 89; RESP 16; TEMP 96.9; O2SAT 100
[2024-11-30 06:00] LABS: GLUCOMETER DEV NAME(LOC) 3E.I 2; GLUCOSE,POINT OF CARE 213 MG/DL (70-110)
[2024-11-30 09:12] VITALS: BP 140/80; PULSE 81; RESP 18; TEMP 98; O2SAT 98
[2024-11-30 11:46] LABS: GLUCOMETER DEV NAME(LOC) 3E.I 2; GLUCOSE,POINT OF CARE 154 MG/DL (70-110)
[2024-11-30 16:51] LABS: GLUCOMETER DEV NAME(LOC) 3E.I 2; GLUCOSE,POINT OF CARE 212 MG/DL (70-110)
[2024-11-30 21:05] LABS: GLUCOMETER DEV NAME(LOC) 3EX.2; GLUCOSE,POINT OF CARE 115 MG/DL (70-110)
[2024-11-30 21:20] VITALS: BP 109/79; PULSE 84; RESP 19; TEMP 97.1; O2SAT 100
[2024-12-01 06:40] LABS: GLUCOMETER DEV NAME(LOC) 3EX.2; GLUCOSE,POINT OF CARE 187 MG/DL (70-110)
[2024-12-01 08:30] VITALS: BP 110/61; PULSE 86; RESP 18; TEMP 97.2; O2SAT 97
[2024-12-01 11:51] LABS: GLUCOMETER DEV NAME(LOC) 3EX.2; GLUCOSE,POINT OF CARE 157 MG/DL (70-110)
[2024-12-01] MEDS: ONDANSETRON 4 MG TABLET PO PRN (13:05)
[2024-12-01 16:50] LABS: GLUCOMETER DEV NAME(LOC) 3EX.2; GLUCOSE,POINT OF CARE 175 MG/DL (70-110)
[2024-12-01 20:20] LABS: GLUCOMETER DEV NAME(LOC) 3EX.2; GLUCOSE,POINT OF CARE 163 MG/DL (70-110)
[2024-12-01 21:43] VITALS: BP 115/63; PULSE 84; RESP 18; TEMP 97.8
[2024-12-02 05:51] LABS: GLUCOMETER DEV NAME(LOC) 3EX.2; GLUCOSE,POINT OF CARE 155 MG/DL (70-110)
[2024-12-02 08:42] VITALS: BP 107/64; PULSE 84; RESP 18; TEMP 96.8; O2SAT 98
[2024-12-02 11:56] LABS: GLUCOMETER DEV NAME(LOC) 3EX.2; GLUCOSE,POINT OF CARE 167 MG/DL (70-110)
[2024-12-02 16:36] LABS: GLUCOMETER DEV NAME(LOC) 3EX.2; GLUCOSE,POINT OF CARE 187 MG/DL (70-110)
[2024-12-02 20:34] VITALS: BP 99/67; PULSE 86; RESP 17; TEMP 98.1; O2SAT 97
[2024-12-02 21:01] LABS: GLUCOMETER DEV NAME(LOC) 3E.I 2; GLUCOSE,POINT OF CARE 123 MG/DL (70-110)
[2024-12-03 06:21] LABS: GLUCOMETER DEV NAME(LOC) 3EX.2; GLUCOSE,POINT OF CARE 163 MG/DL (70-110)
[2024-12-03 08:28] VITALS: BP 152/92; PULSE 93; RESP 18; TEMP 97.6; O2SAT 97
[2024-12-03 08:59] VITALS: BP 152/92; PULSE 93; RESP 18; TEMP 97.6; O2SAT 97
[2024-12-03 12:00] LABS: GLUCOMETER DEV NAME(LOC) 3EX.2; GLUCOSE,POINT OF CARE 199 MG/DL (70-110)
[2024-12-03] MEDS: ChlorproMAZINE HCL 50 MG/2 ML AMP IM ONE (12:31)
[2024-12-03 16:36] LABS: GLUCOMETER DEV NAME(LOC) 3EX.2; GLUCOSE,POINT OF CARE 226 MG/DL (70-110)
[2024-12-03 20:26] LABS: GLUCOMETER DEV NAME(LOC) 3EX.2; GLUCOSE,POINT OF CARE 162 MG/DL (70-110)
[2024-12-03 22:28] VITALS: BP 103/74; PULSE 100; RESP 18; TEMP 97.9; O2SAT 99
[2024-12-04 06:41] LABS: GLUCOMETER DEV NAME(LOC) 3EX.2; GLUCOSE,POINT OF CARE 186 MG/DL (70-110)
[2024-12-04 08:00] VITALS: BP 131/102; PULSE 98; RESP 18; TEMP 97.1; O2SAT 99
[2024-12-04 11:26] LABS: GLUCOMETER DEV NAME(LOC) 3EX.2; GLUCOSE,POINT OF CARE 184 MG/DL (70-110)
[2024-12-04] MEDS ORDERED: RISP0.5T80 PO (14:23)
[2024-12-04] MEDS ORDERED: METF-1211 PO (14:25)
[2024-12-04] MEDS ORDERED: ATOR20TA65 PO (14:25)
== END 2024-12-04 16:08 | disposition home or self-care (01) | DRG 885 ==
LOC: EMS 07:14 → 3EX 22:18
PROVIDERS: ADMIT Psychiatry & Neurology Child & Adolescent Psychiatry; ATTEND Psychiatry & Neurology Child & Adolescent Psychiatry
PROC: GZ56ZZZ Individual Psychotherapy, Supportive (ICD-10-PCS; principal; 2024-11-14)
PROC: GZ58ZZZ Individual Psychotherapy, Cognitive-Behavioral (ICD-10-PCS; 2024-11-14)
PROC: GZ52ZZZ Individual Psychotherapy, Cognitive (ICD-10-PCS; 2024-11-17)
PROC: GZHZZZZ Group Psychotherapy (ICD-10-PCS; 2024-11-23)
DX: F25.1 Schizoaffective disorder, depressive type (principal); R45.851 Suicidal ideations; F33.2 Major depressive disorder, recurrent severe without psychotic features; E11.9 Type 2 diabetes mellitus without complications; I10 Essential (primary) hypertension; F12.90 Cannabis use, unspecified, uncomplicated; F10.90 Alcohol use, unspecified, uncomplicated; G47.00 Insomnia, unspecified; G89.29 Other chronic pain; Y90.0 Blood alcohol level of less than 20 mg/100 ml; K59.00 Constipation, unspecified; F41.9 Anxiety disorder, unspecified; F17.210 Nicotine dependence, cigarettes, uncomplicated; Z91.148 Patient's other noncompliance with medication regimen for other reason; Z98.1 Arthrodesis status; Z20.822 Contact with and (suspected) exposure to COVID-19
CPT/HCPCS: 80048; 80061; 80307; 81001; 82962; 83036; 85025; 86803; 87081; 87340; 99285; G0378; G0480; J3230; Q0162

== ENCOUNTER 2024-12-09 09:31 | Emergency (ER) | payer MEDICARE ==
[~2024-12-09] VITALS: Ht 180.3 cm; Wt 95.5 kg
[~2024-12-09 09:31] MED LIST changes: -ALBU18HF12 IH; +ATOR20TA65 PO; -GABA-1181 PO; +METF-1211 PO; +RISP0.5T80 PO
[2024-12-09] MEDS ORDERED: ONDANSETRON 4 MG TABLET PO ONE (09:45)
[2024-12-09 09:50] VITALS: TEMP 98.5
[2024-12-09] MEDS: ACETAMINOPHEN 500 MG TABLET PO ONE (09:57)
[2024-12-09] MEDS: LORazepam 1 MG TABLET PO ONE (09:57)
[2024-12-09 10:06] LABS: BASOPHILS % (AUTO) 0.4 % (0.0-2.0); EOSINOPHILS % (AUTO) 0.4 % (1.0-6.0); HEMATOCRIT 40.9 % (41-53); HEMOGLOBIN 14.2 g/dL (13.5-17.5); LYMPHOCYTES % (AUTO) 12.6 % (22.0-44.0); MEAN CORPUSCULAR HEMOGLOBIN 29.9 pg (26.0-34.0); MEAN CORPUSCULAR HGB CONC 34.6 G/dL (31.0-37.0); MEAN CORPUSCULAR VOLUME 86 fL (80-100); MONOCYTES # (AUTO) 0.6 K/uL (0.1-1.0); MONOCYTES % (AUTO) 7.3 % (2.0-9.0); NEUTROPHILS # (AUTO) 6.2 K/uL (1.8-7.7); NEUTROPHILS % (AUTO) 79.3 % (40.0-70.0); PLATELET COUNT (AUTO) 293 K/uL (150-450); RED BLOOD CELL COUNT(AUTO) 4.73 MIL/uL (4.50-5.90); WHITE BLOOD COUNT (AUTO) 7.8 K/uL (4.5-11.0)
[2024-12-09 10:12] LABS: ANION GAP 9 mmol/L (8-16); CALCIUM, TOTAL 9.1 mg/dL (8.8-10.5); CARBON DIOXIDE 23 mmol/L (22-29); CHLORIDE 99 mmol/L (98-107); CREATININE 0.95 mg/dL (0.60-1.30); GLOMERULAR FILTR. RATE CALC > 60 mL/min (>60); GLUCOSE,RANDOM 360 mg/dL (70-110); POTASSIUM 4.3 mmol/L (3.5-5.1); SODIUM SERUM 131 mmol/L (136-145); UREA NITROGEN, BLOOD 8 mg/dL (7-18)
[2024-12-09 10:17] LABS: ALBUMIN 3.8 g/dL (3.4-5.0); BILIRUBIN,DIRECT 0.1 mg/dL (0.00-0.20); BILIRUBIN,TOTAL 0.3 mg/dL (0.1-1.0); TOTAL PROTEIN, SERUM 6.8 g/dL (6.4-8.2)
[2024-12-09] MEDS: SODIUM CHLORIDE 0.9% 1,000 ML IV ONE (10:20)
[2024-12-09] MEDS: ONDANSETRON HCL 4 MG/2 ML VIAL IVP ONE (10:20)
[2024-12-09] MEDS: FAMOTIDINE 20 MG/2 ML VIAL IVP ONE (10:21)
[2024-12-09] MEDS: KETOROLAC TROMETHAMINE 30 MG/ML VIAL IVP ONE (10:21)
[2024-12-09 11:00] VITALS: BP 134/82; PULSE 99; RESP 19; O2SAT 98
== END 2024-12-09 11:50 | disposition home or self-care (01) ==
LOC: EMS 09:32
DX: F41.9 Anxiety disorder, unspecified (principal); E11.9 Type 2 diabetes mellitus without complications; G89.29 Other chronic pain; F17.210 Nicotine dependence, cigarettes, uncomplicated; Z98.890 Other specified postprocedural states; Z79.899 Other long term (current) drug therapy
CPT/HCPCS: 99284; 96374; 96375; 96361; 80048; 80076; 82962; 83690; 85025; 36415; J1885; J3490; J2405; J7030

== ENCOUNTER 2024-12-10 08:16 | Emergency (ER) | payer MEDICARE ==
[~2024-12-10] VITALS: Ht 180.3 cm; Wt 93.2 kg
[2024-12-10 08:22] VITALS: TEMP 98
[2024-12-10] MEDS: QUEtiapine FUMARATE 50 MG ER TABLET PO ONE (09:10)
[2024-12-10 09:15] VITALS: BP 120/88; PULSE 90; RESP 18; O2SAT 100
== END 2024-12-10 09:31 | disposition home or self-care (01) ==
LOC: EMS 08:25
DX: F41.9 Anxiety disorder, unspecified (principal); E11.9 Type 2 diabetes mellitus without complications; G89.29 Other chronic pain; F17.210 Nicotine dependence, cigarettes, uncomplicated; F13.10 Sedative, hypnotic or anxiolytic abuse, uncomplicated; Z98.890 Other specified postprocedural states; Z79.899 Other long term (current) drug therapy
CPT/HCPCS: 82962; 99283

== ENCOUNTER 2024-12-30 12:08 | Emergency (ER) | payer MEDICARE ==
[~2024-12-30] VITALS: Ht 180.3 cm; Wt 93.2 kg
[~2024-12-30 12:08] MED LIST changes: +ATOR20TA PO; -ATOR20TA65 PO; +BENZ2TAB84 PO; -DULO20CA19 PO; +GLIP5TAB16 PO; +HALO10TA21 PO; +HYDR-4808 PO; +NICO-803 TD; -OLAN10TA22 PO; +RISP-31 PO; -RISP0.5T80 PO
[2024-12-30 12:22] VITALS: BP 118/78; PULSE 119; RESP 24; TEMP 97.7; O2SAT 99
[2024-12-30 12:46] LABS: BASOPHILS % (AUTO) 0.5 % (0.0-2.0); HEMATOCRIT 41.5 % (41-53); HEMOGLOBIN 14.5 g/dL (13.5-17.5); LYMPHOCYTES # (AUTO) 1.3 K/uL (1.0-4.8); MEAN CORPUSCULAR HEMOGLOBIN 30.3 pg (26.0-34.0); MEAN CORPUSCULAR VOLUME 87 fL (80-100); MONOCYTES # (AUTO) 0.6 K/uL (0.1-1.0); NEUTROPHILS # (AUTO) 6.2 K/uL (1.8-7.7); NEUTROPHILS % (AUTO) 75.5 % (40.0-70.0); PLATELET COUNT (AUTO) 284 K/uL (150-450); RED BLOOD CELL COUNT(AUTO) 4.79 MIL/uL (4.50-5.90); RED CELL DISTRIBUTION WIDTH 13.2 % (11.5-14.5); WHITE BLOOD COUNT (AUTO) 8.2 K/uL (4.5-11.0)
[2024-12-30 12:58] LABS: ANION GAP 10 mmol/L (8-16); CALCIUM, TOTAL 8.9 mg/dL (8.8-10.5); CARBON DIOXIDE 23 mmol/L (22-29); CHLORIDE 103 mmol/L (98-107); GLOMERULAR FILTR. RATE CALC > 60 mL/min (>60); GLUCOSE,RANDOM 207 mg/dL (70-110); POTASSIUM 4.1 mmol/L (3.5-5.1); SODIUM SERUM 136 mmol/L (136-145); UREA NITROGEN, BLOOD 12 mg/dL (7-18)
[2024-12-30 13:07] LABS: TROPONIN I-HIGH SENSITIVITY 6 ng/L (<76)
[2024-12-30 13:44] LABS: ALCOHOL, URINE DRUG SCREEN NEGATIVE (NEGATIVE); AMPHET/METH SCREEN,URINE NEGATIVE (NEGATIVE); BARBITURATE SCREEN, URINE NEGATIVE (NEGATIVE); BENZODIAZEPINES SCREEN,URINE NEGATIVE (NEGATIVE); CANNABINOID SCREEN,URINE NEGATIVE (NEGATIVE); COCAINE SCREEN,URINE NEGATIVE (NEGATIVE); METHADONE SCREEN, URINE NEGATIVE (NEGATIVE); OPIATE SCREEN,URINE NEGATIVE (NEGATIVE); PHENCYCLIDINE SCREEN,URINE NEGATIVE (NEGATIVE)
[2024-12-30] MEDS: ChlorproMAZINE HCL 50 MG/2 ML AMP IM ONE (14:12)
[2024-12-30] MEDS: QUEtiapine FUMARATE 100 MG TABLET PO ONE (14:12)
== END 2024-12-30 14:43 | disposition home or self-care (01) ==
LOC: EMS 12:12
DX: F41.0 Panic disorder [episodic paroxysmal anxiety] (principal); R07.2 Precordial pain; E11.65 Type 2 diabetes mellitus with hyperglycemia; F17.210 Nicotine dependence, cigarettes, uncomplicated; Z79.899 Other long term (current) drug therapy
CPT/HCPCS: 99285; 71045; 80048; 84484; 85025; 36415; 93005; 96372; 80307; G0480; J3230

== ENCOUNTER → 2025-01-06 | Emergency (ER) | payer MEDICARE ==
[~2025-01-06] VITALS: Ht 180.3 cm; Wt 95.0 kg
[2025-01-06 01:42] VITALS: TEMP 98.2
[2025-01-06 02:37] LABS: PLATELET COUNT (AUTO) 252 K/uL (150-450); RED BLOOD CELL COUNT(AUTO) 4.71 MIL/uL (4.50-5.90); RED CELL DISTRIBUTION WIDTH 13.4 % (11.5-14.5); WHITE BLOOD COUNT (AUTO) 8.3 K/uL (4.5-11.0)
[2025-01-06 02:46] LABS: CALCIUM, TOTAL 9.1 mg/dL (8.8-10.5); CREATININE 0.93 mg/dL (0.60-1.30); GLOMERULAR FILTR. RATE CALC > 60 mL/min (>60); GLUCOSE,RANDOM 192 mg/dL (70-110); SODIUM SERUM 137 mmol/L (136-145); UREA NITROGEN, BLOOD 8 mg/dL (7-18)
[2025-01-06 04:26] VITALS: BP 132/88; PULSE 85; RESP 18; O2SAT 98
[2025-01-07 12:01] LABS: GLUCOMETER DEV NAME(LOC) BV2S.; GLUCOSE,POINT OF CARE 167 MG/DL (70-110)
== END | disposition home or self-care (01) ==
LOC: EMS 01:32
DX: S00.83XA Contusion of other part of head, initial encounter (principal); I10 Essential (primary) hypertension; E11.9 Type 2 diabetes mellitus without complications; F41.9 Anxiety disorder, unspecified; Z79.899 Other long term (current) drug therapy; W22.8XXA Striking against or struck by other objects, initial encounter; Y93.89 Activity, other specified; Y92.89 Other specified places as the place of occurrence of the external cause; Y99.8 Other external cause status
CPT/HCPCS: 70450; 72125; 80048; 82962; 85025; 99284

== ENCOUNTER 2025-01-11 13:33 | Emergency (ER) | payer MEDICARE ==
[~2025-01-11] VITALS: Ht 180.3 cm; Wt 95.0 kg
[2025-01-11] MEDS: ACETAMINOPHEN 325 MG TABLET PO ONE (14:19)
[2025-01-11 15:33] VITALS: TEMP 98.4
[2025-01-11 16:52] VITALS: BP 110/70; PULSE 105; RESP 16; O2SAT 98
== END 2025-01-11 17:06 | disposition home or self-care (01) ==
LOC: EMS 13:47
DX: S09.8XXA Other specified injuries of head, initial encounter (principal); E11.9 Type 2 diabetes mellitus without complications; F41.9 Anxiety disorder, unspecified; G89.29 Other chronic pain; F17.210 Nicotine dependence, cigarettes, uncomplicated; Z98.890 Other specified postprocedural states; Z79.899 Other long term (current) drug therapy; W07.XXXA Fall from chair, initial encounter; Y93.89 Activity, other specified; Y92.89 Other specified places as the place of occurrence of the external cause; Y99.8 Other external cause status
CPT/HCPCS: 70450; 72125; 82962; 99284

== ENCOUNTER 2025-02-04 15:26 | Emergency (ER) | payer MEDICARE, MEDICAID ==
[~2025-02-04] VITALS: Ht 172.7 cm; Wt 90.9 kg
[~2025-02-04 15:26] MED LIST changes: +GABA-1181 PO; +LITH600C5 PO
[2025-02-04 15:31] VITALS: BP 133/104; PULSE 102; RESP 18; TEMP 97.9; O2SAT 100
[2025-02-04 16:03] LABS: RED BLOOD CELL COUNT(AUTO) 4.65 MIL/uL (4.50-5.90); WHITE BLOOD COUNT (AUTO) 8.9 K/uL (4.5-11.0)
[2025-02-04 16:04] LABS: PLATELET COUNT (AUTO) 263 K/uL (150-450); RED CELL DISTRIBUTION WIDTH 13.5 % (11.5-14.5)
[2025-02-04 16:11] LABS: COVID AG,FIA SOURCE NASAL SWAB
[2025-02-04 16:12] LABS: CALCIUM, TOTAL 9.2 mg/dL (8.8-10.5); CREATININE 1.09 mg/dL (0.60-1.30); GLOMERULAR FILTR. RATE CALC > 60 mL/min (>60); GLUCOSE,RANDOM 155 mg/dL (70-110); SODIUM SERUM 138 mmol/L (136-145); UREA NITROGEN, BLOOD 15 mg/dL (7-18)
[2025-02-04 16:28] LABS: SARS-COV2 (COVID) ANTIGEN,FIA Negative (Negative)
[2025-02-04 17:18] LABS: PH,URINE DRUG SCREEN 6.5 (5.0-8.0)
[2025-02-04 17:23] LABS: AMPHET/METH SCREEN,URINE NEGATIVE (NEGATIVE); BARBITURATE SCREEN, URINE NEGATIVE (NEGATIVE); CANNABINOID SCREEN,URINE NEGATIVE (NEGATIVE); COCAINE SCREEN,URINE NEGATIVE (NEGATIVE); METHADONE SCREEN, URINE NEGATIVE (NEGATIVE)
[2025-02-04 17:24] LABS: ALCOHOL, URINE DRUG SCREEN NEGATIVE (NEGATIVE)
[2025-02-05] MEDS ORDERED: METH-659 PO (08:20)
== END 2025-02-04 17:37 | disposition home or self-care (01) ==
LOC: EMS 15:26
DX: F32.A Depression, unspecified (principal); F41.9 Anxiety disorder, unspecified; R45.851 Suicidal ideations; E11.9 Type 2 diabetes mellitus without complications; G89.29 Other chronic pain; F17.210 Nicotine dependence, cigarettes, uncomplicated; Z79.899 Other long term (current) drug therapy; Z20.822 Contact with and (suspected) exposure to COVID-19
CPT/HCPCS: 99283; 87426; 80048; 82962; 85025; 36415; 80307; G0480

== ENCOUNTER 2025-02-05 04:58 | Emergency (ER) | payer MEDICARE, MEDICAID ==
[~2025-02-05] VITALS: Ht 177.8 cm; Wt 104.5 kg
[~2025-02-05 04:58] MED LIST changes: -ATOR20TA PO; -BENZ2TAB84 PO; -GLIP5TAB16 PO; -HALO10TA21 PO; -HYDR-4808 PO; -METF-1211 PO; -NICO-803 TD; -RISP-31 PO
[2025-02-05 05:02] VITALS: TEMP 97.5
[2025-02-05] MEDS: KETOROLAC TROMETHAMINE 60 MG/2 ML VIAL IM ONE (08:00)
[2025-02-05] MEDS ORDERED: METH-659 PO (08:20)
[2025-02-05 08:48] VITALS: BP 143/87; PULSE 98; RESP 15; O2SAT 96
== END 2025-02-05 08:54 | disposition home or self-care (01) ==
LOC: EMS 04:59
DX: S39.012A Strain of muscle, fascia and tendon of lower back, initial encounter (principal); M25.551 Pain in right hip; E11.9 Type 2 diabetes mellitus without complications; G89.29 Other chronic pain; F41.9 Anxiety disorder, unspecified; F17.210 Nicotine dependence, cigarettes, uncomplicated; Z98.890 Other specified postprocedural states; Z79.899 Other long term (current) drug therapy; W19.XXXA Unspecified fall, initial encounter; Y93.89 Activity, other specified; Y92.89 Other specified places as the place of occurrence of the external cause; Y99.8 Other external cause status
CPT/HCPCS: 99284; 72100; 73521; 96372; J1885

== ENCOUNTER 2025-02-06 06:24 | Emergency (ER) | payer MEDICARE, MEDICAID ==
[~2025-02-06] VITALS: Ht 175.3 cm; Wt 95.5 kg
[~2025-02-06 06:24] MED LIST changes: +METH-659 PO
[2025-02-06 06:44] VITALS: TEMP 98.1
[2025-02-06] MEDS: IBUPROFEN 600 MG TABLET PO ONE (07:47)
[2025-02-06 08:56] VITALS: BP 121/85; PULSE 92; RESP 19; O2SAT 97
== END 2025-02-06 09:43 | disposition home or self-care (01) ==
LOC: EMS 06:26
DX: M25.551 Pain in right hip (principal); E11.9 Type 2 diabetes mellitus without complications; F41.9 Anxiety disorder, unspecified; F17.210 Nicotine dependence, cigarettes, uncomplicated; G89.29 Other chronic pain; Z98.890 Other specified postprocedural states; Z79.899 Other long term (current) drug therapy
CPT/HCPCS: 73521; 99283

== ENCOUNTER 2025-02-08 05:54 | Emergency (ER) | payer MEDICARE, MEDICAID ==
[~2025-02-08] VITALS: Ht 175.3 cm; Wt 95.5 kg
[2025-02-08 07:02] LABS: PLATELET COUNT (AUTO) 265 K/uL (150-450); RED BLOOD CELL COUNT(AUTO) 4.26 MIL/uL (4.50-5.90); RED CELL DISTRIBUTION WIDTH 13.7 % (11.5-14.5); WHITE BLOOD COUNT (AUTO) 7.3 K/uL (4.5-11.0)
[2025-02-08 07:02] LABS: APPEARANCE,URINE CLEAR (CLEAR); GLUCOSE, URINE (UA) >=1000 mg/dL (NEGATIVE); LEUKOCYTE ESTERASE ,URINE NEGATIVE (NEGATIVE); NITRATE,URINE NEGATIVE (NEGATIVE); OCCULT BLOOD,URINE NEGATIVE (NEGATIVE); PH,URINE DRUG SCREEN 6.5 (5.0-8.0); SPECIFIC GRAVITIY, URINE 1.012 (1.003-1.030)
[2025-02-08 07:10] LABS: CALCIUM, TOTAL 8.6 mg/dL (8.8-10.5); CREATININE 1.05 mg/dL (0.60-1.30); GLOMERULAR FILTR. RATE CALC > 60 mL/min (>60); GLUCOSE,RANDOM 262 mg/dL (70-110); SODIUM SERUM 138 mmol/L (136-145); UREA NITROGEN, BLOOD 13 mg/dL (7-18)
[2025-02-08 07:24] LABS: ALCOHOL, BLOOD (SERUM) < 3 mg/dL (0-10)
[2025-02-08 07:28] LABS: AMPHET/METH SCREEN,URINE NEGATIVE (NEGATIVE); BARBITURATE SCREEN, URINE NEGATIVE (NEGATIVE); CANNABINOID SCREEN,URINE NEGATIVE (NEGATIVE); COCAINE SCREEN,URINE NEGATIVE (NEGATIVE); METHADONE SCREEN, URINE NEGATIVE (NEGATIVE)
[2025-02-08 07:29] LABS: ALCOHOL, URINE DRUG SCREEN NEGATIVE (NEGATIVE)
[2025-02-08 07:45] LABS: COVID AG,FIA SOURCE NPH
[2025-02-08 08:15] LABS: SARS-COV2 (COVID) ANTIGEN,FIA Negative (Negative)
[2025-02-08 13:19] VITALS: BP 137/76; PULSE 109; RESP 20; TEMP 97.9; O2SAT 99
[2025-02-12] MEDS ORDERED: METF-1185 PO (10:22)
== END 2025-02-08 13:28 | disposition home or self-care (01) ==
LOC: EMS 06:02
DX: F41.9 Anxiety disorder, unspecified (principal); F41.1 Generalized anxiety disorder; E11.9 Type 2 diabetes mellitus without complications; F32.A Depression, unspecified; G89.29 Other chronic pain; R45.851 Suicidal ideations; F17.210 Nicotine dependence, cigarettes, uncomplicated; Z79.899 Other long term (current) drug therapy; Z98.890 Other specified postprocedural states; Z20.822 Contact with and (suspected) exposure to COVID-19
CPT/HCPCS: 99283; 87426; 80048; 80178; 81001; 85025; 36415; 96372; 80307; G0480; J3230

== ENCOUNTER 2025-02-12 22:43 | Emergency (ER) | payer MEDICARE, MEDICAID ==
[~2025-02-12] VITALS: Ht 180.3 cm; Wt 89.1 kg
[~2025-02-12 22:43] MED LIST changes: +METF-1185 PO
[2025-02-12 22:50] VITALS: TEMP 98.1
[2025-02-12 23:05] LABS: GLUCOMETER DEV NAME(LOC) ERT.7; GLUCOSE,POINT OF CARE 124 MG/DL (70-110)
[2025-02-12] MEDS: ACETAMINOPHEN 500 MG TABLET PO ONE (23:30)
[2025-02-13 02:29] VITALS: BP 131/82; PULSE 103; RESP 18; O2SAT 97
[2025-02-15] MEDS ORDERED: RISP1TAB48 PO (19:38)
== END 2025-02-13 02:37 | disposition home or self-care (01) ==
LOC: EMS 22:44
DX: S09.90XA Unspecified injury of head, initial encounter (principal); E11.9 Type 2 diabetes mellitus without complications; F41.9 Anxiety disorder, unspecified; F17.210 Nicotine dependence, cigarettes, uncomplicated; G89.29 Other chronic pain; Z79.899 Other long term (current) drug therapy; W10.8XXA Fall (on) (from) other stairs and steps, initial encounter; Y93.89 Activity, other specified; Y92.89 Other specified places as the place of occurrence of the external cause; Y99.8 Other external cause status
CPT/HCPCS: 82948; 82962; 99283